=== PATIENT | male | born 1980 | race Caucasian/White ===

== ENCOUNTER 2016-02-29 16:21 | Emergency (ER) | payer OTHER ==
[~2016-02-29] VITALS: Ht 180.3 cm; Wt 111.6 kg
[~2016-02-29 16:21] MED LIST: ABILIFY15 MG PO; ANAPROX DS550 MG PO; ANUSOL-HC2.5% RC; ASPIR-LOW81 MG PO; ASPIRIN ENTERIC81 M1 PO; ASPIRIN81 M1 PO; ATARAX25 MG PO; ATIVAN0.5 MG PO; BLOOD PRESSURE MED; BLOOD PRESSURE PILL; BP MED; BP PO; CATAFLAM50 MG PO; CIPRO500 MG PO; CIPRODEX 0.3%-7.5 ML OT; CIPROFLOXACIN500 MG PO; CLARITIN-D 12 H1 TAB PO; CLARITIN10 MG PO; CLEOCIN HCL150 MG PO; DARVOCET N 1001 TAB PO; DAYPRO600 M1 PO; DEPAKOTE500 MG PO; DICLOFENAC POTA50 MG PO; DIVALPROEX SOD500 M1 PO; DOXYCYCLINE HY100 M3 PO; DOXYCYCLINE MO100 MG PO; DOXYCYCLINE100 M2 PO; FLEXERIL10 MG PO; FLEXERIL5 MG PO; FLOMAX0.4 MG PO; FLONASE 0.05% 121 EA NAS; FOLIC ACID1 MG PO; HYDROCODONE BIT1 T11 PO; HYDROXYZINE HCL50 MG PO; IBU-8800 MG PO; IBUPROFEN600 MG PO; KEFLEX500 MG PO; KEFTAB500 MG PO; LATU40TA PO; LATU40TA1 PO; LIPITOR40 MG PO; LISINOPRIL10 MG PO; LOMOTIL 0.025 M1 TAB PO; LOPRESSOR50 M1 PO; Lopressor25 MG PO; METOPROLOL25 MG PO; MIRALAX POWDER255 GM PO; MOTRIN600 MG PO; MOTRIN800 MG PO; MULTI VITAMINS1 TAB PO; MULTIPLE VITAMI1 CAP PO; MULTIVITAMIN1 CTB PO; NAPROSYN500 MG PO; NASONEX0.05 MG/AC NS; NATURE'S BLEND F1 MG PO; ONDANSETRON4 MG PO; PERCOCET 325 MG1 TA2 PO; PHENERGAN W/DM120 ML PO; PREDNICOT20 MG PO; PREDNISONE20 MG PO; PRILOSEC10 MG PO; PRILOSEC20 M2 PO; PRILOSEC20 MG PO; PROCTOCREAM-HC2.5% TP; Phenergan25 MG PO; REMERON15 MG PO; REMERON30 M1 PO; REMERON30 MG; REMERON30 MG PO; REMERON45 M1 PO; ROBITUSSIN DM 105 ML PO; TESSALON PERLE100 M1 PO; TORADOL10 MG PO; TRAMADOL HCL50 MG PO; TRAZADONE HYDR100 MG PO; TYLENOL W/CODEI1 TA2 PO; ULTRAM50 MG PO; VIBRAMYCIN100 MG PO; VITAMIN B-11 TAB PO; VOLTAREN50 M1 PO; WELLBUTRIN XL150 MG PO; ZANTAC 150150 MG PO; ZANTAC150 MG PO; ZITHROMAX Z PA250 MG PO; ZITHROMAX250 MG PO; ZOFRAN 4 MG ED2 TAB PO; ZOFRAN ODT4 MG PO; ZOFRAN ODT4 MG SL; ZOFRAN4 MG PO; ZYRTEC10 MG PO; Zofran4 MG PO; [UNRECOGNIZED DRUG - REMARK]
[2016-02-29 16:31] VITALS: BP 179/90
[2016-02-29] MEDS ORDERED: TRAZODONE150 MG PO (16:32)
[2016-02-29] MEDS ORDERED: Motrin,Rufen800 MG PO (18:07)
[2016-04-17] MEDS ORDERED: PANTOPRAZOLE SO40 MG PO (12:08)
[2016-05-06] MEDS ORDERED: NORCO 5-325 TA1 EACH PO (01:56)
== END 2016-02-29 18:09 | disposition home or self-care (01) ==
LOC: ED 16:21
DX: T14.8 Other injury of unspecified body region (principal); M54.2 Cervicalgia; M54.5 Low back pain; F17.200 Nicotine dependence, unspecified, uncomplicated; F31.9 Bipolar disorder, unspecified; K21.9 Gastro-esophageal reflux disease without esophagitis; F41.1 Generalized anxiety disorder; I10 Essential (primary) hypertension; Z87.442 Personal history of urinary calculi; Z90.89 Acquired absence of other organs; Z88.0 Allergy status to penicillin; Z88.8 Allergy status to other drugs, medicaments and biological substances; W18.49XA Other slipping, tripping and stumbling without falling, initial encounter; Y93.67 Activity, basketball; Y92.89 Other specified places as the place of occurrence of the external cause; Y99.9 Unspecified external cause status

== ENCOUNTER 2016-07-04 02:29 | Emergency (ER) | payer MEDICAID ==
[~2016-07-04] VITALS: Ht 180.3 cm; Wt 116.1 kg
[~2016-07-04 02:29] MED LIST changes: +Motrin,Rufen800 MG PO; +NORCO 5-325 TA1 EACH PO; +PANTOPRAZOLE SO40 MG PO; +TRAZODONE150 MG PO
[2016-07-04] MEDS ORDERED: VALIUM10 MG PO (02:34)
[2016-07-04 03:23] LABS: BASO % 0.4 % (0.0-1.0); EOS # 0.2 10*3/uL (0.0-0.4); EOS % 1.5 % (1.0-4.0); HEMATOCRIT 41.5 % (42.0-52.0); HEMOGLOBIN 14.9 g/dl (14.0-18.0); IG # 0.1 10*3/uL (0.0-0.1); LYMPH # 2.6 10*3/uL (1.3-4.4); LYMPH % 25.8 % (27.0-41.0); MEAN CELL VOLUME 82.7 fl (80.0-94.0); MEAN CORPUSCULAR HGB 29.7 pg (27.0-31.0); MEAN CORPUSCULAR HGB CONC 35.9 g/dl (33.0-37.0); MONO # 0.5 10*3/uL (0.1-1.0); MONO % 5.3 % (3.0-9.0); NEUT # 6.6 10*3/uL (2.3-7.9); NEUT % 66.5 % (47.0-73.0); PLATELET COUNT AUTOMATED 257 10*3/uL (130-400); RED BLOOD COUNT 5.02 10*6/uL (4.50-5.90); RED CELL DISTRI WIDTH 12.3 % (0-14.5); WHITE BLOOD COUNT 9.9 10*3/uL (4.8-10.8)
[2016-07-04 03:27] LABS: URINE AMPHETAMINES < 1000 (1000ng/ml); URINE BARBITURATES < 200 (200ng/ml); URINE COCAINE < 300 (300ng/ml)
[2016-07-04 03:46] LABS: ALBUMIN 4.3 gm/dl (3.1-4.5); ALKALINE PHOSPHATASE 97 U/L (45-117); BILIRUBIN, TOTAL 0.2 mg/dl (0.2-1.0); BUN 12 mg/dl (7-24); CARBON DIOXIDE 21 mmol/L (21-32); CHLORIDE 106 mmol/L (98-107); EST GLOM FILT AFRICAN AMERICAN > 60 ml/min; GLUCOSE 114 mg/dL (65-99); POTASSIUM 3.5 mmol/L (3.5-5.1); SGOT/AST 23 IU/L (3-35); SGPT/ALT 44 U/L (12-78); SODIUM 142 mmol/L (136-145); TOTAL PROTEIN 7.8 gm/dL (6.4-8.2)
[2016-07-04 06:20] VITALS: BP 125/55
== END 2016-07-04 07:42 | disposition home or self-care (01) ==
LOC: ED 02:29
PROVIDERS: Emergency Medicine
DX: F10.10 Alcohol abuse, uncomplicated (principal); K21.9 Gastro-esophageal reflux disease without esophagitis; I10 Essential (primary) hypertension; Z88.0 Allergy status to penicillin; Z88.8 Allergy status to other drugs, medicaments and biological substances

== ENCOUNTER 2016-07-11 21:54 | Emergency (ER) | payer MEDICAID ==
[~2016-07-11 21:54] MED LIST changes: +VALIUM10 MG PO
[2016-07-11 23:25] LABS: BASO # 0.1 10*3/uL (0.0-0.1); BASO % 0.5 % (0.0-1.0); EOS # 0.3 10*3/uL (0.0-0.4); EOS % 2.6 % (1.0-4.0); HEMATOCRIT 48.8 % (42.0-52.0); IG # 0.1 10*3/uL (0.0-0.1); LYMPH # 2.4 10*3/uL (1.3-4.4); LYMPH % 21.8 % (27.0-41.0); MEAN CELL VOLUME 83.7 fl (80.0-94.0); MEAN CORPUSCULAR HGB 29.2 pg (27.0-31.0); MEAN CORPUSCULAR HGB CONC 34.8 g/dl (33.0-37.0); MEAN PLATELET VOLUME 10.1 fl (9.6-12.3); MONO # 0.6 10*3/uL (0.1-1.0); NEUT # 7.7 10*3/uL (2.3-7.9); NEUT % 69.6 % (47.0-73.0); PLATELET COUNT AUTOMATED 281 10*3/uL (130-400); RED BLOOD COUNT 5.83 10*6/uL (4.50-5.90); RED CELL DISTRI WIDTH 12.3 % (0-14.5)
[2016-07-11 23:39] LABS: ALKALINE PHOSPHATASE 121 U/L (45-117); BILIRUBIN, TOTAL 0.6 mg/dl (0.2-1.0); BUN 8 mg/dl (7-24); CARBON DIOXIDE 27 mmol/L (21-32); CHLORIDE 104 mmol/L (98-107); EST GLOM FILT AFRICAN AMERICAN > 60 ml/min; GLUCOSE 90 mg/dL (65-99); POTASSIUM 4.2 mmol/L (3.5-5.1); SGOT/AST 26 IU/L (3-35); SGPT/ALT 48 U/L (12-78); SODIUM 141 mmol/L (136-145); TOTAL PROTEIN 8.7 gm/dL (6.4-8.2)
[2016-07-11] MEDS ORDERED: OMEPRAZOLE10 MG PO (23:42)
[2016-07-11] MEDS ORDERED: ZOFRAN4 MG PO (23:42)
[2016-07-11] MEDS ORDERED: CARAFATE1 G1 PO (23:42)
[2016-07-11 23:58] VITALS: BP 140/82
== END 2016-07-12 00:10 | disposition home or self-care (01) ==
LOC: ED 21:54
PROVIDERS: Nurse Practitioner Family
DX: K29.70 Gastritis, unspecified, without bleeding (principal); F17.200 Nicotine dependence, unspecified, uncomplicated; F31.9 Bipolar disorder, unspecified; K21.9 Gastro-esophageal reflux disease without esophagitis; I10 Essential (primary) hypertension; Z87.442 Personal history of urinary calculi; Z90.89 Acquired absence of other organs; Z79.899 Other long term (current) drug therapy; Z88.0 Allergy status to penicillin; Z88.8 Allergy status to other drugs, medicaments and biological substances

== ENCOUNTER 2016-07-24 03:32 | Emergency (ER) | payer MEDICAID ==
[~2016-07-24 03:32] MED LIST changes: +CARAFATE1 G1 PO; +OMEPRAZOLE10 MG PO
== END 2016-07-24 03:55 | disposition left against medical advice (07) ==
LOC: ED 03:32
DX: F10.10 Alcohol abuse, uncomplicated (principal); F17.200 Nicotine dependence, unspecified, uncomplicated; F31.9 Bipolar disorder, unspecified; K21.9 Gastro-esophageal reflux disease without esophagitis; I10 Essential (primary) hypertension; Z87.442 Personal history of urinary calculi; Z90.89 Acquired absence of other organs; Z98.890 Other specified postprocedural states; Z88.0 Allergy status to penicillin; Z88.6 Allergy status to analgesic agent; Z88.8 Allergy status to other drugs, medicaments and biological substances

== ENCOUNTER 2016-08-13 16:14 | Inpatient (IN) | payer MEDICAID ==
[~2016-08-13] VITALS: Ht 180.3 cm; Wt 112.1 kg
--- NOTE | ~2016-08-13 | CON ---
[place], [place] REPORT OF CONSULTATION NAME: JOYCE OLIVA JR UNIT #: [id number] ROOM: 515 DOCTOR: PHILOMENA MCKEONNAHUM BIRTHDATE: [birth year] DOS: 08/15/2016 HISTORY OF PRESENT ILLNESS: The patient came in with recurrent precordial chest discomfort. The patient had a workup done more than a year ago. No recent workup. The patient has a history of chewing tobacco, history of recurrent chest discomfort, history of hypertension, long time with a strong family history of heart disease. No significant dyspnea. No history of heart attack. No cardiac surgery. REVIEW OF SYSTEMS: HEENT: Unremarkable. CARDIOPULMONARY: As described. GASTROINTESTINAL: Unremarkable. NEUROLOGIC: The patient denies any syncope or presyncope. PHYSICAL EXAMINATION: VITAL SIGNS: Stable. GENERAL: Alert, not in any acute distress. NECK: No jugular venous distention noted. SKIN: Warm, not diaphoretic. NECK: Supple. LUNGS: No rales heard. HEART: S1, S2 regular. No gallops. ABDOMEN: Soft. Moderately obese. EXTREMITIES: No significant edema noted. IMPRESSION: Angina pectoris, evaluating for ischemic heart disease, strong family stressors. PLAN: Lexiscan with a Cardiolite could be done as an outpatient, Dr. Sorensen will perform and follow the patient. He has seen Dr. Sorensen before. Weekend I am covering Dr. Sorensen. Thank you very much for asking me to see the patient. I will follow the patient. NAHUM QUACH MD CM:CONSTR:REPORT OF CONSULTATION 1659 08/16/16 2252 interface IRAIS SORENSEN MD
--- NOTE | ~2016-08-13 | PR ---
[place], [place] PROGRESS NOTE NAME: JOYCE OLIVA JR UNIT #: [id number] ROOM: 515 DOCTOR: MELQUIADES LAM MD BIRTHDATE: [birth year] DOS: 08/17/2016 SUBJECTIVE: This man has been in this hospital many times with chest pain and has had stress test done in the past for the same and was unremarkable. He was admitted to the hospital because of left-sided chest pain and also numbness of the shoulder, arm, forearm and hand. All fingers are numb and he volunteered that his left leg became numb partly at the same time. When he walks around, this feeling does not get any worse and this has been present for the last 3 days and has not let up at all. There has not been any sweating, undue shortness of breath or any dizziness, no orthopnea. PHYSICAL EXAMINATION: GENERAL: This is a patient who is moderately obese, very pleasant, alert, fairly comfortable. His complexion is fine. VITAL SIGNS: Pulse is 64 and regular. Blood pressure 130/73. NECK: Normal JVP. CARDIOVASCULAR: Auscultation is unremarkable. LUNGS: Clear. EXTREMITIES: No edema of the lower extremities. IMPRESSION: This patient has left-sided chest pain, numbness and numbness of the whole left upper extremity and partial numbness of the left leg. The symptoms have not abated in the last 3 days. I think a common link for this needs to be sought and cervical spine may be the seat of his problem and perhaps a CT scan of the cervical spine would be of some help. He has already been scheduled for a stress Cardiolite for tomorrow morning, which Dr. Dueñas will do. I thank you on behalf of Dr. Dueñas for this consult. MELQUIADES LAM MD CM:PNTRANS [id number] MELQUIADES LAM MD 08/18/16 0124 interface
[2016-08-13 16:24] VITALS: BP 143/92
[2016-08-13 16:51] LABS: BASO % 0.4 % (0.0-1.0); EOS # 0.4 10*3/uL (0.0-0.4); EOS % 4.8 % (1.0-4.0); HEMATOCRIT 43.2 % (42.0-52.0); HEMOGLOBIN 15.2 g/dl (14.0-18.0); LYMPH # 2.4 10*3/uL (1.3-4.4); LYMPH % 28.2 % (27.0-41.0); MEAN CELL VOLUME 83.6 fl (80.0-94.0); MEAN CORPUSCULAR HGB 29.4 pg (27.0-31.0); MEAN CORPUSCULAR HGB CONC 35.2 g/dl (33.0-37.0); MEAN PLATELET VOLUME 9.8 fl (9.6-12.3); MONO # 0.6 10*3/uL (0.1-1.0); MONO % 6.8 % (3.0-9.0); NEUT # 5.1 10*3/uL (2.3-7.9); NEUT % 59.6 % (47.0-73.0); PLATELET COUNT AUTOMATED 249 10*3/uL (130-400); RED BLOOD COUNT 5.17 10*6/uL (4.50-5.90); RED CELL DISTRI WIDTH 12.1 % (0-14.5); WHITE BLOOD COUNT 8.5 10*3/uL (4.8-10.8)
[2016-08-13 16:59] LABS: PROTHROMBIN TIME 10.4 SECONDS (9.0-12.4)
[2016-08-13 17:10] LABS: ALBUMIN 4.1 gm/dl (3.1-4.5); ALKALINE PHOSPHATASE 85 U/L (45-117); BILIRUBIN, TOTAL 0.4 mg/dl (0.2-1.0); BUN 9 mg/dl (7-24); CARBON DIOXIDE 26 mmol/L (21-32); CHLORIDE 104 mmol/L (98-107); EST GLOM FILT AFRICAN AMERICAN > 60 ml/min; GLUCOSE 248 mg/dL (65-99); MAGNESIUM 1.9 mg/dL (1.5-2.1); POTASSIUM 3.8 mmol/L (3.5-5.1); SGOT/AST 22 IU/L (3-35); SGPT/ALT 53 U/L (12-78); SODIUM 141 mmol/L (136-145); TOTAL PROTEIN 7.2 gm/dL (6.4-8.2)
[2016-08-13 17:14] LABS: TROPONIN I < 0.015 ng/ml (<0.045)
[2016-08-13 18:01] VITALS: BP 142/80
[2016-08-13 18:35] VITALS: BP 122/76
[2016-08-13 19:39] VITALS: BP 126/76
[2016-08-13 20:57] VITALS: BP 132/70
[2016-08-14] VITALS: BP 116/59
[2016-08-14 06:37] LABS: BASO % 0.6 % (0.0-1.0); EOS # 0.4 10*3/uL (0.0-0.4); EOS % 6.3 % (1.0-4.0); HEMATOCRIT 40.4 % (42.0-52.0); HEMOGLOBIN 14.3 g/dl (14.0-18.0); LYMPH # 3.1 10*3/uL (1.3-4.4); LYMPH % 44.2 % (27.0-41.0); MEAN CELL VOLUME 84.5 fl (80.0-94.0); MEAN CORPUSCULAR HGB 29.9 pg (27.0-31.0); MEAN CORPUSCULAR HGB CONC 35.4 g/dl (33.0-37.0); MEAN PLATELET VOLUME 10.2 fl (9.6-12.3); MONO # 0.4 10*3/uL (0.1-1.0); MONO % 6.1 % (3.0-9.0); NEUT % 42.4 % (47.0-73.0); PLATELET COUNT AUTOMATED 242 10*3/uL (130-400); RED BLOOD COUNT 4.78 10*6/uL (4.50-5.90); RED CELL DISTRI WIDTH 12.1 % (0-14.5)
[2016-08-14 06:59] LABS: HEMOGLOBIN A1c 5.7 % (4.8-5.6)
[2016-08-14 07:04] LABS: BUN 11 mg/dl (7-24); CARBON DIOXIDE 26 mmol/L (21-32); CHLORIDE 106 mmol/L (98-107); CHOLESTEROL 149 mg/dL (<200); EST GLOM FILT AFRICAN AMERICAN > 60 ml/min; FREE T4 0.89 ng/dl (0.76-1.46); GLUCOSE 104 mg/dL (65-99); HDL CHOLESTEROL 24 mg/dl (40-60); LDL CHOLESTEROL 52 mg/dL (9-159); MAGNESIUM 1.9 mg/dL (1.5-2.1); PHOSPHOROUS 3.9 mg/dL (2.5-4.9); POTASSIUM 4.1 mmol/L (3.5-5.1); SODIUM 143 mmol/L (136-145); TRIGLYCERIDES 364 mg/dl (<150); VLDL CHOLESTEROL 73 mg/dL (6-40)
[2016-08-14 07:26] LABS: FOLIC ACID 6.81 ng/mL (>5.38); VITAMIN D, 25-HYDROXY 30.8 ng/mL (30-100)
[2016-08-14 08:00] VITALS: BP 115/59
[2016-08-14 12:00] VITALS: BP 113/62
[2016-08-14 16:00] VITALS: BP 110/64; BP 126/72
[2016-08-14 20:00] VITALS: BP 151/87
[2016-08-15] VITALS: BP 117/64
[2016-08-15 08:00] VITALS: BP 124/66
[2016-08-15 12:00] VITALS: BP 126/68
[2016-08-15 16:00] VITALS: BP 138/62
[2016-08-15 20:00] VITALS: BP 141/76
[2016-08-16] VITALS: BP 134/76; BP 134/78
[2016-08-16 08:00] VITALS: BP 120/66
[2016-08-16 12:00] VITALS: BP 143/68
[2016-08-16] MEDS ORDERED: OMEPRAZOLE10 MG PO (13:19)
[2016-08-16 16:00] VITALS: BP 125/64
[2016-08-16 20:00] VITALS: BP 151/77
[2016-08-17] VITALS: BP 113/59
[2016-08-17 07:01] LABS: BASO # 0.1 10*3/uL (0.0-0.1); BASO % 0.7 % (0.0-1.0); EOS # 0.5 10*3/uL (0.0-0.4); EOS % 5.3 % (1.0-4.0); HEMATOCRIT 40.9 % (42.0-52.0); HEMOGLOBIN 14.6 g/dl (14.0-18.0); LYMPH # 3.1 10*3/uL (1.3-4.4); LYMPH % 34.3 % (27.0-41.0); MEAN CELL VOLUME 83.3 fl (80.0-94.0); MEAN CORPUSCULAR HGB 29.7 pg (27.0-31.0); MEAN CORPUSCULAR HGB CONC 35.7 g/dl (33.0-37.0); MEAN PLATELET VOLUME 10.2 fl (9.6-12.3); MONO # 0.6 10*3/uL (0.1-1.0); MONO % 6.6 % (3.0-9.0); NEUT # 4.7 10*3/uL (2.3-7.9); NEUT % 52.8 % (47.0-73.0); PLATELET COUNT AUTOMATED 214 10*3/uL (130-400); RED BLOOD COUNT 4.91 10*6/uL (4.50-5.90)
[2016-08-17 07:29] LABS: EST GLOM FILT AFRICAN AMERICAN > 60 ml/min
[2016-08-17 08:00] VITALS: BP 118/66
[2016-08-17 12:00] VITALS: BP 126/61
[2016-08-17 16:30] VITALS: BP 130/73
[2016-08-17 20:00] VITALS: BP 150/76
[2016-08-18] VITALS: BP 124/67
[2016-08-18 12:00] VITALS: BP 144/96
== END 2016-08-18 16:02 | disposition home or self-care (01) | DRG 313 ==
LOC: ED 16:14 → 5E 18:10 → EDHOLD 18:10 → 5E 18:16
PROVIDERS: Emergency Medicine; Internal Medicine Hospice and Palliative Medicine
DX: R07.89 Other chest pain (principal); I20.9 Angina pectoris, unspecified; I11.0 Hypertensive heart disease with heart failure; I50.32 Chronic diastolic (congestive) heart failure; I45.81 Long QT syndrome; F31.9 Bipolar disorder, unspecified; F41.1 Generalized anxiety disorder; K21.9 Gastro-esophageal reflux disease without esophagitis; E78.5 Hyperlipidemia, unspecified; F17.200 Nicotine dependence, unspecified, uncomplicated; E66.09 Other obesity due to excess calories; R00.0 Tachycardia, unspecified; R73.9 Hyperglycemia, unspecified; Z88.0 Allergy status to penicillin; Z88.8 Allergy status to other drugs, medicaments and biological substances; Z87.442 Personal history of urinary calculi; Z83.3 Family history of diabetes mellitus; Z82.49 Family history of ischemic heart disease and other diseases of the circulatory system; Z82.3 Family history of stroke; Z79.899 Other long term (current) drug therapy; Z71.6 Tobacco abuse counseling; Z68.34 Body mass index [BMI] 34.0-34.9, adult

== ENCOUNTER 2016-09-10 21:38 | Emergency (ER) | payer MEDICAID ==
[~2016-09-10] VITALS: Ht 180.3 cm; Wt 111.6 kg
--- NOTE | ~2016-09-10 | EKG ---
[place], [place] ELECTROCARDIOGRAM REPORT NAME: JOYCE OLIVA JR UNIT #: [id number] ROOM: DOCTOR: IRAIS SORENSEN MD BIRTHDATE: [birth year] DOS: 09/10/2016 TIME: 22:03:28 Sinus rhythm, normal axis, normal intervals. Nonspecific ST-T changes. IRAIS SORENSEN MD CM:EKGRPT:ELECTROCARDIOGRAM REPORT 1124 1144 IRAIS SORENSEN MD
[2016-09-10 21:40] VITALS: BP 120/67
[2016-09-10 22:05] LABS: BASO # 0.1 10*3/uL (0.0-0.1); BASO % 0.4 % (0.0-1.0); EOS # 0.4 10*3/uL (0.0-0.4); EOS % 3.3 % (1.0-4.0); HEMATOCRIT 44.5 % (42.0-52.0); HEMOGLOBIN 16.1 g/dl (14.0-18.0); IG # 0.1 10*3/uL (0.0-0.1); LYMPH # 3.1 10*3/uL (1.3-4.4); LYMPH % 26.1 % (27.0-41.0); MEAN CELL VOLUME 82.3 fl (80.0-94.0); MEAN CORPUSCULAR HGB 29.8 pg (27.0-31.0); MEAN CORPUSCULAR HGB CONC 36.2 g/dl (33.0-37.0); MEAN PLATELET VOLUME 10.5 fl (9.6-12.3); MONO # 0.6 10*3/uL (0.1-1.0); NEUT # 7.6 10*3/uL (2.3-7.9); NEUT % 64.8 % (47.0-73.0); PLATELET COUNT AUTOMATED 286 10*3/uL (130-400); RED BLOOD COUNT 5.41 10*6/uL (4.50-5.90); RED CELL DISTRI WIDTH 12.5 % (0-14.5); WHITE BLOOD COUNT 11.7 10*3/uL (4.8-10.8)
[2016-09-10] MEDS ORDERED: DOXEPIN25 MG PO (22:14)
[2016-09-10 22:15] LABS: INTERNATIONAL NORM RATIO 0.9 (2.0-3.5)
[2016-09-10 22:20] LABS: ALBUMIN 4.1 gm/dl (3.1-4.5); ALKALINE PHOSPHATASE 88 U/L (45-117); BILIRUBIN, TOTAL 0.4 mg/dl (0.2-1.0); BUN 18 mg/dl (7-24); CARBON DIOXIDE 25 mmol/L (21-32); CHLORIDE 104 mmol/L (98-107); EST GLOM FILT AFRICAN AMERICAN > 60 ml/min; GLUCOSE 108 mg/dL (65-99); MAGNESIUM 1.9 mg/dL (1.5-2.1); SGOT/AST 35 IU/L (3-35); SGPT/ALT 50 U/L (12-78); SODIUM 138 mmol/L (136-145); TOTAL PROTEIN 7.8 gm/dL (6.4-8.2)
[2016-09-10 22:22] LABS: TROPONIN I < 0.015 ng/ml (<0.045)
== END 2016-09-11 00:56 | disposition home or self-care (01) ==
LOC: ED 21:38
PROVIDERS: Student in an Organized Health Care Education/Training Program
DX: R07.89 Other chest pain (principal); F17.200 Nicotine dependence, unspecified, uncomplicated; K21.9 Gastro-esophageal reflux disease without esophagitis; I11.0 Hypertensive heart disease with heart failure; I50.9 Heart failure, unspecified; E78.5 Hyperlipidemia, unspecified; Z88.0 Allergy status to penicillin; Z88.8 Allergy status to other drugs, medicaments and biological substances; Z79.899 Other long term (current) drug therapy

== ENCOUNTER → 2016-09-17 | Outpatient (CLI) | payer MEDICAID ==
[~2016-09-17] MED LIST changes: +DOXEPIN25 MG PO
== END | disposition home or self-care (01) ==
LOC: RAD 15:53
DX: M54.2 Cervicalgia (principal); M25.512 Pain in left shoulder

== ENCOUNTER 2016-09-29 14:54 | Emergency (ER) | payer MEDICAID ==
[~2016-09-29] VITALS: Ht 180.3 cm; Wt 111.6 kg
[2016-09-29 15:13] VITALS: BP 155/85
[2016-09-29 15:30] VITALS: BP 155/85
[2016-09-29 15:42] LABS: BASO % 0.3 % (0.0-1.0); EOS # 0.3 10*3/uL (0.0-0.4); EOS % 2.9 % (1.0-4.0); HEMATOCRIT 45.3 % (42.0-52.0); HEMOGLOBIN 15.8 g/dl (14.0-18.0); LYMPH # 2.1 10*3/uL (1.3-4.4); LYMPH % 24.1 % (27.0-41.0); MEAN CORPUSCULAR HGB 29.3 pg (27.0-31.0); MEAN CORPUSCULAR HGB CONC 34.9 g/dl (33.0-37.0); MEAN PLATELET VOLUME 10.1 fl (9.6-12.3); MONO # 0.4 10*3/uL (0.1-1.0); MONO % 4.1 % (3.0-9.0); NEUT # 5.9 10*3/uL (2.3-7.9); NEUT % 68.3 % (47.0-73.0); PLATELET COUNT AUTOMATED 245 10*3/uL (130-400); RED BLOOD COUNT 5.39 10*6/uL (4.50-5.90); RED CELL DISTRI WIDTH 12.2 % (0-14.5); WHITE BLOOD COUNT 8.6 10*3/uL (4.8-10.8)
[2016-09-29 15:47] LABS: URINE AMPHETAMINES < 1000 (1000ng/ml); URINE BARBITURATES < 200 (200ng/ml); URINE COCAINE < 300 (300ng/ml)
[2016-09-29 15:55] LABS: ALBUMIN 4.4 gm/dl (3.1-4.5); ALKALINE PHOSPHATASE 101 U/L (45-117); BILIRUBIN, TOTAL 0.4 mg/dl (0.2-1.0); BUN 11 mg/dl (7-24); CARBON DIOXIDE 27 mmol/L (21-32); CHLORIDE 102 mmol/L (98-107); EST GLOM FILT AFRICAN AMERICAN > 60 ml/min; GLUCOSE 109 mg/dL (65-99); SGOT/AST 35 IU/L (3-35); SGPT/ALT 64 U/L (12-78); SODIUM 138 mmol/L (136-145); TOTAL PROTEIN 7.5 gm/dL (6.4-8.2)
[2016-09-29 17:45] VITALS: BP 140/80
[2016-09-29 19:16] VITALS: BP 134/92
== END 2016-09-29 21:00 | disposition home or self-care (01) ==
LOC: ED 14:54 → EDHOLD 16:38 → ED 16:38
PROVIDERS: Nurse Practitioner Family
DX: F10.239 Alcohol dependence with withdrawal, unspecified (principal); K21.9 Gastro-esophageal reflux disease without esophagitis; I10 Essential (primary) hypertension; I50.32 Chronic diastolic (congestive) heart failure; F31.9 Bipolar disorder, unspecified; Z88.0 Allergy status to penicillin; Z88.8 Allergy status to other drugs, medicaments and biological substances; Z79.899 Other long term (current) drug therapy

== ENCOUNTER 2016-11-01 21:47 | Emergency (ER) | payer MEDICAID ==
[~2016-11-01] VITALS: Ht 177.8 cm; Wt 93.0 kg
[2016-11-01 21:52] VITALS: BP 157/86
[2016-11-01] MEDS ORDERED: CYCLOBENZAPRINE10 MG PO (23:20)
[2016-11-01] MEDS ORDERED: MEDROL DOSEPAK4 MG PO (23:20)
== END 2016-11-01 23:35 | disposition home or self-care (01) ==
LOC: ED 21:47
DX: S16.1XXA Strain of muscle, fascia and tendon at neck level, initial encounter (principal); Z90.89 Acquired absence of other organs; Z98.890 Other specified postprocedural states; Z79.899 Other long term (current) drug therapy; Z88.0 Allergy status to penicillin; Z88.8 Allergy status to other drugs, medicaments and biological substances; Z88.6 Allergy status to analgesic agent; W22.8XXA Striking against or struck by other objects, initial encounter; Y93.61 Activity, american tackle football; Y92.89 Other specified places as the place of occurrence of the external cause; Y99.9 Unspecified external cause status

== ENCOUNTER 2016-11-03 01:22 | Emergency (ER) | payer MEDICAID ==
[~2016-11-03] VITALS: Ht 180.3 cm; Wt 120.2 kg
[~2016-11-03 01:22] MED LIST changes: +CYCLOBENZAPRINE10 MG PO; +MEDROL DOSEPAK4 MG PO
[2016-11-03 01:43] LABS: BASO % 0.1 % (0.0-1.0); EOS % 0.2 % (1.0-4.0); HEMATOCRIT 43.8 % (42.0-52.0); HEMOGLOBIN 15.6 g/dl (14.0-18.0); LYMPH # 3.6 10*3/uL (1.3-4.4); LYMPH % 21.3 % (27.0-41.0); MEAN CELL VOLUME 82.5 fl (80.0-94.0); MEAN CORPUSCULAR HGB 29.4 pg (27.0-31.0); MEAN CORPUSCULAR HGB CONC 35.6 g/dl (33.0-37.0); MEAN PLATELET VOLUME 9.9 fl (9.6-12.3); MONO % 6.1 % (3.0-9.0); NEUT % 71.6 % (47.0-73.0); PLATELET COUNT AUTOMATED 289 10*3/uL (130-400); RED BLOOD COUNT 5.31 10*6/uL (4.50-5.90); RED CELL DISTRI WIDTH 12.6 % (0-14.5); WHITE BLOOD COUNT 16.8 10*3/uL (4.8-10.8)
[2016-11-03 02:01] LABS: ACETAMINOPHEN (TYLENOL) < 2.0 ug/ml (10-30); ALBUMIN 4.4 gm/dl (3.1-4.5); ALKALINE PHOSPHATASE 109 U/L (45-117); BUN 8 mg/dl (7-24); CHLORIDE 103 mmol/L (98-107); CREATININE 0.97 mg/dL (0.70-1.30); POTASSIUM 3.9 mmol/L (3.5-5.1); SGOT/AST 35 IU/L (3-35); SGPT/ALT 49 U/L (12-78); SODIUM 139 mmol/L (136-145); TOTAL PROTEIN 8.3 gm/dL (6.4-8.2)
[2016-11-03 02:41] LABS: BILIRUBIN NEGATIVE (NEGATIVE); BLOOD 2+ (NEGATIVE); CLARITY CLEAR (CLEAR); COLOR YELLOW (YELLOW); GLUCOSE NEGATIVE (NEGATIVE); KETONE NEGATIVE (NEGATIVE); LEUKO ESTERASE NEGATIVE (NEGATIVE); NITRITE NEGATIVE (NEGATIVE); SPECIFIC GRAVITY <= 1.005 (1.005-1.030); UROBILINOGEN 0.2 E.U./dl (0.2-1.0)
[2016-11-03 02:50] LABS: URINE AMPHETAMINES < 1000 (1000ng/ml); URINE BARBITURATES < 200 (200ng/ml); URINE BENZODIAZEPINES < 200 (200ng/ml); URINE CANNABINOIDS (THC) < 50 (50ng/ml); URINE COCAINE < 300 (300ng/ml); URINE METHADONE < 300 (300ng/ml); URINE OPIATES < 300 (300ng/ml); URINE PHENCYCLIDINE < 25 (25ng/ml)
[2016-11-03 06:22] VITALS: BP 115/46
== END 2016-11-03 09:50 | disposition home or self-care (01) ==
LOC: ED 01:22
PROVIDERS: Emergency Medicine Emergency Medical Services
DX: F10.129 Alcohol abuse with intoxication, unspecified (principal); F31.9 Bipolar disorder, unspecified; I11.0 Hypertensive heart disease with heart failure; I50.9 Heart failure, unspecified; E78.5 Hyperlipidemia, unspecified; K21.9 Gastro-esophageal reflux disease without esophagitis; E66.9 Obesity, unspecified; Z87.442 Personal history of urinary calculi; Z90.89 Acquired absence of other organs; Z98.890 Other specified postprocedural states; Z88.0 Allergy status to penicillin; Z88.6 Allergy status to analgesic agent; Z88.8 Allergy status to other drugs, medicaments and biological substances; Z79.899 Other long term (current) drug therapy

== ENCOUNTER 2016-11-21 23:23 | Emergency (ER) | payer MEDICAID ==
[~2016-11-21] VITALS: Ht 180.3 cm; Wt 109.8 kg
[2016-11-21 23:39] VITALS: BP 162/109
[2016-11-22] MEDS ORDERED: CLARITIN10 MG PO (01:05)
== END 2016-11-22 02:05 | disposition home or self-care (01) ==
LOC: ED 23:23
DX: L29.9 Pruritus, unspecified (principal); T48.3X5A Adverse effect of antitussives, initial encounter; F17.200 Nicotine dependence, unspecified, uncomplicated; Z90.89 Acquired absence of other organs; Z87.442 Personal history of urinary calculi; Z79.899 Other long term (current) drug therapy; Z88.0 Allergy status to penicillin; Z88.6 Allergy status to analgesic agent; Y92.9 Unspecified place or not applicable

== ENCOUNTER 2016-12-10 23:52 | Inpatient (IN) | payer OTHER ==
[~2016-12-10] VITALS: Ht 180.3 cm; Wt 107.6 kg
[2016-12-11] VITALS (8 sets, daily range): BP systolic 124–176; BP diastolic 74–109
--- NOTE | 2016-12-11 00:20 | NUR ---
EKG DONE ON 12-03-16 AT 0000 WAS DONE BY EDUCATIONAL INSTITUTION PRESIDENT.
[2016-12-11 00:27] LABS: BASO # 0.1 10*3/uL (0.0-0.1); BASO % 0.7 % (0.0-1.0); EOS # 0.3 10*3/uL (0.0-0.4); HEMATOCRIT 42.4 % (42.0-52.0); HEMOGLOBIN 14.8 g/dl (14.0-18.0); LYMPH # 2.6 10*3/uL (1.3-4.4); LYMPH % 30.4 % (27.0-41.0); MEAN CELL VOLUME 84.3 fl (80.0-94.0); MEAN CORPUSCULAR HGB 29.4 pg (27.0-31.0); MEAN CORPUSCULAR HGB CONC 34.9 g/dl (33.0-37.0); MEAN PLATELET VOLUME 9.7 fl (9.6-12.3); MONO # 0.4 10*3/uL (0.1-1.0); MONO % 4.6 % (3.0-9.0); NEUT # 5.2 10*3/uL (2.3-7.9); NEUT % 60.9 % (47.0-73.0); PLATELET COUNT AUTOMATED 249 10*3/uL (130-400); RED BLOOD COUNT 5.03 10*6/uL (4.50-5.90); RED CELL DISTRI WIDTH 12.6 % (0-14.5); WHITE BLOOD COUNT 8.5 10*3/uL (4.8-10.8)
[2016-12-11 00:37] LABS: ACT PARTIAL THROMBO TIME 24.7 SECONDS (20.8-31.5)
[2016-12-11 00:43] LABS: ALBUMIN 4.1 gm/dl (3.1-4.5); ALKALINE PHOSPHATASE 82 U/L (45-117); BUN 9 mg/dl (7-24); CHLORIDE 104 mmol/L (98-107); CREATININE 0.77 mg/dL (0.70-1.30); LIPASE 172 U/L (73-393); MAGNESIUM 2.6 mg/dL (1.5-2.1); POTASSIUM 3.6 mmol/L (3.5-5.1); SGOT/AST 23 IU/L (3-35); SGPT/ALT 50 U/L (12-78); SODIUM 141 mmol/L (136-145); TOTAL PROTEIN 7.4 gm/dL (6.4-8.2); TROPONIN I < 0.015 ng/ml (<0.045)
--- NOTE | 2016-12-11 01:09 | NUR ---
PATIENT STATES NO RELIEF AFTER THE FIRST AND SECOND NITRO. VS RECORDED
[2016-12-11 01:21] LABS: BILIRUBIN NEGATIVE (NEGATIVE); BLOOD NEGATIVE (NEGATIVE); CLARITY CLEAR (CLEAR); COLOR YELLOW (YELLOW); GLUCOSE NEGATIVE (NEGATIVE); KETONE NEGATIVE (NEGATIVE); LEUKO ESTERASE NEGATIVE (NEGATIVE); NITRITE NEGATIVE (NEGATIVE); SPECIFIC GRAVITY <= 1.005 (1.005-1.030); UROBILINOGEN 0.2 E.U./dl (0.2-1.0)
--- NOTE | 2016-12-11 01:30 | NUR ---
A 36, admitted to , under the services of ERIC Lawrence DO with a diagnosis of CHEST PAIN. Chief complaint is CHEST PAIN; SOB. Patient arrived via stretcher from ER. Monitor applied. Initial assessment completed. Vital signs taken and recorded. ERIC LAWRENCE DO notified of admission to the unit. Orders received. See assessment for past medical history, medications and allergies. Patient and/or family oriented to unit. [facility] visitation policy reviewed. Clothing/patient valuable form completed. SANDRA BUTLER
[2016-12-11 01:32] LABS: RBC 0-2 rbc/hpf (0-2)
[2016-12-11 01:35] LABS: URINE AMPHETAMINES < 1000 (1000ng/ml); URINE BARBITURATES < 200 (200ng/ml); URINE BENZODIAZEPINES < 200 (200ng/ml); URINE CANNABINOIDS (THC) < 50 (50ng/ml); URINE COCAINE < 300 (300ng/ml); URINE METHADONE < 300 (300ng/ml); URINE OPIATES < 300 (300ng/ml); URINE PHENCYCLIDINE < 25 (25ng/ml)
--- NOTE | 2016-12-11 02:10 | NUR ---
CALLED DR. LAM PERTAINING TO PT. CONSULT. DR. LAM STATED TO CALL DR. SORENSEN AT 6 AM.
--- NOTE | 2016-12-11 02:15 | NUR ---
UPON ENTERING ROOM PT. TALKING ON PHONE WITH OXYGEN OFF. PT. ENDED PHONE CALL; THIS RN ENCOURAGED PT. TO USE OXYGEN PT. WAS C/O BEING SOB. NO DISTRESS NOTED; NO SOB NOTED. WILL CONTINUE TO MONITOR. CALL LIGHT WITHIN REACH.
--- NOTE | 2016-12-11 06:00 | NUR ---
TOOK PO MEDICATION WITHOUT DIFFICULTY. VOICES NO C/O AT THIS TIME. CALL LIGHT WITHIN REACH.
--- NOTE | 2016-12-11 06:30 | NUR ---
CALLED DR. SORENSEN PERTAINING TO CONSULT. DR. SORENSEN STATED TO CALL MARIA ISABEL AT HIS OFFICE & SCHEDULE AN OUTPATIENT HEART CATHERIZATION. CALLED DR. STACY TO INFORM HIM OF THIS. ALSO INFORMED PATIENT.
--- NOTE | 2016-12-11 09:58 | NUR ---
SPODE WITH DR. VELASQUEZ HE INSTRUCTED ME TO CONTACT MARIA ISABEL AND SCHEDULE A CATH PRCEDURE IF PATIENT AGREES FOR Wednesday. CONFIRMED WITH PATIENT THAT HE IS IN AGREEMENT TO HAVE CATH ON WEDNESDAY. CALLED MARIA ISABEL TO SCHEDULE PROCEDURE AND SHE REQUESTED A DEMOGRAPHIC SHEET TO BE FAXED TO . INFORMATION WAS FAXED PER FORCER MAKER.
--- NOTE | 2016-12-11 10:17 | NUR ---
PRN NORCO GIVEN FOR PAIN IN HIS CHEST, ARM, AND JAW RATED 8/10. PATIENT SEEMS AGIATED. WILL MONITOR.
--- NOTE | 2016-12-11 11:10 | NUR ---
PATIENT SAID NORCO WAS NOT EFFECTIVE.
--- NOTE | 2016-12-11 12:53 | NUR ---
PER PATIENTS MOTHER, ADRIAN MIRANDA, THE PATIENT IS BIPOLAR, ADHAD, HE IS SUICIDAL, ABUSES HIS MEDICATION, AND AT TIMES HE DOES NOT TAKE MEDICATIONS PRESCRIBED. SHE ALSO STATES THAT "HE IS A COMPULSIVE LIAR." ALICJA RIBERA IS HIS PROJECTS MANAGER THROUGH [employer]. SHE STATES HE IS A BINGE DRINKER AND SHE HAS CUSTODY OF TWO OF HIS CHILDREN.
[2016-12-11] MEDS ORDERED: ATIVAN1 MG PO (13:05)
[2016-12-11] MEDS ORDERED: MULTIPLE VITAM1 EAC2 PO (13:08)
--- NOTE | 2016-12-11 14:34 | NUR ---
PRN ATIVAN GIVEN PER PATIENT REQUEST FOR ANXIETY. WILL MONITOR.
--- NOTE | 2016-12-11 14:46 | NUR ---
ADRIAN CALLED TO SEE PATIENT IS BEING DISCHARGED. RELAYED TO HER THAT DISCHARGE ORDER IS NOT IN OF YET.
[2016-12-11] MEDS ORDERED: LOPRESSOR25 MG PO (14:53)
--- NOTE | 2016-12-11 15:15 | NUR ---
ATIVAN EFFECTIVE, PATIENT SATISFIED.
--- NOTE | 2016-12-11 17:02 | NUR ---
Discharge instructions reviewed with patient/family. Patient receptive and verbalizes understanding. Follow-up care arranged. Written instructions given to patient/family. YOHANA CHAO
== END 2016-12-11 17:02 | disposition home or self-care (01) | DRG 392 ==
LOC: ED 23:52 → EDHOLD 12-11 00:43 → 4E 12-11 00:43
PROVIDERS: Emergency Medicine; ADMIT Internal Medicine
DX: K21.9 Gastro-esophageal reflux disease without esophagitis (principal); F10.231 Alcohol dependence with withdrawal delirium; I11.0 Hypertensive heart disease with heart failure; I50.32 Chronic diastolic (congestive) heart failure; E83.41 Hypermagnesemia; F31.30 Bipolar disorder, current episode depressed, mild or moderate severity, unspecified; F10.229 Alcohol dependence with intoxication, unspecified; R73.9 Hyperglycemia, unspecified; E78.5 Hyperlipidemia, unspecified; F41.1 Generalized anxiety disorder; E66.09 Other obesity due to excess calories; Y90.6 Blood alcohol level of 120-199 mg/100 ml; Z88.0 Allergy status to penicillin; Z88.8 Allergy status to other drugs, medicaments and biological substances; Z87.442 Personal history of urinary calculi; Z83.3 Family history of diabetes mellitus; Z82.49 Family history of ischemic heart disease and other diseases of the circulatory system; Z82.3 Family history of stroke; Z79.899 Other long term (current) drug therapy; Z71.6 Tobacco abuse counseling; Z72.0 Tobacco use; Z68.33 Body mass index [BMI] 33.0-33.9, adult

== ENCOUNTER 2017-01-19 05:54 | Inpatient (IN) | payer OTHER ==
[~2017-01-19] VITALS: Ht 180.3 cm; Wt 105.0 kg
[2017-01-19] VITALS (10 sets, daily range): BP systolic 110–144; BP diastolic 63–85
--- NOTE | ~2017-01-19 | CON ---
[place], [place] REPORT OF CONSULTATION NAME: JOYCE OLIVA JR UNIT #: [id number] ROOM: 518 DOCTOR: PATTI MARIN MD BIRTHDATE: [birth year] DOS: REQUESTING PHYSICIAN: Dr. Araujo. REASON FOR CONSULTATION: Chest pain. ASSESSMENT: 1. Current presentation with recurrent chest pain. 2. Similar complaint 2 months ago, status post cardiac catheterization with Dr. Dueñas was reported to be normal. 3. Tobacco abuse. 4. Alcohol abuse. 5. Marijuana abuse. 6. Significant early family history of heart disease. 7. Hypertension. 8. Hyperlipidemia. 9. Obesity with probable obstructive sleep apnea. 10. Symptomatic palpitation. PLAN: 1. Cycle cardiac enzymes. 2. Check sed rate. 3. CRP. 4. Echocardiogram in a.m. 5. Bilateral carotid duplex. 6. Stop aspirin. 7. Toradol/Indocin/colchicine. 8. Smoking cessation. 9. Alcoholic Anonymous. 10. Consider sleep study and can be done as an outpatient. 11. Exercise and weight loss. 12. IV fluid (watch for DTs, delirium tremens). HISTORY OF PRESENT ILLNESS: The patient is a pleasant 36-year-old gentleman unknown to our practice, but well known to Dr. Dueñas. He is requesting specifically to be transferred to our service that was discussed with him in detail. The patient presented to the hospital with complaint of chest pain that occurred last night while resting. Pain is left-sided. It is heavy, tight, did radiate to the left arm and the left jaw. The pain is worse with deep inspiration and improves with leaning forward. It has more to do with position more than activity. On presentation to the Emergency Room, the patient ____ nitroglycerin patch did not cause any significant relief of his pain. The patient apparently had similar presentation 2 months ago, underwent cardiac catheterization with Dr. Dueñas, which was reported to be normal. The patient started to have this pain yesterday, woke him up. The pain lasted about 4-5 hours. It did reach at some time 10/10 with no associated nausea, vomiting or diaphoresis. No fever. No chills. No night sweats. Maintains good appetite. No weight loss. The patient sleeps on one pillow with no reported PND, orthopnea or pedal edema. The patient is reporting symptomatic palpitation that has been going on for the past year, but there was increase in frequency and [place], [place] REPORT OF CONSULTATION NAME: JOYCE OLIVA JR UNIT #: [id number] ROOM: 518 DOCTOR: PATTI MARIN MD BIRTHDATE: [birth year] intensity recently. This can last about 30 minutes, but no associated cardiac complaint. The patient able to walk for a mile without any provoked cardiac complaints, but any more activity will cause him to be short of breath and tired. No fever. No chills. No night sweats. Maintains good appetite. No weight loss. PAST MEDICAL HISTORY: As detailed in my assessment. SOCIAL HISTORY: The patient has been chewing tobacco since he was 18 years old. He has also had history of heavy alcohol abuse, last was yesterday, 19 beers, also he smokes marijuana. FAMILY HISTORY: The patient's mother is still alive and healthy. His dad had myocardial infarction at age 40. He has 2 sisters with no heart problems. CURRENT MEDICATIONS: On presentation to the presentation to the hospital are multivitamin, Lovenox, Remeron, Lopressor, latitude, Lipitor, Ativan, Restoril, Zofran, Dulcolax, Shellman and Tylenol. ALLERGIES: The patient is allergic to PENICILLIN, PEPCID and BENADRYL. REVIEW OF SYSTEMS: Currently, the patient denies any headache, diplopia or blurry vision. No fever. No chills. No night sweats. No abdominal pain. No bright red blood per rectum or tarry stools. The patient admits to joint pain, but no muscular pain. No anxiety. No depression. No polyuria. No polydipsia. No skin rash. Review of the systems has been negative. PHYSICAL EXAMINATION: GENERAL: The patient is alert and oriented x 3, quite pleasant, completely flat in bed, does not appear in any distress. He claims he is still having pain about 4/10. VITAL SIGNS: Blood pressure 131/63, heart rate 96, respiration rate of 16, temperature 98.5, T max is 98.6. HEENT: Extraocular muscle intact. Pupils equal, round, reactive to light. Conjunctivae: No pallor. Throat: No petechiae. NECK: Good carotid upstroke. Significant bruit could be heard over carotids. HEART: S1, S2 with systolic ejection murmur at right upper sternal border, holosystolic murmur at left upper and towards the apex. No rub. No sternal. Loud P2. CHEST AND BACK: No deformities. LUNGS: Clear to auscultation. Good air movement. No wheezing or rales. ABDOMEN: Obese, soft, nontender, present bowel sounds. No masses. No bruits. LOWER EXTREMITIES: There is no significant edema, with faint distal pulses. NEUROLOGIC: Grossly nonfocal. SKIN: No significant rash. LABORATORY DATA: White count 8.3, hemoglobin 15.2. There is high lymphocyte count. C-reactive protein is 0.31. Potassium is 3.5, glucose 144, magnesium 2.3. Alcohol level 206. Troponin less than 0.01. [place], [place] REPORT OF CONSULTATION NAME: JOYCE OLIVA JR UNIT #: [id number] ROOM: 518 DOCTOR: PATTI MARIN MD BIRTHDATE: [birth year] PATTI MARIN MD CM:CONSTR:REPORT OF CONSULTATION 56 01/19/171915 interface
[~2017-01-19 05:54] MED LIST changes: +ATIVAN1 MG PO; +LOPRESSOR25 MG PO; +MULTIPLE VITAM1 EAC2 PO
--- NOTE | 2017-01-19 06:16 | NUR ---
PT STATES HE TOOK ONE NITRO AND "SOME" ASPIRIN WHEN HE BEGAN TO HAVE CHEST PAIN
[2017-01-19 06:27] LABS: BASO # 0.1 10*3/uL (0.0-0.1); BASO % 0.6 % (0.0-1.0); EOS # 0.4 10*3/uL (0.0-0.4); EOS % 4.5 % (1.0-4.0); HEMATOCRIT 43.1 % (42.0-52.0); HEMOGLOBIN 15.2 g/dl (14.0-18.0); LYMPH # 3.6 10*3/uL (1.3-4.4); LYMPH % 43.1 % (27.0-41.0); MEAN CELL VOLUME 83.4 fl (80.0-94.0); MEAN CORPUSCULAR HGB 29.4 pg (27.0-31.0); MEAN CORPUSCULAR HGB CONC 35.3 g/dl (33.0-37.0); MEAN PLATELET VOLUME 9.9 fl (9.6-12.3); MONO # 0.5 10*3/uL (0.1-1.0); MONO % 5.9 % (3.0-9.0); NEUT # 3.8 10*3/uL (2.3-7.9); NEUT % 45.7 % (47.0-73.0); PLATELET COUNT AUTOMATED 262 10*3/uL (130-400); RED BLOOD COUNT 5.17 10*6/uL (4.50-5.90); RED CELL DISTRI WIDTH 12.9 % (0-14.5); WHITE BLOOD COUNT 8.3 10*3/uL (4.8-10.8)
[2017-01-19 06:35] LABS: ACT PARTIAL THROMBO TIME 24.7 SECONDS (20.8-31.5); INTERNATIONAL NORM RATIO 0.9 (2.0-3.5)
--- NOTE | 2017-01-19 06:40 | NUR ---
PT STATES HE IS UNABLE TO PROVIDE URINE SAMPLE AT THIS TIME
[2017-01-19 06:46] LABS: ALBUMIN 4.4 gm/dl (3.1-4.5); ALKALINE PHOSPHATASE 107 U/L (45-117); BUN 9 mg/dl (7-24); CHLORIDE 110 mmol/L (98-107); CREATININE 0.89 mg/dL (0.70-1.30); POTASSIUM 3.5 mmol/L (3.5-5.1); SGOT/AST 17 IU/L (3-35); SGPT/ALT 37 U/L (12-78); SODIUM 145 mmol/L (136-145)
[2017-01-19 06:47] LABS: TROPONIN I < 0.015 ng/ml (<0.045)
--- NOTE | 2017-01-19 07:54 | NUR ---
PT RESTING QUIETLY,NO C/O.VITALS STABLE. MONITOR NSR 80---RAJENDRA RAM RN
--- NOTE | 2017-01-19 09:10 | NUR ---
PT AWAKE AT THIS TIME.APPEARS IN NO ACUTE DISTRESS,STATES "I'M STILL HAVING CHEST PAIN",DR BURNETT TO BE MADE AWARE.---RAJENDRA RAM RN
--- NOTE | 2017-01-19 10:37 | NUR ---
PT UNABLE TO VOID EVERY TIME HE WAS ASKED FOR A SAMPLE FOR LAB.HE HAS BEEN DRINKING FLUIDS. --RAJENDRA RAM RN
--- NOTE | 2017-01-19 10:46 | NUR ---
A 36, admitted to , under the services of SUMMER Nunez DO with a diagnosis of ANGINA. Chief complaint is CHEST PAIN. Patient arrived via stretcher from ER. Monitor applied. Initial assessment completed. Vital signs taken and recorded. SUMMER NUNEZ DO notified of admission to the unit. Orders received. See assessment for past medical history, medications and allergies. Patient and/or family oriented to unit. [address] visitation policy reviewed. Clothing/patient valuable form completed. REY STEVENS
--- NOTE | 2017-01-19 10:52 | NUR ---
PT VOIDED PRIOR TO GOING UPSTAIRS.U/A BEING SENT---RAJENDRA RAM RN
[2017-01-19 11:00] LABS: BILIRUBIN NEGATIVE (NEGATIVE); BLOOD 1+ (NEGATIVE); CLARITY CLEAR (CLEAR); COLOR YELLOW (YELLOW); GLUCOSE NEGATIVE (NEGATIVE); KETONE NEGATIVE (NEGATIVE); LEUKO ESTERASE NEGATIVE (NEGATIVE); NITRITE NEGATIVE (NEGATIVE); SPECIFIC GRAVITY 1.015 (1.005-1.030); UROBILINOGEN 0.2 E.U./dl (0.2-1.0)
[2017-01-19 11:08] LABS: EPITHELIAL CELLS 0-2; URINE AMPHETAMINES < 1000 (1000ng/ml); URINE BARBITURATES < 200 (200ng/ml); URINE BENZODIAZEPINES < 200 (200ng/ml); URINE CANNABINOIDS (THC) < 50 (50ng/ml); URINE COCAINE < 300 (300ng/ml); URINE METHADONE < 300 (300ng/ml); URINE OPIATES < 300 (300ng/ml); WBC 0-2 wbc/hpf (0-5)
[2017-01-19 11:09] LABS: URINE PHENCYCLIDINE < 25 (25ng/ml)
[2017-01-19] MEDS ORDERED: LIPITOR20 MG PO (12:00)
--- NOTE | 2017-01-19 12:02 | NUR ---
PHYSICIAN NOTIFIED MED REC IS COMPLETED
--- NOTE | 2017-01-19 12:53 | NUR ---
MEDICATED WITH PRN NORCO FOR "10/10" HEADACHE.
--- NOTE | 2017-01-19 15:40 | NUR ---
DR. CASTELLANOS WAS NOTIFIED OF THE CONSULT.
--- NOTE | 2017-01-19 17:29 | NUR ---
MEDICATIED FOR 9/10 HEAD ACHE VSS PT LAYING IN BED DOES NOT APPEAR IN DISTRESS.
[2017-01-19 17:46] LABS: THYROID STIM HORMONE (HS) 1.09 uIU/ml (0.358-4.75)
--- NOTE | 2017-01-19 20:11 | NUR ---
1950 RESTING IN BED TALKING WITH VISITOR. IV WITH MVI INFUSED. SITE HEP LOCKED. NO DISTRESS NOTED. C/O CHEST PAIN. SKIN W/D. RESPIRATIONS EASY. IN NO VISIBLE DISTRESS. RATES PAIN A "5". HAD TOPREDOL AND NORCO ON THE PRIOR SHIFT. GAVE FIRST TIME DOSE OF INDOCIN PER ORDER. WILL CONT TO MONITOR. MONITOR, NSR.
--- NOTE | 2017-01-19 21:12 | NUR ---
ROUTINE REMERON GIVEN ORDERED. ATIVAN 2MG IV GIVEN PER REQUEST FOR ANXIETY/ AGITATION. WILL MONITOR.
--- NOTE | 2017-01-19 21:57 | NUR ---
EARLIER MITACO EFFECTIVE. RESTING IN BED TALKING ON THE PHONE.
--- NOTE | 2017-01-19 21:58 | NUR ---
EARLIER ATIVAN WAS EFFECTIVE.
--- NOTE | 2017-01-19 22:04 | NUR ---
RESTING IN BED TALKING ON THE PHONE. NO DISTRESS NOTED. NO EVIDENCE OF DT'S. CONDITION GUARDED.
[2017-01-20] VITALS: BP 124/75
--- NOTE | 2017-01-20 07:04 | NUR ---
REFUSED AM LABS
--- NOTE | 2017-01-20 07:30 | NUR ---
VITAL SIGNS STABLE. PATIENT SLEEPING, AWOKE TO VERBAL STIMULI. DENIES ANY PAIN OR DISCOMFORT AT THIS TIME. EQUAL BILATERAL HAND CONTRACT PROCESSOR. SKIN TURGOR IS GOOD. CAPILLARY REFILL LESS THAN 3. HEART SOUNDS NORMAL. LUNG SOUNDS CLEAR. ABDOMEN SOFT, NON TENDER, NON DISTENDED. BOWEL SOUNDS X4. IV SITE TO LEFT ANTECUBITAL ARM CLEAN DRY AND INTACT. WILL CONTINUE TO ASSESS. [facility]
[2017-01-20 07:54] VITALS: BP 110/60
--- NOTE | 2017-01-20 08:30 | NUR ---
ORDNANCE ENGINEERING TECHNICIAN VS. PT OFF FLOOR FOR TESTING.
--- NOTE | 2017-01-20 09:15 | NUR ---
PATIENT TO CAROTID DOPPLER VIA WHEELCHAIR, VITAL SIGNS STABLE. [facility]
--- NOTE | 2017-01-20 09:44 | NUR ---
PATIENT BACK FROM CAROTID DOPPLER VIA WHEELCHAIR, VITALS STABLE. [facility]
[2017-01-20 12:00] VITALS: BP 120/70
--- NOTE | 2017-01-20 12:18 | NUR ---
PATIENT COMPLAINING OF MIDSTERNAL CHEST PAIN, RATING 7 OUT OF 1-10. PATIENT STATES "I HAVE CRUSHING CHEST PAIN, IT HURTS TO TOUCH". SKIN PINK WARM AND DRY. RESPIRATIONS EASY AND REGULAR, 18. BLOOD PRESSURE 120/70, HEART RATE 58 PER MONITOR. PATIENT REQUESTS SOMETHING FOR PAIN AND ANXIETY, STATES "I FEEL NERVOUS". SOON PATIENT STOPS SPEAKING HE FALLS ASLEEP, HE IS EASILY AWAKE. NORCO 1 PO GIVEN FOR PAIN. ATIVAN 2MG IVP GIVEN BY MEJIA HERNANDEZ RN. WILL CONTINUE TO ASSESS. [facility]
--- NOTE | 2017-01-20 13:15 | NUR ---
PATIENTS PAIN RATING 4 OUT OF 1-10 PAIN SCALE. HE STATES "I FEEL A LITTLE BIT BETTER, MY CHEST IS NOT HEAVY". PATIENT SLEEPING WHEN NOT TALKING, AWAKES EASILY. MEDICATION EFFECTIVE. [facility]
[2017-01-20] MEDS ORDERED: COLCHICINE0.6 M1 PO ×2 (13:53→14:07)
[2017-01-20] MEDS ORDERED: INDOMETHACIN25 M1 PO (14:10)
--- NOTE | 2017-01-20 15:58 | NUR ---
Discharge instructions reviewed with patient/family. Patient receptive and verbalizes understanding. Follow-up care arranged. Written instructions given to patient/family. DICK MIMS
== END 2017-01-20 15:58 | disposition home or self-care (01) | DRG 315 ==
LOC: ED 05:54 → EDHOLD 10:02 → 5E 10:02
PROVIDERS: Emergency Medicine Emergency Medical Services; Family Medicine; ADMIT Emergency Medicine
DX: I31.9 Disease of pericardium, unspecified (principal); I50.32 Chronic diastolic (congestive) heart failure; E87.8 Other disorders of electrolyte and fluid balance, not elsewhere classified; E83.41 Hypermagnesemia; I11.0 Hypertensive heart disease with heart failure; Z68.41 Body mass index [BMI] 40.0-44.9, adult; R00.0 Tachycardia, unspecified; R73.9 Hyperglycemia, unspecified; E78.5 Hyperlipidemia, unspecified; F41.1 Generalized anxiety disorder; K21.9 Gastro-esophageal reflux disease without esophagitis; F10.229 Alcohol dependence with intoxication, unspecified; F17.220 Nicotine dependence, chewing tobacco, uncomplicated; E66.9 Obesity, unspecified; F31.9 Bipolar disorder, unspecified; Z88.0 Allergy status to penicillin; Z88.8 Allergy status to other drugs, medicaments and biological substances; Z71.6 Tobacco abuse counseling; Z79.899 Other long term (current) drug therapy; Z82.49 Family history of ischemic heart disease and other diseases of the circulatory system; Z83.3 Family history of diabetes mellitus; Z82.3 Family history of stroke

== ENCOUNTER 2017-01-29 11:21 | Emergency (ER) | payer OTHER ==
[~2017-01-29] VITALS: Ht 180.3 cm; Wt 112.0 kg
[~2017-01-29 11:21] MED LIST changes: +COLCHICINE0.6 M1 PO; +INDOMETHACIN25 M1 PO; +LIPITOR20 MG PO
[2017-01-29 11:29] VITALS: BP 140/88
[2017-01-29 11:53] LABS: BASO % 0.3 % (0.0-1.0); EOS # 0.3 10*3/uL (0.0-0.4); EOS % 3.3 % (1.0-4.0); HEMATOCRIT 43.2 % (42.0-52.0); HEMOGLOBIN 15.7 g/dl (14.0-18.0); LYMPH # 2.9 10*3/uL (1.3-4.4); LYMPH % 29.8 % (27.0-41.0); MEAN CELL VOLUME 82.9 fl (80.0-94.0); MEAN CORPUSCULAR HGB 30.1 pg (27.0-31.0); MEAN CORPUSCULAR HGB CONC 36.3 g/dl (33.0-37.0); MEAN PLATELET VOLUME 9.6 fl (9.6-12.3); MONO # 0.6 10*3/uL (0.1-1.0); MONO % 5.7 % (3.0-9.0); NEUT # 5.8 10*3/uL (2.3-7.9); NEUT % 60.6 % (47.0-73.0); PLATELET COUNT AUTOMATED 223 10*3/uL (130-400); RED BLOOD COUNT 5.21 10*6/uL (4.50-5.90); RED CELL DISTRI WIDTH 12.6 % (0-14.5); WHITE BLOOD COUNT 9.7 10*3/uL (4.8-10.8)
[2017-01-29 12:01] LABS: ACT PARTIAL THROMBO TIME 23.4 SECONDS (20.8-31.5)
[2017-01-29 12:08] LABS: ALBUMIN 4.5 gm/dl (3.1-4.5); ALKALINE PHOSPHATASE 99 U/L (45-117); BUN 16 mg/dl (7-24); CHLORIDE 103 mmol/L (98-107); CREATININE 0.98 mg/dL (0.70-1.30); POTASSIUM 3.5 mmol/L (3.5-5.1); SGOT/AST 22 IU/L (3-35); SGPT/ALT 55 U/L (12-78); SODIUM 137 mmol/L (136-145)
[2017-01-29 12:24] LABS: ETHYL ALCOHOL < 3.0 mg/dl (<3)
== END 2017-01-29 12:48 | disposition home or self-care (01) ==
LOC: ED 11:21
PROVIDERS: Emergency Medicine
DX: F10.20 Alcohol dependence, uncomplicated (principal); F32.9 Major depressive disorder, single episode, unspecified; I50.9 Heart failure, unspecified; I10 Essential (primary) hypertension; E78.00 Pure hypercholesterolemia, unspecified; E83.42 Hypomagnesemia; K21.9 Gastro-esophageal reflux disease without esophagitis; Z88.0 Allergy status to penicillin; Z88.8 Allergy status to other drugs, medicaments and biological substances; Z79.899 Other long term (current) drug therapy; Z90.89 Acquired absence of other organs

== ENCOUNTER 2017-02-13 02:37 | Emergency (ER) | payer OTHER | END 2017-02-13 02:53 | disposition left against medical advice (07) | LOC: ED 02:37 | DX: R07.89 Other chest pain (principal); K21.9 Gastro-esophageal reflux disease without esophagitis; I10 Essential (primary) hypertension; R73.9 Hyperglycemia, unspecified; E83.41 Hypermagnesemia; E78.00 Pure hypercholesterolemia, unspecified; I50.9 Heart failure, unspecified; F32.9 Major depressive disorder, single episode, unspecified; F10.10 Alcohol abuse, uncomplicated; Z88.0 Allergy status to penicillin; Z88.8 Allergy status to other drugs, medicaments and biological substances; Z79.899 Other long term (current) drug therapy ==

== ENCOUNTER → 2017-03-08 | Outpatient (CLI) | payer OTHER ==
[~2017-03-08] MED LIST changes: +ASPIRIN CHEWABL81 MG PO
== END | disposition home or self-care (01) ==
LOC: LAB 14:24
DX: R19.7 Diarrhea, unspecified (principal)

== ENCOUNTER 2017-03-09 19:18 | Emergency (ER) | payer OTHER ==
[~2017-03-09] VITALS: Ht 180.3 cm; Wt 111.6 kg
--- NOTE | ~2017-03-09 | EKG ---
[place], [place] ELECTROCARDIOGRAM REPORT NAME: JOYCE OLIVA JR UNIT #: [id number] ROOM: DOCTOR: MELQUIADES LAM MD BIRTHDATE: [birth year] DOS: 03/09/2017 TIME: 1923 hours IMPRESSION: 1. Normal sinus rhythm at 100 beats per minute. 2. The tracing is normal. 3. No previous tracing is available for comparison. MELQUIADES ALM MD CM:EKGRPT:ELECTROCARDIOGRAM REPORT 1133 1157 MELQUIADES LAM MD
[~2017-03-09 19:18] MED LIST changes: -ASPIRIN CHEWABL81 MG PO
[2017-03-09] MEDS ORDERED: ASPIRIN CHEWABL81 MG PO (19:32)
[2017-03-09 19:36] LABS: BASO % 0.3 % (0.0-1.0); EOS # 0.5 10*3/uL (0.0-0.4); EOS % 5.7 % (1.0-4.0); HEMOGLOBIN 16.6 g/dl (14.0-18.0); LYMPH # 3.1 10*3/uL (1.3-4.4); LYMPH % 32.4 % (27.0-41.0); MEAN CELL VOLUME 82.7 fl (80.0-94.0); MEAN CORPUSCULAR HGB 29.9 pg (27.0-31.0); MEAN CORPUSCULAR HGB CONC 36.1 g/dl (33.0-37.0); MEAN PLATELET VOLUME 10.1 fl (9.6-12.3); MONO # 0.7 10*3/uL (0.1-1.0); MONO % 7.4 % (3.0-9.0); NEUT # 5.1 10*3/uL (2.3-7.9); PLATELET COUNT AUTOMATED 247 10*3/uL (130-400); RED BLOOD COUNT 5.56 10*6/uL (4.50-5.90); RED CELL DISTRI WIDTH 12.1 % (0-14.5); WHITE BLOOD COUNT 9.4 10*3/uL (4.8-10.8)
[2017-03-09 19:44] LABS: ACT PARTIAL THROMBO TIME 22.9 SECONDS (20.8-31.5)
[2017-03-09 19:53] LABS: ALBUMIN 4.8 gm/dl (3.1-4.5); ALKALINE PHOSPHATASE 111 U/L (45-117); BUN 18 mg/dl (7-24); CHLORIDE 102 mmol/L (98-107); CREATININE 1.09 mg/dL (0.70-1.30); POTASSIUM 3.4 mmol/L (3.5-5.1); SGOT/AST 37 IU/L (3-35); SGPT/ALT 73 U/L (12-78); SODIUM 139 mmol/L (136-145); TOTAL PROTEIN 8.2 gm/dL (6.4-8.2)
[2017-03-09 19:58] LABS: TROPONIN I < 0.015 ng/ml (<0.045)
[2017-03-09 21:00] VITALS: BP 132/70
== END 2017-03-09 21:49 | disposition home or self-care (01) ==
LOC: ED 19:18
PROVIDERS: Student in an Organized Health Care Education/Training Program
DX: R07.89 Other chest pain (principal); F32.9 Major depressive disorder, single episode, unspecified; K21.9 Gastro-esophageal reflux disease without esophagitis; I11.0 Hypertensive heart disease with heart failure; I50.9 Heart failure, unspecified; E78.00 Pure hypercholesterolemia, unspecified; R73.9 Hyperglycemia, unspecified; E83.41 Hypermagnesemia; F10.10 Alcohol abuse, uncomplicated; Z90.89 Acquired absence of other organs; Z88.0 Allergy status to penicillin; Z88.8 Allergy status to other drugs, medicaments and biological substances; Z79.899 Other long term (current) drug therapy; Z79.82 Long term (current) use of aspirin

== ENCOUNTER 2017-04-17 03:03 | Inpatient (IN) | payer OTHER ==
[~2017-04-17] VITALS: Ht 180.3 cm; Wt 113.9 kg
[2017-04-17] VITALS (14 sets, daily range): BP systolic 116–153; BP diastolic 62–86
--- NOTE | ~2017-04-17 | CON ---
[place], [place] REPORT OF CONSULTATION NAME: JOYCE OLIVA JR UNIT #: [id number] ROOM: [place] [address] DOCTOR: ILDA CHOWDARY MD BIRTHDATE: [birth year] DOS: 04/18/2017 REASON FOR CONSULTATION: Suicide attempt by overdose and attempted to cut his wrist. HISTORY OF PRESENT ILLNESS: The patient was seen, chart reviewed and spoke with the nursing staff. The patient is a 37-year-old white male with long history of mental health illness, multiple prior psychiatric hospitalizations and multiple suicide attempts, who was brought into the ER by EMS after the patient overdosed on an unknown amount of Remeron and Ativan as well as he attempted to cut his left hand also with a razor blade. The patient was not able to succeed, but he has a superficial laceration noted on the left hand. The patient was pleasant and cooperative during the interview. He reports being depressed, down, sad and helpless since the of one of his "very close shiva" on April 09. The patient mentioned that he his shiva was sick and he has been feeling depressed since then. He reports being compliant with his medication, but he says that the medication was not doing anything. He mentioned that particular day the patient started drinking alcohol and became increasingly depressed and thinking about taking his life, which he tried to do by overdosing on pills. He said that he also tried to cut his wrist, but not able to succede. The patient mentioned that he is not suicidal now, but still feels depressed and hopeless. He denied any symptoms of psychosis, jasmeet or hypomania. PAST MEDICAL HISTORY: Significant for hypertension. PAST PSYCHIATRIC HISTORY: Multiple prior psychiatric hospitalizations, multiple prior suicide attempts, cousin committed suicide. The patient denied having any gun at home. He mentioned that he was taking Remeron and Latuda at home. SUBSTANCE ABUSE HISTORY: The patient mentioned that he drinks alcohol everyday, "too much" since the age of 21. SOCIAL HISTORY: He was born and raised in [place], high school graduate, once since 2005, currently , has four kids, on SSI, lives by himself. MENTAL STATUS EXAMINATION: The patient was pleasant and cooperative, described his mood as "depressed." Affect was constricted. Thought process goal directed. No flight of ideas, loosening of association. He denied auditory or visual hallucination. No delusion or paranoia noted. He denied suicidal ideation, intent or plan. He also denied homicidal ideation, intent or plan, but he feels depressed. Insight and judgment poor to fair. ASSESSMENT: Bipolar disorder, currently very depressed, status post suicide attempt. [place], [place] REPORT OF CONSULTATION NAME: JOYCE OLIVA JR UNIT #: [id number] ROOM: [place] [address] DOCTOR: ILDA CHOWDARY MD BIRTHDATE: [birth year] PLAN: 1. Continue current care on the medical floor. 2. The patient needs to be hospitalized in a psychiatric unit for further care and stabilization. If he refuses, he needs to be pink slipped based on the fact that the patient had multiple prior psychiatric hospitalizations, multiple prior suicide attempts and also had a high risk as his cousin committed suicide in the family. We will sign off in this case. The plan was discussed with the nursing staff. If there is any question or concern, please give us a call. ILDA CHOWDARY MD CM:CONSTR:REPORT OF CONSULTATION 1014 04/18/17 1119 interface
[~2017-04-17 03:03] MED LIST changes: +ASPIRIN CHEWABL81 MG PO; -ATIVAN1 MG PO; -LATU40TA1 PO; +LATU80TA PO; -LIPITOR20 MG PO; +LIPITOR80 MG PO
[2017-04-17 03:37] LABS: BILIRUBIN NEGATIVE (NEGATIVE); BLOOD TRACE-LYSED (NEGATIVE); CLARITY CLEAR (CLEAR); COLOR YELLOW (YELLOW); GLUCOSE NEGATIVE (NEGATIVE); KETONE NEGATIVE (NEGATIVE); LEUKO ESTERASE NEGATIVE (NEGATIVE); NITRITE NEGATIVE (NEGATIVE); PH 5.5 (5.0-9.0); SPECIFIC GRAVITY <= 1.005 (1.005-1.030); UROBILINOGEN 0.2 E.U./dl (0.2-1.0)
[2017-04-17 03:48] LABS: RBC 0-2 rbc/hpf (0-2); WBC 0-2 wbc/hpf (0-5)
[2017-04-17 03:49] LABS: URINE AMPHETAMINES < 1000 (1000ng/ml); URINE BARBITURATES < 200 (200ng/ml); URINE BENZODIAZEPINES < 200 (200ng/ml); URINE CANNABINOIDS (THC) < 50 (50ng/ml); URINE COCAINE < 300 (300ng/ml); URINE METHADONE < 300 (300ng/ml); URINE OPIATES < 300 (300ng/ml); URINE PHENCYCLIDINE < 25 (25ng/ml)
[2017-04-17 07:03] LABS: BASO % 0.2 % (0.0-1.0); EOS # 0.2 10*3/uL (0.0-0.4); EOS % 1.9 % (1.0-4.0); HEMATOCRIT 38.5 % (42.0-52.0); HEMOGLOBIN 13.6 g/dl (14.0-18.0); LYMPH # 2.6 10*3/uL (1.3-4.4); LYMPH % 30.3 % (27.0-41.0); MEAN CELL VOLUME 84.1 fl (80.0-94.0); MEAN CORPUSCULAR HGB 29.7 pg (27.0-31.0); MEAN CORPUSCULAR HGB CONC 35.3 g/dl (33.0-37.0); MEAN PLATELET VOLUME 10.1 fl (9.6-12.3); MONO # 0.4 10*3/uL (0.1-1.0); MONO % 4.5 % (3.0-9.0); NEUT # 5.4 10*3/uL (2.3-7.9); NEUT % 62.9 % (47.0-73.0); PLATELET COUNT AUTOMATED 250 10*3/uL (130-400); RED BLOOD COUNT 4.58 10*6/uL (4.50-5.90); RED CELL DISTRI WIDTH 12.2 % (0-14.5); WHITE BLOOD COUNT 8.6 10*3/uL (4.8-10.8)
[2017-04-17 07:20] LABS: ALKALINE PHOSPHATASE 113 U/L (45-117); BUN 8 mg/dl (7-24); CHLORIDE 108 mmol/L (98-107); CREATININE 0.89 mg/dL (0.70-1.30); POTASSIUM 4.2 mmol/L (3.5-5.1); SGOT/AST 28 IU/L (3-35); SGPT/ALT 42 U/L (12-78); SODIUM 141 mmol/L (136-145); TOTAL PROTEIN 7.2 gm/dL (6.4-8.2)
[2017-04-17 07:30] LABS: ACETAMINOPHEN (TYLENOL) < 2.0 ug/ml (10-30)
[2017-04-18] VITALS: BP 147/83
[2017-04-18 04:00] VITALS: BP 116/55
[2017-04-18 06:14] LABS: ALBUMIN 3.7 gm/dl (3.1-4.5); ALKALINE PHOSPHATASE 109 U/L (45-117); BASO # 0.1 10*3/uL (0.0-0.1); BASO % 0.7 % (0.0-1.0); BUN 11 mg/dl (7-24); CHLORIDE 106 mmol/L (98-107); CHOLESTEROL 109 mg/dL (<200); CREATININE 0.96 mg/dL (0.70-1.30); EOS # 0.4 10*3/uL (0.0-0.4); EOS % 5.2 % (1.0-4.0); FREE T4 0.84 ng/dl (0.76-1.46); HDL CHOLESTEROL 33 mg/dl (40-60); HEMATOCRIT 39.2 % (42.0-52.0); HEMOGLOBIN 13.8 g/dl (14.0-18.0); LDL CHOLESTEROL 28 mg/dL (9-159); LYMPH # 3.5 10*3/uL (1.3-4.4); LYMPH % 41.7 % (27.0-41.0); MEAN CELL VOLUME 85.8 fl (80.0-94.0); MEAN CORPUSCULAR HGB 30.2 pg (27.0-31.0); MEAN CORPUSCULAR HGB CONC 35.2 g/dl (33.0-37.0); MEAN PLATELET VOLUME 10.4 fl (9.6-12.3); MONO # 0.6 10*3/uL (0.1-1.0); MONO % 7.4 % (3.0-9.0); NEUT # 3.8 10*3/uL (2.3-7.9); NEUT % 44.6 % (47.0-73.0); PLATELET COUNT AUTOMATED 253 10*3/uL (130-400); POTASSIUM 4.1 mmol/L (3.5-5.1); RED BLOOD COUNT 4.57 10*6/uL (4.50-5.90); RED CELL DISTRI WIDTH 12.3 % (0-14.5); SGOT/AST 22 IU/L (3-35); SGPT/ALT 43 U/L (12-78); SODIUM 139 mmol/L (136-145); TOTAL PROTEIN 6.9 gm/dL (6.4-8.2); TRIGLYCERIDES 239 mg/dl (<150); VLDL CHOLESTEROL 48 mg/dL (6-40); WHITE BLOOD COUNT 8.4 10*3/uL (4.8-10.8)
[2017-04-18 06:56] LABS: ACT PARTIAL THROMBO TIME 22.6 SECONDS (20.8-31.5); INTERNATIONAL NORM RATIO 0.9 (2.0-3.5)
[2017-04-18 07:30] LABS: VITAMIN D, 25-HYDROXY 27.9 ng/mL (30-100)
[2017-04-18 08:00] VITALS: BP 127/82
[2017-04-18 12:00] VITALS: BP 133/79
[2017-04-18 16:00] VITALS: BP 129/81
[2017-04-18 20:00] VITALS: BP 124/76
[2017-04-19] VITALS: BP 144/87
[2017-04-19 04:00] VITALS: BP 126/80
[2017-04-19 05:10] LABS: BASO % 0.4 % (0.0-1.0); EOS # 0.6 10*3/uL (0.0-0.4); EOS % 6.4 % (1.0-4.0); HEMATOCRIT 41.3 % (42.0-52.0); HEMOGLOBIN 14.6 g/dl (14.0-18.0); LYMPH # 3.4 10*3/uL (1.3-4.4); MEAN CELL VOLUME 84.3 fl (80.0-94.0); MEAN CORPUSCULAR HGB 29.8 pg (27.0-31.0); MEAN CORPUSCULAR HGB CONC 35.4 g/dl (33.0-37.0); MEAN PLATELET VOLUME 9.9 fl (9.6-12.3); MONO # 0.7 10*3/uL (0.1-1.0); NEUT # 4.7 10*3/uL (2.3-7.9); NEUT % 49.8 % (47.0-73.0); PLATELET COUNT AUTOMATED 261 10*3/uL (130-400); RED CELL DISTRI WIDTH 11.9 % (0-14.5); WHITE BLOOD COUNT 9.4 10*3/uL (4.8-10.8)
[2017-04-19 05:22] LABS: BUN 13 mg/dl (7-24); CHLORIDE 103 mmol/L (98-107); CREATININE 0.89 mg/dL (0.70-1.30); POTASSIUM 4.1 mmol/L (3.5-5.1); SODIUM 139 mmol/L (136-145)
[2017-04-19 08:00] VITALS: BP 127/84
[2017-04-19 12:00] VITALS: BP 122/73
[2017-04-19 16:00] VITALS: BP 135/74
== END 2017-04-19 19:24 | disposition home health service (06) | DRG 918 ==
LOC: ED 03:03 → ICCU 08:00 → EDHOLD 08:00 → ICCU 08:21
PROVIDERS: Emergency Medicine Emergency Medical Services; Internal Medicine
DX: T43.022A Poisoning by tetracyclic antidepressants, intentional self-harm, initial encounter (principal); E83.51 Hypocalcemia; I50.32 Chronic diastolic (congestive) heart failure; E87.8 Other disorders of electrolyte and fluid balance, not elsewhere classified; I11.0 Hypertensive heart disease with heart failure; F31.30 Bipolar disorder, current episode depressed, mild or moderate severity, unspecified; R73.9 Hyperglycemia, unspecified; F41.1 Generalized anxiety disorder; K21.9 Gastro-esophageal reflux disease without esophagitis; E78.5 Hyperlipidemia, unspecified; R25.1 Tremor, unspecified; F17.210 Nicotine dependence, cigarettes, uncomplicated; F10.229 Alcohol dependence with intoxication, unspecified; Z71.6 Tobacco abuse counseling; Z88.0 Allergy status to penicillin; Z88.8 Allergy status to other drugs, medicaments and biological substances; Z82.3 Family history of stroke; Z82.49 Family history of ischemic heart disease and other diseases of the circulatory system; Z79.82 Long term (current) use of aspirin; Z79.899 Other long term (current) drug therapy; Y92.89 Other specified places as the place of occurrence of the external cause

== ENCOUNTER 2017-08-17 22:44 | Inpatient (IN) | payer OTHER ==
[~2017-08-17] VITALS: Ht 180.3 cm; Wt 112.0 kg
[2017-08-17 22:47] VITALS: BP 157/88
[2017-08-17 23:13] LABS: BASO # 0.1 10*3/uL (0.0-0.1); BASO % 0.7 % (0.0-1.0); EOS # 0.5 10*3/uL (0.0-0.4); EOS % 5.7 % (1.0-4.0); HEMOGLOBIN 14.1 g/dl (14.0-18.0); LYMPH % 33.6 % (27.0-41.0); MEAN CELL VOLUME 83.9 fl (80.0-94.0); MEAN CORPUSCULAR HGB 29.6 pg (27.0-31.0); MEAN CORPUSCULAR HGB CONC 35.3 g/dl (33.0-37.0); MEAN PLATELET VOLUME 10.3 fl (9.6-12.3); MONO # 0.6 10*3/uL (0.1-1.0); MONO % 6.9 % (3.0-9.0); NEUT # 4.6 10*3/uL (2.3-7.9); NEUT % 52.1 % (47.0-73.0); PLATELET COUNT AUTOMATED 236 10*3/uL (130-400); RED BLOOD COUNT 4.77 10*6/uL (4.50-5.90); RED CELL DISTRI WIDTH 12.5 % (0-14.5); WHITE BLOOD COUNT 8.9 10*3/uL (4.8-10.8)
[2017-08-17 23:28] LABS: ALBUMIN 4.1 gm/dl (3.1-4.5); ALKALINE PHOSPHATASE 92 U/L (45-117); BUN 13 mg/dl (7-24); CHLORIDE 109 mmol/L (98-107); CREATININE 0.96 mg/dL (0.70-1.30); POTASSIUM 3.6 mmol/L (3.5-5.1); SGOT/AST 28 IU/L (3-35); SGPT/ALT 59 U/L (12-78); SODIUM 141 mmol/L (136-145); TOTAL PROTEIN 7.2 gm/dL (6.4-8.2)
[2017-08-17 23:31] LABS: ACETAMINOPHEN (TYLENOL) < 2.0 ug/ml (10-30); ETHYL ALCOHOL < 3.0 mg/dl (<3)
[2017-08-18] VITALS (7 sets, daily range): BP systolic 122–174; BP diastolic 63–88
[2017-08-18] MEDS ORDERED: DOXEPIN25 MG PO (00:13)
[2017-08-18 00:16] LABS: BILIRUBIN NEGATIVE (NEGATIVE); BLOOD TRACE-INTACT (NEGATIVE); CLARITY CLEAR (CLEAR); COLOR YELLOW (YELLOW); GLUCOSE NEGATIVE (NEGATIVE); KETONE NEGATIVE (NEGATIVE); LEUKO ESTERASE NEGATIVE (NEGATIVE); NITRITE NEGATIVE (NEGATIVE); UROBILINOGEN 0.2 E.U./dl (0.2-1.0)
[2017-08-18 00:28] LABS: URINE AMPHETAMINES < 1000 (1000ng/ml); URINE BARBITURATES < 200 (200ng/ml); URINE BENZODIAZEPINES < 200 (200ng/ml); URINE CANNABINOIDS (THC) < 50 (50ng/ml); URINE COCAINE < 300 (300ng/ml); URINE METHADONE < 300 (300ng/ml); URINE OPIATES < 300 (300ng/ml)
[2017-08-18 00:29] LABS: RBC 0-2 rbc/hpf (0-2); WBC 0-2 wbc/hpf (0-5)
[2017-08-18 00:30] LABS: URINE PHENCYCLIDINE < 25 (25ng/ml)
[2017-08-19 00:04] VITALS: BP 96/54
[2017-08-19 08:00] VITALS: BP 114/61
[2017-08-19 12:00] VITALS: BP 110/52; BP 122/90
[2017-08-19 16:00] VITALS: BP 123/59
[2017-08-19 20:00] VITALS: BP 137/63
[2017-08-20] VITALS: BP 113/59; BP 118/70
[2017-08-20 07:06] LABS: BASO % 0.5 % (0.0-1.0); EOS # 0.5 10*3/uL (0.0-0.4); EOS % 6.3 % (1.0-4.0); HEMATOCRIT 41.7 % (42.0-52.0); HEMOGLOBIN 14.3 g/dl (14.0-18.0); LYMPH # 2.4 10*3/uL (1.3-4.4); LYMPH % 31.1 % (27.0-41.0); MEAN CELL VOLUME 83.9 fl (80.0-94.0); MEAN CORPUSCULAR HGB 28.8 pg (27.0-31.0); MEAN CORPUSCULAR HGB CONC 34.3 g/dl (33.0-37.0); MONO # 0.5 10*3/uL (0.1-1.0); MONO % 6.3 % (3.0-9.0); NEUT # 4.2 10*3/uL (2.3-7.9); NEUT % 55.5 % (47.0-73.0); PLATELET COUNT AUTOMATED 208 10*3/uL (130-400); RED BLOOD COUNT 4.97 10*6/uL (4.50-5.90); RED CELL DISTRI WIDTH 12.2 % (0-14.5); WHITE BLOOD COUNT 7.6 10*3/uL (4.8-10.8)
[2017-08-20 07:41] LABS: CREATININE 0.93 mg/dL (0.70-1.30)
[2017-08-20 08:00] VITALS: BP 98/50
[2017-08-20 08:12] VITALS: BP 92/54
[2017-09-23] MEDS ORDERED: ZOFRAN 4 MG ED2 TAB PO (09:18)
== END 2017-08-20 10:46 | disposition home or self-care (01) | DRG 897 ==
LOC: ED 22:44 → 4E 23:30 → EDHOLD 23:30 → 4E 23:52
PROVIDERS: Internal Medicine; Student in an Organized Health Care Education/Training Program
DX: F11.23 Opioid dependence with withdrawal (principal); F10.231 Alcohol dependence with withdrawal delirium; E87.8 Other disorders of electrolyte and fluid balance, not elsewhere classified; E66.01 Morbid (severe) obesity due to excess calories; E87.5 Hyperkalemia; I50.32 Chronic diastolic (congestive) heart failure; F31.30 Bipolar disorder, current episode depressed, mild or moderate severity, unspecified; I11.0 Hypertensive heart disease with heart failure; R73.9 Hyperglycemia, unspecified; F41.1 Generalized anxiety disorder; K21.9 Gastro-esophageal reflux disease without esophagitis; E78.5 Hyperlipidemia, unspecified; Z72.0 Tobacco use; Z71.6 Tobacco abuse counseling; Z88.0 Allergy status to penicillin; Z88.8 Allergy status to other drugs, medicaments and biological substances; Z79.899 Other long term (current) drug therapy; Z79.82 Long term (current) use of aspirin; Z90.89 Acquired absence of other organs; Z83.3 Family history of diabetes mellitus; Z82.3 Family history of stroke; Z82.49 Family history of ischemic heart disease and other diseases of the circulatory system; Z83.6 Family history of other diseases of the respiratory system; Z68.34 Body mass index [BMI] 34.0-34.9, adult

== ENCOUNTER 2017-11-19 20:59 | Emergency (ER) | payer OTHER ==
[~2017-11-19] VITALS: Ht 180.3 cm; Wt 111.1 kg
[2017-11-19 21:02] VITALS: BP 135/84
[2017-11-19] MEDS ORDERED: Motrin,Rufen800 MG PO (21:55)
[2017-11-19] MEDS ORDERED: CYCLOBENZAPRINE5 M3 PO (21:55)
== END 2017-11-19 22:09 | disposition home or self-care (01) ==
LOC: ED 20:59
DX: S46.911A Strain of unspecified muscle, fascia and tendon at shoulder and upper arm level, right arm, initial encounter (principal); F17.200 Nicotine dependence, unspecified, uncomplicated; K21.9 Gastro-esophageal reflux disease without esophagitis; I11.0 Hypertensive heart disease with heart failure; I50.9 Heart failure, unspecified; E78.00 Pure hypercholesterolemia, unspecified; Z87.442 Personal history of urinary calculi; Z98.890 Other specified postprocedural states; Z90.49 Acquired absence of other specified parts of digestive tract; Z88.6 Allergy status to analgesic agent; Z88.0 Allergy status to penicillin; Z88.8 Allergy status to other drugs, medicaments and biological substances; Z79.899 Other long term (current) drug therapy; W50.0XXA Accidental hit or strike by another person, initial encounter; Y93.61 Activity, american tackle football; Y92.89 Other specified places as the place of occurrence of the external cause; Y99.9 Unspecified external cause status

== ENCOUNTER 2017-12-17 22:34 | Emergency (ER) | payer OTHER ==
[~2017-12-17] VITALS: Ht 180.3 cm; Wt 106.6 kg
--- NOTE | ~2017-12-17 | EKG ---
[place], [place] ELECTROCARDIOGRAM REPORT NAME: JOYCE OLIVA JR UNIT #: [id number] ROOM: DOCTOR: EPIPHANY DRAFT REPORT BIRTHDATE: [birth year] [facility] Test Date: 2017-12-17 Test Time: 23:22:36 Pat Name: JOYCE OLIVA Department: Room: Gender: M Needle Control Cheniller: : 1980 Requested By: NGHIA RON Order Number: [id number] Reading MD: Ryan Santos MD Measurements Intervals [place] Rate: 84 P: 40 [place]: 164 QRS: 57 QRSD: 92 T: 37 QT: 375 QTc: 444 Interpretive Statements Sinus rhythm Electronically Signed On 12-18-2017 13:42:00 PDT by Ryan Santos MD CM:EKGRPT:ELECTROCARDIOGRAM REPORT [id number] 1342 NGHIA RON MD EPIPHANY DRAFT REPORT NGHIA RON MD
[~2017-12-17 22:34] MED LIST changes: +CYCLOBENZAPRINE5 M3 PO
[2017-12-17 22:35] VITALS: BP 164/100
[2017-12-17 23:35] LABS: ALBUMIN 4.3 gm/dl (3.1-4.5); ALKALINE PHOSPHATASE 88 U/L (45-117); BUN 16 mg/dl (7-24); CHLORIDE 106 mmol/L (98-107); CREATININE 0.93 mg/dL (0.70-1.30); LIPASE 175 U/L (73-393); POTASSIUM 3.3 mmol/L (3.5-5.1); SGOT/AST 22 IU/L (3-35); SGPT/ALT 35 U/L (12-78); SODIUM 140 mmol/L (136-145); TOTAL PROTEIN 7.6 gm/dL (6.4-8.2)
[2017-12-17 23:36] LABS: ETHYL ALCOHOL < 3.0 mg/dl (<3); TROPONIN I < 0.015 ng/ml (<0.045)
[2017-12-17 23:44] LABS: BASO # 0.1 10*3/uL (0.0-0.1); BASO % 0.5 % (0.0-1.0); EOS # 0.4 10*3/uL (0.0-0.4); EOS % 3.4 % (1.0-4.0); HEMATOCRIT 38.9 % (42.0-52.0); HEMOGLOBIN 13.9 g/dl (14.0-18.0); LYMPH # 2.7 10*3/uL (1.3-4.4); MEAN CELL VOLUME 82.9 fl (80.0-94.0); MEAN CORPUSCULAR HGB 29.6 pg (27.0-31.0); MEAN CORPUSCULAR HGB CONC 35.7 g/dl (33.0-37.0); MEAN PLATELET VOLUME 10.3 fl (9.6-12.3); MONO # 0.7 10*3/uL (0.1-1.0); MONO % 6.1 % (3.0-9.0); NEUT # 7.1 10*3/uL (2.3-7.9); NEUT % 64.3 % (47.0-73.0); PLATELET COUNT AUTOMATED 249 10*3/uL (130-400); RED BLOOD COUNT 4.69 10*6/uL (4.50-5.90); RED CELL DISTRI WIDTH 12.1 % (0-14.5)
[2017-12-18] MEDS ORDERED: ROBITUSSIN DM 105 ML PO (00:16)
== END 2017-12-18 00:25 | disposition home or self-care (01) ==
LOC: ED 22:34
PROVIDERS: Emergency Medicine Emergency Medical Services
DX: B34.9 Viral infection, unspecified (principal); E78.5 Hyperlipidemia, unspecified; K21.9 Gastro-esophageal reflux disease without esophagitis; E66.01 Morbid (severe) obesity due to excess calories; I11.0 Hypertensive heart disease with heart failure; I50.32 Chronic diastolic (congestive) heart failure; F17.200 Nicotine dependence, unspecified, uncomplicated; Z88.0 Allergy status to penicillin; Z88.8 Allergy status to other drugs, medicaments and biological substances; Z79.1 Long term (current) use of non-steroidal anti-inflammatories (NSAID); Z79.899 Other long term (current) drug therapy

== ENCOUNTER 2017-12-23 13:42 | Emergency (ER) | payer OTHER ==
[~2017-12-23] VITALS: Ht 180.3 cm; Wt 110.2 kg
--- NOTE | ~2017-12-23 | EKG ---
[place], [place] ELECTROCARDIOGRAM REPORT NAME: JOYCE OLIVA JR UNIT #: [id number] ROOM: DOCTOR: EPIPHANY DRAFT REPORT BIRTHDATE: [birth year] [facility] Test Date: 2017-12-23 Test Time: 16:23:33 Pat Name: JOYCE OLIVA Department: Room: Gender: Missing Persons Investigator: : 1980 Requested By: MIC BURNETT Order Number: [id number] Reading MD: Ryan Santos MD Measurements Intervals [place] Rate: 69 P: 37 SD: 183 QRS: 44 QRSD: 82 T: 45 QT: 386 QTc: 414 Interpretive Statements Sinus rhythm Probable left atrial enlargement ST elev, probable normal early repol pattern Compared to ECG 12/17/2017 23:22:36 No significant change Electronically Signed On 12-23-2017 13:35:08 PDT by Ryan Santos MD CM:EKGRPT:ELECTROCARDIOGRAM REPORT 1623 1335 MIC LENZ DRAFT REPORT MIC BURNETT M.D.
--- NOTE | ~2017-12-23 | EKG ---
[place], [place] ELECTROCARDIOGRAM REPORT NAME: JOYCE OLIVA JR UNIT #: [id number] ROOM: DOCTOR: EPIPHANY DRAFT REPORT BIRTHDATE: [birth year] [facility] Test Date: 2017-12-23 Test Time: 13:50:10 Pat Name: JOYCE OLIVA Department: Room: Gender: Upholstery Instructor: : 1980 Requested By: MIC BURNETT Order Number: [id number] Reading MD: Ryan Santos MD Measurements Intervals [place] Rate: 94 P: 44 [place]: 158 QRS: 47 QRSD: 107 T: 45 QT: 389 QTc: 487 Interpretive Statements Sinus rhythm Abnormal R-wave progression, early transition Possible early repolarization changes Compared to ECG 12/17/2017 23:22:36 No significant changes Electronically Signed On 12-23-2017 13:34:28 PDT by Ryan Santos MD CM:EKGRPT:ELECTROCARDIOGRAM REPORT 1350 1334 MIC LENZ DRAFT REPORT MIC BURNETT M.D.
[2017-12-23] MEDS ORDERED: DOXEPIN HCL50 MG PO (13:54)
[2017-12-23] MEDS ORDERED: HYDROXYZINE PAM25 M1 PO (13:54)
[2017-12-23] MEDS ORDERED: Lopressor25 MG PO (13:55)
[2017-12-23] MEDS ORDERED: LATUDA80 M1 PO (13:55)
[2017-12-23] MEDS ORDERED: OMEPRAZOLE40 MG PO (13:56)
[2017-12-23 14:25] LABS: BASO % 0.5 % (0.0-1.0); EOS # 0.4 10*3/uL (0.0-0.4); EOS % 4.9 % (1.0-4.0); HEMOGLOBIN 13.4 g/dl (14.0-18.0); LYMPH # 2.1 10*3/uL (1.3-4.4); LYMPH % 26.3 % (27.0-41.0); MEAN CELL VOLUME 83.2 fl (80.0-94.0); MEAN CORPUSCULAR HGB 29.3 pg (27.0-31.0); MEAN CORPUSCULAR HGB CONC 35.3 g/dl (33.0-37.0); MEAN PLATELET VOLUME 9.9 fl (9.6-12.3); MONO # 0.4 10*3/uL (0.1-1.0); MONO % 4.6 % (3.0-9.0); NEUT # 5.2 10*3/uL (2.3-7.9); NEUT % 63.3 % (47.0-73.0); PLATELET COUNT AUTOMATED 240 10*3/uL (130-400); RED BLOOD COUNT 4.57 10*6/uL (4.50-5.90); RED CELL DISTRI WIDTH 12.2 % (0-14.5); WHITE BLOOD COUNT 8.1 10*3/uL (4.8-10.8)
[2017-12-23 14:33] LABS: ACT PARTIAL THROMBO TIME 23.6 SECONDS (20.8-31.5)
[2017-12-23 14:43] LABS: ALKALINE PHOSPHATASE 93 U/L (45-117); BUN 10 mg/dl (7-24); CHLORIDE 107 mmol/L (98-107); CREATININE 0.92 mg/dL (0.70-1.30); POTASSIUM 3.5 mmol/L (3.5-5.1); SGOT/AST 25 IU/L (3-35); SGPT/ALT 37 U/L (12-78); SODIUM 142 mmol/L (136-145); TOTAL PROTEIN 7.4 gm/dL (6.4-8.2)
[2017-12-23 14:49] LABS: TROPONIN I < 0.015 ng/ml (<0.045)
[2017-12-23 19:02] VITALS: BP 128/72
== END 2017-12-23 19:04 ==
LOC: ED 13:42
PROVIDERS: Emergency Medicine
DX: R07.9 Chest pain, unspecified (principal); R61 Generalized hyperhidrosis; R06.02 Shortness of breath; R11.0 Nausea; K21.9 Gastro-esophageal reflux disease without esophagitis; E66.01 Morbid (severe) obesity due to excess calories; I11.0 Hypertensive heart disease with heart failure; I50.9 Heart failure, unspecified; Z88.0 Allergy status to penicillin; Z88.8 Allergy status to other drugs, medicaments and biological substances; Z79.899 Other long term (current) drug therapy

== ENCOUNTER 2018-02-04 10:58 | Inpatient (IN) | payer OTHER ==
[~2018-02-04] VITALS: Ht 154.9 cm; Wt 107.6 kg
[~2018-02-04 10:58] MED LIST changes: +DOXEPIN HCL50 MG PO; +HYDROXYZINE PAM25 M1 PO; +LATUDA80 M1 PO; +OMEPRAZOLE40 MG PO
[2018-02-04 11:02] VITALS: BP 173/80
[2018-02-04 11:19] LABS: BASO % 0.5 % (0.0-1.0); EOS # 0.5 10*3/uL (0.0-0.4); EOS % 5.7 % (1.0-4.0); HEMATOCRIT 40.3 % (42.0-52.0); HEMOGLOBIN 14.2 g/dl (14.0-18.0); LYMPH # 2.5 10*3/uL (1.3-4.4); LYMPH % 30.3 % (27.0-41.0); MEAN CELL VOLUME 82.9 fl (80.0-94.0); MEAN CORPUSCULAR HGB 29.2 pg (27.0-31.0); MEAN CORPUSCULAR HGB CONC 35.2 g/dl (33.0-37.0); MEAN PLATELET VOLUME 9.5 fl (9.6-12.3); MONO # 0.5 10*3/uL (0.1-1.0); MONO % 5.9 % (3.0-9.0); NEUT # 4.8 10*3/uL (2.3-7.9); NEUT % 57.1 % (47.0-73.0); PLATELET COUNT AUTOMATED 227 10*3/uL (130-400); RED BLOOD COUNT 4.86 10*6/uL (4.50-5.90); RED CELL DISTRI WIDTH 12.6 % (0-14.5); WHITE BLOOD COUNT 8.4 10*3/uL (4.8-10.8)
[2018-02-04 11:26] LABS: ACT PARTIAL THROMBO TIME 23.4 SECONDS (20.8-31.5); INTERNATIONAL NORM RATIO 0.9 (2.0-3.5)
[2018-02-04] MEDS ORDERED: NAPROXEN500 MG PO (11:27)
[2018-02-04 11:33] LABS: ALBUMIN 4.3 gm/dl (3.1-4.5); ALKALINE PHOSPHATASE 95 U/L (45-117); BUN 15 mg/dl (7-24); CHLORIDE 103 mmol/L (98-107); CREATININE 0.85 mg/dL (0.70-1.30); POTASSIUM 3.5 mmol/L (3.5-5.1); SGOT/AST 18 IU/L (3-35); SGPT/ALT 38 U/L (12-78); SODIUM 136 mmol/L (136-145); TOTAL PROTEIN 7.4 gm/dL (6.4-8.2)
[2018-02-04 11:35] LABS: ETHYL ALCOHOL < 3.0 mg/dl (<3)
[2018-02-04 11:37] LABS: BILIRUBIN NEGATIVE (NEGATIVE); BLOOD 1+ (NEGATIVE); CLARITY SL CLOUDY (CLEAR); COLOR YELLOW (YELLOW); GLUCOSE NEGATIVE (NEGATIVE); KETONE NEGATIVE (NEGATIVE); LEUKO ESTERASE NEGATIVE (NEGATIVE); NITRITE NEGATIVE (NEGATIVE); PH 5.5 (5.0-9.0); UROBILINOGEN 0.2 E.U./dl (0.2-1.0)
[2018-02-04 11:52] LABS: BACTERIA TRACE; MUCOUS 1+
[2018-02-04 11:53] LABS: URINE AMPHETAMINES < 1000 (1000ng/ml); URINE BARBITURATES < 200 (200ng/ml); URINE BENZODIAZEPINES < 200 (200ng/ml); URINE CANNABINOIDS (THC) < 50 (50ng/ml); URINE COCAINE < 300 (300ng/ml); URINE METHADONE < 300 (300ng/ml); URINE OPIATES < 300 (300ng/ml)
[2018-02-04 12:03] LABS: URINE PHENCYCLIDINE < 25 (25ng/ml)
[2018-02-04 13:21] VITALS: BP 150/83
[2018-02-04 13:59] VITALS: BP 147/71
[2018-02-04 16:00] VITALS: BP 148/89
[2018-02-04 20:00] VITALS: BP 136/67
[2018-02-05] VITALS: BP 133/76
[2018-02-05 08:00] VITALS: BP 122/64
[2018-02-05 12:00] VITALS: BP 124/73
[2018-02-05 16:00] VITALS: BP 118/68
[2018-02-05 20:00] VITALS: BP 126/64
[2018-02-06] VITALS: BP 147/64
[2018-02-06 09:02] VITALS: BP 126/72
[2018-02-06 12:00] VITALS: BP 109/56
[2018-02-06 16:00] VITALS: BP 131/73
[2018-02-06 20:00] VITALS: BP 121/70
[2018-02-07] VITALS: BP 137/75
[2018-02-07 08:00] VITALS: BP 102/63
[2018-02-07 12:00] VITALS: BP 116/66
[2018-02-07] MEDS ORDERED: NATURE'S BLEND F1 MG PO (12:19)
[2018-02-07] MEDS ORDERED: NATURE'S BLEND100 M2 PO (12:19)
== END 2018-02-07 13:08 | disposition home or self-care (01) | DRG 897 ==
LOC: ED 10:58 → 5E 12:58 → EDHOLD 12:58 → 5E 13:26
PROVIDERS: Emergency Medicine
DX: F10.20 Alcohol dependence, uncomplicated (principal); F31.30 Bipolar disorder, current episode depressed, mild or moderate severity, unspecified; I50.32 Chronic diastolic (congestive) heart failure; Z68.42 Body mass index [BMI] 45.0-49.9, adult; F41.1 Generalized anxiety disorder; K21.9 Gastro-esophageal reflux disease without esophagitis; E78.5 Hyperlipidemia, unspecified; E66.01 Morbid (severe) obesity due to excess calories; E87.8 Other disorders of electrolyte and fluid balance, not elsewhere classified; R73.9 Hyperglycemia, unspecified; I11.0 Hypertensive heart disease with heart failure; Z88.0 Allergy status to penicillin; Z83.3 Family history of diabetes mellitus; Z71.6 Tobacco abuse counseling; Z82.49 Family history of ischemic heart disease and other diseases of the circulatory system; Z82.3 Family history of stroke; Z82.5 Family history of asthma and other chronic lower respiratory diseases; Z88.8 Allergy status to other drugs, medicaments and biological substances; Z79.899 Other long term (current) drug therapy

== ENCOUNTER 2018-04-26 17:14 | Emergency (ER) | payer OTHER ==
[~2018-04-26] VITALS: Ht 180.3 cm; Wt 111.6 kg
--- NOTE | ~2018-04-26 | EKG ---
[place], [place] ELECTROCARDIOGRAM REPORT NAME: JOYCE OLIVA JR UNIT #: [id number] ROOM: DOCTOR: EPIPHANY DRAFT REPORT BIRTHDATE: [birth year] [facility] Test Date: 2018-04-26 Test Time: 17:36:25 Pat Name: JOYCE OLIVA Department: Room: Gender: M Deep Tissue Massage Therapist: Yuko Nino : 1980 Requested By: KATH BOLDEN Order Number: [id number] Reading MD: Brandon Oro MD Measurements Intervals [place] Rate: 109 P: 37 [place]: 150 QRS: 52 QRSD: 93 T: 38 QT: 340 QTc: 458 Interpretive Statements Sinus tachycardia Baseline wander in lead(s) V2 Compared to ECG 12/23/2017 16:23:33 Sinus rhythm no longer present ST (T wave) deviation no longer present Electronically Signed On 04-27-2018 13:53:06 PST by Brandon Oro MD CM:EKGRPT:ELECTROCARDIOGRAM REPORT 1736 1353 KATH LENZ DRAFT REPORT KATH BOLDEN MD
[~2018-04-26 17:14] MED LIST changes: +NAPROXEN500 MG PO; +NATURE'S BLEND100 M2 PO
[2018-04-26 17:16] VITALS: BP 172/99
[2018-04-26 17:41] LABS: BILIRUBIN NEGATIVE (NEGATIVE); BLOOD TRACE-INTACT (NEGATIVE); CLARITY CLEAR (CLEAR); COLOR YELLOW (YELLOW); GLUCOSE NEGATIVE (NEGATIVE); KETONE NEGATIVE (NEGATIVE); LEUKO ESTERASE NEGATIVE (NEGATIVE); NITRITE NEGATIVE (NEGATIVE); PH 7.5 (5.0-9.0); UROBILINOGEN 0.2 E.U./dl (0.2-1.0)
[2018-04-26 17:48] LABS: BACTERIA 1+; MUCOUS 1+
[2018-04-26 17:49] LABS: URINE AMPHETAMINES < 1000 (1000ng/ml); URINE BARBITURATES < 200 (200ng/ml); URINE BENZODIAZEPINES < 200 (200ng/ml); URINE CANNABINOIDS (THC) < 50 (50ng/ml); URINE COCAINE < 300 (300ng/ml); URINE METHADONE < 300 (300ng/ml); URINE OPIATES < 300 (300ng/ml)
[2018-04-26 17:53] LABS: URINE PHENCYCLIDINE < 25 (25ng/ml)
[2018-04-26 18:06] LABS: BASO % 0.5 % (0.0-1.0); EOS # 0.5 10*3/uL (0.0-0.4); EOS % 6.8 % (1.0-4.0); HEMATOCRIT 44.4 % (42.0-52.0); HEMOGLOBIN 15.7 g/dl (14.0-18.0); LYMPH # 2.7 10*3/uL (1.3-4.4); LYMPH % 35.3 % (27.0-41.0); MEAN CELL VOLUME 83.3 fl (80.0-94.0); MEAN CORPUSCULAR HGB 29.5 pg (27.0-31.0); MEAN CORPUSCULAR HGB CONC 35.4 g/dl (33.0-37.0); MEAN PLATELET VOLUME 10.6 fl (9.6-12.3); MONO # 0.5 10*3/uL (0.1-1.0); MONO % 6.2 % (3.0-9.0); NEUT % 50.9 % (47.0-73.0); PLATELET COUNT AUTOMATED 267 10*3/uL (130-400); RED BLOOD COUNT 5.33 10*6/uL (4.50-5.90); RED CELL DISTRI WIDTH 12.2 % (0-14.5); WHITE BLOOD COUNT 7.8 10*3/uL (4.8-10.8)
[2018-04-26 18:16] LABS: ACT PARTIAL THROMBO TIME 23.1 SECONDS (20.8-31.5); INTERNATIONAL NORM RATIO 0.9 (2.0-3.5)
[2018-04-26 18:28] LABS: ALBUMIN 4.2 gm/dl (3.1-4.5); ALKALINE PHOSPHATASE 92 U/L (45-117); BUN 16 mg/dl (7-24); CHLORIDE 103 mmol/L (98-107); CREATININE 1.32 mg/dL (0.70-1.30); POTASSIUM 3.9 mmol/L (3.5-5.1); SGOT/AST 14 IU/L (3-35); SGPT/ALT 37 U/L (12-78); SODIUM 138 mmol/L (136-145); TOTAL PROTEIN 7.3 gm/dL (6.4-8.2)
[2018-04-26 18:36] LABS: TROPONIN I < 0.015 ng/ml (<0.045)
[2018-06-07] MEDS ORDERED: WELLBUTRIN SR150 MG PO (13:26)
== END 2018-04-26 19:40 | disposition home or self-care (01) ==
LOC: ED 17:14
PROVIDERS: Emergency Medicine
DX: R31.9 Hematuria, unspecified (principal); R10.2 Pelvic and perineal pain; R74.0 Nonspecific elevation of levels of transaminase and lactic acid dehydrogenase [LDH]; R00.0 Tachycardia, unspecified; I11.0 Hypertensive heart disease with heart failure; I50.32 Chronic diastolic (congestive) heart failure; E78.5 Hyperlipidemia, unspecified; K21.9 Gastro-esophageal reflux disease without esophagitis; E66.01 Morbid (severe) obesity due to excess calories; F17.200 Nicotine dependence, unspecified, uncomplicated; Z88.8 Allergy status to other drugs, medicaments and biological substances; Z88.0 Allergy status to penicillin; Z88.5 Allergy status to narcotic agent; Z79.899 Other long term (current) drug therapy; Z87.442 Personal history of urinary calculi; Z68.42 Body mass index [BMI] 45.0-49.9, adult

== ENCOUNTER 2018-05-30 22:30 | Emergency (ER) | payer OTHER ==
[~2018-05-30] VITALS: Ht 180.3 cm; Wt 111.1 kg
[2018-05-30 22:32] VITALS: BP 153/94
[2018-06-07] MEDS ORDERED: WELLBUTRIN SR150 MG PO (13:26)
== END 2018-05-30 23:11 | disposition home or self-care (01) ==
LOC: ED 22:30
DX: K59.00 Constipation, unspecified (principal); K21.9 Gastro-esophageal reflux disease without esophagitis; I11.0 Hypertensive heart disease with heart failure; I50.32 Chronic diastolic (congestive) heart failure; E66.01 Morbid (severe) obesity due to excess calories; F17.220 Nicotine dependence, chewing tobacco, uncomplicated; Z88.8 Allergy status to other drugs, medicaments and biological substances; Z88.0 Allergy status to penicillin; Z88.6 Allergy status to analgesic agent; Z79.899 Other long term (current) drug therapy

== ENCOUNTER 2019-10-06 13:52 | Inpatient (IN) | payer OTHER ==
[~2019-10-06] VITALS: Ht 180.3 cm; Wt 114.5 kg
[~2019-10-06 13:52] MED LIST changes: +WELLBUTRIN SR150 MG PO
[2019-10-06 14:00] VITALS: BP 152/111
[2019-10-06 14:45] LABS: URINE AMPHETAMINES < 1000 (1000ng/ml); URINE BARBITURATES < 200 (200ng/ml); URINE BENZODIAZEPINES < 200 (200ng/ml); URINE CANNABINOIDS (THC) < 50 (50ng/ml); URINE COCAINE < 300 (300ng/ml); URINE METHADONE < 300 (300ng/ml); URINE OPIATES < 300 (300ng/ml)
[2019-10-06 14:49] LABS: URINE PHENCYCLIDINE < 25 (25ng/ml)
--- NOTE | 2019-10-06 15:20 | NUR ---
A 39, admitted to 5E, under the services of SUMMER Mcmahan DO with a diagnosis of ALCOHOL WITHDRAWAL. Chief complaint is SAME . Patient arrived via stretcher from ER. Monitor applied. Initial assessment completed. Vital signs taken and recorded. See assessment for past medical history, medications and allergies. Patient and/or family oriented to unit. ENDER CARRIZALES
[2019-10-06 15:21] LABS: BASO # 0.1 10*3/uL (0.0-0.1); BASO % 0.6 % (0.0-1.0); EOS # 0.5 10*3/uL (0.0-0.4); EOS % 4.8 % (1.0-4.0); HEMATOCRIT 39.8 % (42.0-52.0); LYMPH # 2.6 10*3/uL (1.3-4.4); LYMPH % 24.5 % (27.0-41.0); MEAN CELL VOLUME 80.9 fl (80.0-94.0); MEAN CORPUSCULAR HGB 28.5 pg (27.0-31.0); MEAN CORPUSCULAR HGB CONC 35.2 g/dl (33.0-37.0); MEAN PLATELET VOLUME 9.7 fl (9.6-12.3); MONO # 0.7 10*3/uL (0.1-1.0); MONO % 6.1 % (3.0-9.0); NEUT # 6.8 10*3/uL (2.3-7.9); NEUT % 63.3 % (47.0-73.0); PLATELET COUNT AUTOMATED 277 10*3/uL (130-400); RED BLOOD COUNT 4.92 10*6/uL (4.50-5.90); RED CELL DISTRI WIDTH 11.9 % (0-14.5); WHITE BLOOD COUNT 10.7 10*3/uL (4.8-10.8)
[2019-10-06 15:31] LABS: INTERNATIONAL NORM RATIO 0.9 (2.0-3.5)
[2019-10-06 15:37] LABS: ALBUMIN 3.9 gm/dl (3.1-4.5); ALKALINE PHOSPHATASE 109 U/L (45-117); BUN 12 mg/dl (7-24); CHLORIDE 104 mmol/L (98-107); CREATININE 0.87 mg/dL (0.70-1.30); POTASSIUM 3.9 mmol/L (3.5-5.1); SGOT/AST 26 IU/L (3-35); SGPT/ALT 69 U/L (12-78); SODIUM 137 mmol/L (136-145); TOTAL PROTEIN 7.6 gm/dL (6.4-8.2)
[2019-10-06 15:41] LABS: ETHYL ALCOHOL < 3.0 mg/dl (<3)
[2019-10-06 16:00] VITALS: BP 141/83
--- NOTE | 2019-10-06 17:05 | NUR ---
[place] staff to see patient. Patient meets [facility] Criteria. Patient wants follow up with [facility] for his aftercare pllan. Manjeet Yost M.A.[place].
--- NOTE | 2019-10-06 19:28 | NUR ---
24 HR chart check completed.
[2019-10-06 20:00] VITALS: BP 128/83
--- NOTE | 2019-10-06 20:00 | NUR ---
ALERT AND ORIENTED X3. C/O DIARRHEA. NO C/O N/V/PAIN/TREMORS.NO NEED FOR PRN MEDICATIONS AT THIS TIME.
[2019-10-06] MEDS ORDERED: MIRTAZAPINE45 MG PO (20:46)
[2019-10-06] MEDS ORDERED: ASPIRIN ADULT L81 M1 PO (20:47)
[2019-10-06] MEDS ORDERED: ATORVASTATIN CA80 M1 PO (20:48)
[2019-10-06] MEDS ORDERED: METOPROLOL25 MG PO (20:48)
[2019-10-07] VITALS: BP 133/73
--- NOTE | 2019-10-07 04:54 | NUR ---
AWAKEND FOR MEDICATION AND VS CHECK. NO ACUTE DISTRESS NOTED. NO TREMORS NO C/O.
[2019-10-07 04:56] VITALS: BP 135/82
[2019-10-07 08:00] VITALS: BP 118/70
[2019-10-07 12:00] VITALS: BP 133/73
[2019-10-07 16:00] VITALS: BP 118/70
[2019-10-07 20:00] VITALS: BP 110/62
--- NOTE | 2019-10-07 20:41 | NUR ---
REMERON GIVEN PER PT REQUEST TO HELP HIM SLEEP. WILL MONITOR. CALL LIGHT IN REACH. NO FURTHER COMPLAINTS VOICED AT THIS TIME.
--- NOTE | 2019-10-07 22:26 | NUR ---
REMERAON EFFECTIVE, PT SLEEPING/SNORING. NO SXS OF DISTRESS NOTED. RESPERATIONS EASY AND REGULAR ON ROOM AIR. CALL LIGHT IN REACH.
[2019-10-08] VITALS: BP 126/79
--- NOTE | 2019-10-08 02:53 | NUR ---
24HR CHART CHECK COMPLETED.
[2019-10-08 09:30] VITALS: BP 112/64
--- NOTE | 2019-10-08 09:49 | NUR ---
PT COMPLAIN OF WITHDRAWL SYMPTOMS, PRN GIVEN. WILL MONITOR FOR EFFECTIVENESS
--- NOTE | 2019-10-08 10:45 | NUR ---
PRN MEDICATIONS EFFECTIVE
[2019-10-08 12:00] VITALS: BP 123/65
--- NOTE | 2019-10-08 12:00 | NUR ---
PT RESTING, NO REQUESTS AT THIS TIME
--- NOTE | 2019-10-08 14:40 | NUR ---
PT SLEEPING, NO DISTRESS NOTED
[2019-10-08 16:00] VITALS: BP 121/69
--- NOTE | 2019-10-08 16:08 | NUR ---
PT COMPLAIN OF MUSCLE ACHES, ROBAXIN AND TYLENOL GIVEN. WILL MONITOR FOR EFFECTIVENESS
--- NOTE | 2019-10-08 17:00 | NUR ---
PRN MEDICATIONS EFFECTIVE
[2019-10-08 20:00] VITALS: BP 123/56
[2019-10-09] VITALS: BP 131/76
--- NOTE | 2019-10-09 02:00 | NUR ---
PATIENT GIVEN LIBRIUM WITH A SIP OF WATER. PT REMAINS NPO FOR ABDOMINAL US
[2019-10-09 06:21] LABS: BASO # 0.1 10*3/uL (0.0-0.1); BASO % 0.6 % (0.0-1.0); EOS # 0.5 10*3/uL (0.0-0.4); EOS % 6.6 % (1.0-4.0); HEMATOCRIT 39.6 % (42.0-52.0); LYMPH # 2.4 10*3/uL (1.3-4.4); LYMPH % 30.4 % (27.0-41.0); MEAN CELL VOLUME 81.3 fl (80.0-94.0); MEAN CORPUSCULAR HGB 28.7 pg (27.0-31.0); MEAN CORPUSCULAR HGB CONC 35.4 g/dl (33.0-37.0); MEAN PLATELET VOLUME 10.4 fl (9.6-12.3); MONO # 0.4 10*3/uL (0.1-1.0); MONO % 5.4 % (3.0-9.0); NEUT # 4.5 10*3/uL (2.3-7.9); NEUT % 55.9 % (47.0-73.0); PLATELET COUNT AUTOMATED 292 10*3/uL (130-400); RED BLOOD COUNT 4.87 10*6/uL (4.50-5.90); RED CELL DISTRI WIDTH 11.9 % (0-14.5)
[2019-10-09 06:33] LABS: CREATININE 0.77 mg/dL (0.70-1.30)
[2019-10-09 08:00] VITALS: BP 140/56
--- NOTE | 2019-10-09 08:35 | NUR ---
OFF FLOOR FOR ULTRASOUND
--- NOTE | 2019-10-09 09:09 | NUR ---
BACK TO ROOM FROM ULTRASOUND/
[2019-10-09] MEDS ORDERED: VITAMIN B-1100 M1 PO (11:12)
[2019-10-09] MEDS ORDERED: ATARAX,VISTARIL50 MG PO (11:12)
[2019-10-09] MEDS ORDERED: NICOTINE PATCH1 EAC2 TD (11:12)
[2019-10-09] MEDS ORDERED: NATURE'S BLEND F1 MG PO (11:12)
--- NOTE | 2019-10-09 12:28 | NUR ---
Discharge instructions reviewed with patient/family. Patient receptive and verbalizes understanding. Follow-up care arranged. Written instructions given to patient/family. RODOLFO RAM
== END 2019-10-09 12:28 | disposition home or self-care (01) | DRG 775 ==
LOC: ED 13:52 → EDHOLD 14:13 → 5E 14:13
PROVIDERS: Emergency Medicine; Internal Medicine; ADMIT Emergency Medicine
DX: F10.239 Alcohol dependence with withdrawal, unspecified (principal); G25.81 Restless legs syndrome; R00.0 Tachycardia, unspecified; F17.210 Nicotine dependence, cigarettes, uncomplicated; I50.32 Chronic diastolic (congestive) heart failure; F41.1 Generalized anxiety disorder; F31.30 Bipolar disorder, current episode depressed, mild or moderate severity, unspecified; E78.5 Hyperlipidemia, unspecified; R73.9 Hyperglycemia, unspecified; I11.0 Hypertensive heart disease with heart failure; Z71.6 Tobacco abuse counseling; Z88.6 Allergy status to analgesic agent; Z88.0 Allergy status to penicillin; Z88.8 Allergy status to other drugs, medicaments and biological substances; Z83.3 Family history of diabetes mellitus; Z82.3 Family history of stroke; Z83.6 Family history of other diseases of the respiratory system; Z79.899 Other long term (current) drug therapy

== ENCOUNTER 2020-01-08 19:25 | Emergency (ER) | payer OTHER ==
[~2020-01-08] VITALS: Ht 180.3 cm; Wt 136.1 kg
[~2020-01-08 19:25] MED LIST changes: +ASPIRIN ADULT L81 M1 PO; +ATARAX,VISTARIL50 MG PO; +ATORVASTATIN CA80 M1 PO; +MIRTAZAPINE45 MG PO; +NICOTINE PATCH1 EAC2 TD; +VITAMIN B-1100 M1 PO
[2020-01-08 19:29] VITALS: BP 159/95
== END 2020-01-08 21:22 | disposition left against medical advice (07) ==
LOC: ED 19:25
DX: R11.2 Nausea with vomiting, unspecified (principal); R19.7 Diarrhea, unspecified; Z53.21 Procedure and treatment not carried out due to patient leaving prior to being seen by health care provider

== ENCOUNTER 2020-03-01 11:05 | Emergency (ER) | payer OTHER ==
[~2020-03-01] VITALS: Ht 180.3 cm; Wt 152.0 kg
[2020-03-01 11:18] VITALS: BP 142/95
[2020-03-01 11:57] LABS: BASO # 0.1 10*3/uL (0.0-0.1); BASO % 0.7 % (0.0-1.0); EOS # 0.2 10*3/uL (0.0-0.4); EOS % 3.3 % (1.0-4.0); HEMATOCRIT 45.4 % (42.0-52.0); LYMPH # 2.2 10*3/uL (1.3-4.4); LYMPH % 32.6 % (27.0-41.0); MEAN CELL VOLUME 80.9 fl (80.0-94.0); MEAN CORPUSCULAR HGB CONC 34.6 g/dl (33.0-37.0); MEAN PLATELET VOLUME 10.2 fl (9.6-12.3); MONO # 0.5 10*3/uL (0.1-1.0); NEUT # 3.7 10*3/uL (2.3-7.9); NEUT % 55.8 % (47.0-73.0); PLATELET COUNT AUTOMATED 276 10*3/uL (130-400); RED BLOOD COUNT 5.61 10*6/uL (4.50-5.90); RED CELL DISTRI WIDTH 12.9 % (0-14.5); WHITE BLOOD COUNT 6.7 10*3/uL (4.8-10.8)
[2020-03-01 11:58] LABS: BILIRUBIN Negative (Negative); BLOOD 1+ (Negative); CLARITY Clear (Clear); COLOR Yellow (Yellow); GLUCOSE Negative (Negative); KETONE Negative (Negative); LEUKO ESTERASE Negative (Negative); NITRITE Negative (Negative); UROBILINOGEN 0.2 E.U./dl (0.0-1.0)
[2020-03-01 12:08] LABS: MUCOUS TRACE
[2020-03-01 12:18] LABS: ALBUMIN 4.3 gm/dl (3.1-4.5); ALKALINE PHOSPHATASE 132 U/L (45-117); BUN 8 mg/dl (7-24); CHLORIDE 105 mmol/L (98-107); CREATININE 0.97 mg/dL (0.70-1.30); POTASSIUM 3.8 mmol/L (3.5-5.1); SGOT/AST 35 IU/L (3-35); SGPT/ALT 71 U/L (12-78); SODIUM 141 mmol/L (136-145); TOTAL PROTEIN 7.8 gm/dL (6.4-8.2)
== END 2020-03-01 13:56 | disposition home or self-care (01) ==
LOC: ED 11:05
PROVIDERS: Nurse Practitioner Family
DX: R51.9 Headache, unspecified (principal); R20.8 Other disturbances of skin sensation; E11.9 Type 2 diabetes mellitus without complications; Z88.8 Allergy status to other drugs, medicaments and biological substances; Z88.0 Allergy status to penicillin; Z88.6 Allergy status to analgesic agent; Z79.899 Other long term (current) drug therapy; Z79.82 Long term (current) use of aspirin; Z72.0 Tobacco use

== ENCOUNTER 2020-03-09 21:55 | Emergency (ER) | payer OTHER ==
[~2020-03-09] VITALS: Ht 180.3 cm; Wt 102.1 kg
[2020-03-09 22:17] VITALS: BP 143/91
== END 2020-03-09 23:05 | disposition left against medical advice (07) ==
LOC: ED 21:55
DX: F10.10 Alcohol abuse, uncomplicated (principal); Z88.0 Allergy status to penicillin; Z88.6 Allergy status to analgesic agent; Z88.8 Allergy status to other drugs, medicaments and biological substances; Z79.899 Other long term (current) drug therapy; Z79.82 Long term (current) use of aspirin; Z72.0 Tobacco use; Y90.9 Presence of alcohol in blood, level not specified

== ENCOUNTER 2020-03-11 11:53 | Inpatient (IN) | payer OTHER ==
[~2020-03-11] VITALS: Ht 180.3 cm; Wt 147.4 kg
[2020-03-11 12:01] VITALS: BP 155/97
[2020-03-11 12:54] LABS: BASO % 0.4 % (0.0-1.0); EOS # 0.1 10*3/uL (0.0-0.4); EOS % 1.5 % (1.0-4.0); HEMATOCRIT 40.8 % (42.0-52.0); LYMPH # 1.6 10*3/uL (1.3-4.4); LYMPH % 21.9 % (27.0-41.0); MEAN CELL VOLUME 81.3 fl (80.0-94.0); MEAN CORPUSCULAR HGB 27.9 pg (27.0-31.0); MEAN CORPUSCULAR HGB CONC 34.3 g/dl (33.0-37.0); MEAN PLATELET VOLUME 10.2 fl (9.6-12.3); MONO # 0.4 10*3/uL (0.1-1.0); MONO % 5.1 % (3.0-9.0); NEUT # 5.2 10*3/uL (2.3-7.9); NEUT % 70.8 % (47.0-73.0); PLATELET COUNT AUTOMATED 245 10*3/uL (130-400); RED BLOOD COUNT 5.02 10*6/uL (4.50-5.90); RED CELL DISTRI WIDTH 12.8 % (0-14.5); WHITE BLOOD COUNT 7.3 10*3/uL (4.8-10.8)
[2020-03-11 13:00] LABS: BILIRUBIN Negative (Negative); BLOOD Trace-Lysed (Negative); CLARITY Clear (Clear); COLOR Yellow (Yellow); GLUCOSE Negative (Negative); KETONE Negative (Negative); LEUKO ESTERASE Negative (Negative); NITRITE Negative (Negative); PH 5.5 (4.5-8.0); SPECIFIC GRAVITY <= 1.005 (1.001-1.030); UROBILINOGEN 0.2 E.U./dl (0.0-1.0)
[2020-03-11 13:01] LABS: URINE AMPHETAMINES < 1000 (1000ng/ml); URINE BARBITURATES < 200 (200ng/ml); URINE BENZODIAZEPINES < 200 (200ng/ml); URINE CANNABINOIDS (THC) < 50 (50ng/ml); URINE COCAINE < 300 (300ng/ml); URINE METHADONE < 300 (300ng/ml); URINE OPIATES < 300 (300ng/ml)
[2020-03-11 13:10] LABS: URINE PHENCYCLIDINE < 25 (25ng/ml)
[2020-03-11 13:11] LABS: ALBUMIN 4.2 gm/dl (3.1-4.5); ALKALINE PHOSPHATASE 106 U/L (45-117); BUN 13 mg/dl (7-24); CHLORIDE 106 mmol/L (98-107); CREATININE 0.82 mg/dL (0.70-1.30); LIPASE 94 U/L (73-393); POTASSIUM 3.3 mmol/L (3.5-5.1); SGOT/AST 35 IU/L (3-35); SGPT/ALT 56 U/L (12-78); SODIUM 137 mmol/L (136-145); TOTAL PROTEIN 7.7 gm/dL (6.4-8.2)
[2020-03-11 13:14] LABS: ACETAMINOPHEN (TYLENOL) < 5.0 ug/ml (10-30); ETHYL ALCOHOL < 3.0 mg/dl (<3)
[2020-03-11 15:29] VITALS: BP 148/91
[2020-03-11 17:57] VITALS: BP 132/97
== END 2020-03-11 21:09 | disposition left against medical advice (07) | DRG 770 ==
LOC: ED 11:53 → EDHOLD 13:27
PROVIDERS: Physician Assistant; ADMIT Internal Medicine; ATTEND Internal Medicine
DX: F10.239 Alcohol dependence with withdrawal, unspecified (principal); K21.9 Gastro-esophageal reflux disease without esophagitis; I50.32 Chronic diastolic (congestive) heart failure; F31.30 Bipolar disorder, current episode depressed, mild or moderate severity, unspecified; E11.65 Type 2 diabetes mellitus with hyperglycemia; F17.210 Nicotine dependence, cigarettes, uncomplicated; Z53.29 Procedure and treatment not carried out because of patient's decision for other reasons; E78.5 Hyperlipidemia, unspecified; I11.0 Hypertensive heart disease with heart failure; G25.81 Restless legs syndrome; Z88.5 Allergy status to narcotic agent; Z88.0 Allergy status to penicillin; Z88.8 Allergy status to other drugs, medicaments and biological substances; Z79.899 Other long term (current) drug therapy; Z82.49 Family history of ischemic heart disease and other diseases of the circulatory system; Z82.3 Family history of stroke; Z83.3 Family history of diabetes mellitus; Z82.5 Family history of asthma and other chronic lower respiratory diseases; Z79.82 Long term (current) use of aspirin

== ENCOUNTER 2020-05-06 05:29 | Emergency (ER) | payer OTHER ==
[~2020-05-06] VITALS: Ht 180.3 cm; Wt 109.8 kg
[2020-05-06] MEDS ORDERED: GLIPIZIDE5 M1 PO (05:47)
[2020-05-06] MEDS ORDERED: GOOD NEIGHBOR PH2 M1 PO (05:49)
[2020-05-06] MEDS ORDERED: NALTREXONE HCL50 MG PO (05:49)
[2020-05-06] MEDS ORDERED: NICODERM CQ1 EAC2 T (05:49)
[2020-05-06] MEDS ORDERED: DOXEPIN HCL50 MG PO (05:50)
[2020-05-06] MEDS ORDERED: OMEPRAZOLE40 MG PO (05:50)
[2020-05-06 07:18] LABS: BASO % 0.4 % (0.0-1.0); EOS # 0.3 10*3/uL (0.0-0.4); EOS % 2.8 % (1.0-4.0); HEMATOCRIT 41.1 % (42.0-52.0); LYMPH # 2.3 10*3/uL (1.3-4.4); MEAN CELL VOLUME 81.1 fl (80.0-94.0); MEAN CORPUSCULAR HGB 28.8 pg (27.0-31.0); MEAN CORPUSCULAR HGB CONC 35.5 g/dl (33.0-37.0); MEAN PLATELET VOLUME 9.7 fl (9.6-12.3); MONO # 0.6 10*3/uL (0.1-1.0); MONO % 5.7 % (3.0-9.0); NEUT # 6.5 10*3/uL (2.3-7.9); NEUT % 66.7 % (47.0-73.0); PLATELET COUNT AUTOMATED 290 10*3/uL (130-400); RED BLOOD COUNT 5.07 10*6/uL (4.50-5.90); RED CELL DISTRI WIDTH 12.6 % (0-14.5); WHITE BLOOD COUNT 9.7 10*3/uL (4.8-10.8)
[2020-05-06 07:33] LABS: ALBUMIN 3.9 gm/dl (3.1-4.5); ALKALINE PHOSPHATASE 108 U/L (45-117); BUN 8 mg/dl (7-24); CHLORIDE 105 mmol/L (98-107); CREATININE 0.88 mg/dL (0.70-1.30); POTASSIUM 3.6 mmol/L (3.5-5.1); SGOT/AST 21 IU/L (3-35); SGPT/ALT 52 U/L (12-78); SODIUM 137 mmol/L (136-145); TOTAL PROTEIN 7.2 gm/dL (6.4-8.2)
[2020-05-06 07:39] VITALS: BP 125/82
[2020-05-06 07:46] LABS: TROPONIN I < 0.015 ng/ml (<0.045)
[2020-05-06 08:07] LABS: BILIRUBIN Negative (Negative); BLOOD Negative (Negative); CLARITY Clear (Clear); COLOR Yellow (Yellow); GLUCOSE Trace (Negative); KETONE Negative (Negative); LEUKO ESTERASE Negative (Negative); NITRITE Negative (Negative); PH 6.5 (4.5-8.0); SPECIFIC GRAVITY <= 1.005 (1.001-1.030); UROBILINOGEN 0.2 E.U./dl (0.0-1.0)
[2020-05-06 08:24] LABS: RBC 0-2 rbc/hpf (0-2)
[2020-05-06] MEDS ORDERED: NEURONTIN300 MG PO (10:00)
== END 2020-05-06 12:10 | disposition home or self-care (01) ==
LOC: ED 05:29
PROVIDERS: Emergency Medicine
DX: R73.9 Hyperglycemia, unspecified (principal); G62.9 Polyneuropathy, unspecified; R42 Dizziness and giddiness; F31.9 Bipolar disorder, unspecified; K21.9 Gastro-esophageal reflux disease without esophagitis; F41.9 Anxiety disorder, unspecified; I11.0 Hypertensive heart disease with heart failure; I50.9 Heart failure, unspecified; F90.9 Attention-deficit hyperactivity disorder, unspecified type; E78.00 Pure hypercholesterolemia, unspecified; Z88.8 Allergy status to other drugs, medicaments and biological substances; Z88.0 Allergy status to penicillin; Z88.5 Allergy status to narcotic agent; Z79.899 Other long term (current) drug therapy; Z79.82 Long term (current) use of aspirin; Z87.442 Personal history of urinary calculi; Z98.61 Coronary angioplasty status; Z90.89 Acquired absence of other organs; Z98.890 Other specified postprocedural states; Z87.891 Personal history of nicotine dependence

== ENCOUNTER 2020-06-02 19:09 | Emergency (ER) | payer OTHER ==
[~2020-06-02] VITALS: Ht 180.3 cm; Wt 106.6 kg
[~2020-06-02 19:09] MED LIST changes: +GLIPIZIDE5 M1 PO; +GOOD NEIGHBOR PH2 M1 PO; +NALTREXONE HCL50 MG PO; +NEURONTIN300 MG PO; +NICODERM CQ1 EAC2 T
[2020-06-02 19:50] LABS: BASO # 0.1 10*3/uL (0.0-0.1); BASO % 0.6 % (0.0-1.0); EOS # 0.5 10*3/uL (0.0-0.4); EOS % 5.7 % (1.0-4.0); HEMATOCRIT 43.1 % (42.0-52.0); LYMPH # 2.2 10*3/uL (1.3-4.4); LYMPH % 25.7 % (27.0-41.0); MEAN CELL VOLUME 84.5 fl (80.0-94.0); MEAN CORPUSCULAR HGB 28.8 pg (27.0-31.0); MEAN CORPUSCULAR HGB CONC 34.1 g/dl (33.0-37.0); MEAN PLATELET VOLUME 9.5 fl (9.6-12.3); MONO # 0.5 10*3/uL (0.1-1.0); MONO % 5.2 % (3.0-9.0); NEUT # 5.4 10*3/uL (2.3-7.9); NEUT % 62.5 % (47.0-73.0); PLATELET COUNT AUTOMATED 268 10*3/uL (130-400); RED CELL DISTRI WIDTH 12.3 % (0-14.5); WHITE BLOOD COUNT 8.6 10*3/uL (4.8-10.8)
[2020-06-02 20:04] VITALS: BP 120/74
[2020-06-02 20:05] LABS: ALBUMIN 4.1 gm/dl (3.1-4.5); ALKALINE PHOSPHATASE 95 U/L (45-117); BUN 13 mg/dl (7-24); CHLORIDE 107 mmol/L (98-107); CREATININE 1.16 mg/dL (0.70-1.30); SGOT/AST 22 IU/L (3-35); SGPT/ALT 58 U/L (12-78); SODIUM 139 mmol/L (136-145); TOTAL PROTEIN 7.4 gm/dL (6.4-8.2)
[2020-06-02 20:13] LABS: BILIRUBIN Negative (Negative); BLOOD 2+ (Negative); CLARITY Clear (Clear); COLOR Yellow (Yellow); GLUCOSE Negative (Negative); KETONE Negative (Negative); LEUKO ESTERASE Negative (Negative); NITRITE Negative (Negative); PH 5.5 (4.5-8.0); SPECIFIC GRAVITY 1.015 (1.001-1.030); UROBILINOGEN 0.2 E.U./dl (0.0-1.0)
[2020-06-02 20:21] LABS: BACTERIA TRACE; EPITHELIAL CELLS 0-2; RBC 21-30 rbc/hpf (0-2); WBC 0-2 wbc/hpf (0-5)
== END 2020-06-03 01:16 | disposition home or self-care (01) ==
LOC: ED 19:09
PROVIDERS: Emergency Medicine
DX: E11.65 Type 2 diabetes mellitus with hyperglycemia (principal); E11.40 Type 2 diabetes mellitus with diabetic neuropathy, unspecified; F31.9 Bipolar disorder, unspecified; E78.5 Hyperlipidemia, unspecified; K21.9 Gastro-esophageal reflux disease without esophagitis; I11.0 Hypertensive heart disease with heart failure; I50.32 Chronic diastolic (congestive) heart failure; F17.210 Nicotine dependence, cigarettes, uncomplicated; Z88.8 Allergy status to other drugs, medicaments and biological substances; Z88.0 Allergy status to penicillin; Z88.5 Allergy status to narcotic agent; Z79.899 Other long term (current) drug therapy; Z79.82 Long term (current) use of aspirin; Z87.442 Personal history of urinary calculi; Z98.61 Coronary angioplasty status; Z90.89 Acquired absence of other organs; Z98.890 Other specified postprocedural states

== ENCOUNTER 2020-06-23 18:17 | Emergency (ER) | payer OTHER ==
[2020-06-23 18:29] VITALS: BP 137/82
== END 2020-06-23 23:40 | disposition left against medical advice (07) ==
LOC: ED 18:17
DX: R07.89 Other chest pain (principal); Z53.21 Procedure and treatment not carried out due to patient leaving prior to being seen by health care provider

== ENCOUNTER 2020-07-09 05:09 | Emergency (ER) | payer OTHER ==
[2020-07-09 05:33] VITALS: BP 125/83
[2020-07-09] MEDS ORDERED: NAPROSYN500 MG PO (06:26)
[2020-07-09] MEDS ORDERED: METHOCARBAMOL750 M1 PO (06:26)
== END 2020-07-09 06:38 | disposition home or self-care (01) ==
LOC: ED 05:09
DX: S20.229A Contusion of unspecified back wall of thorax, initial encounter (principal); Z88.8 Allergy status to other drugs, medicaments and biological substances; Z88.0 Allergy status to penicillin; Z88.5 Allergy status to narcotic agent; Z79.899 Other long term (current) drug therapy; Z79.82 Long term (current) use of aspirin; Z95.818 Presence of other cardiac implants and grafts; Z98.890 Other specified postprocedural states; X58.XXXA Exposure to other specified factors, initial encounter; Y93.89 Activity, other specified; Y92.89 Other specified places as the place of occurrence of the external cause; Y99.8 Other external cause status

== ENCOUNTER 2020-08-27 21:43 | Emergency (ER) | payer OTHER ==
[~2020-08-27] VITALS: Ht 180.3 cm; Wt 106.6 kg
[~2020-08-27 21:43] MED LIST changes: +METHOCARBAMOL750 M1 PO
[2020-08-27 23:02] LABS: BASO # 0.1 10*3/uL (0.0-0.1); BASO % 0.5 % (0.0-1.0); EOS # 0.5 10*3/uL (0.0-0.4); EOS % 4.9 % (1.0-4.0); HEMATOCRIT 44.9 % (42.0-52.0); LYMPH % 28.6 % (27.0-41.0); MEAN CELL VOLUME 82.8 fl (80.0-94.0); MEAN CORPUSCULAR HGB 28.8 pg (27.0-31.0); MEAN CORPUSCULAR HGB CONC 34.7 g/dl (33.0-37.0); MEAN PLATELET VOLUME 9.9 fl (9.6-12.3); MONO # 0.6 10*3/uL (0.1-1.0); MONO % 5.7 % (3.0-9.0); NEUT # 6.2 10*3/uL (2.3-7.9); NEUT % 59.9 % (47.0-73.0); PLATELET COUNT AUTOMATED 290 10*3/uL (130-400); RED BLOOD COUNT 5.42 10*6/uL (4.50-5.90); RED CELL DISTRI WIDTH 12.5 % (0-14.5); WHITE BLOOD COUNT 10.4 10*3/uL (4.8-10.8)
[2020-08-27 23:16] LABS: ALKALINE PHOSPHATASE 96 U/L (45-117); BUN 10 mg/dl (7-24); CHLORIDE 103 mmol/L (98-107); CREATININE 0.94 mg/dL (0.70-1.30); POTASSIUM 4.3 mmol/L (3.5-5.1); SGOT/AST 31 IU/L (3-35); SGPT/ALT 45 U/L (12-78); SODIUM 138 mmol/L (136-145); TOTAL PROTEIN 7.6 gm/dL (6.4-8.2)
[2020-08-28 00:44] LABS: BILIRUBIN Negative (Negative); BLOOD Negative (Negative); CLARITY Clear (Clear); COLOR Yellow (Yellow); GLUCOSE Negative (Negative); KETONE Trace (Negative); LEUKO ESTERASE Negative (Negative); NITRITE Negative (Negative)
[2020-08-28 00:55] VITALS: BP 133/78
== END 2020-08-28 01:04 | disposition home or self-care (01) ==
LOC: ED 21:43
PROVIDERS: Emergency Medicine
DX: R11.10 Vomiting, unspecified (principal); R19.7 Diarrhea, unspecified; K21.9 Gastro-esophageal reflux disease without esophagitis; E78.5 Hyperlipidemia, unspecified; E11.9 Type 2 diabetes mellitus without complications; Z88.8 Allergy status to other drugs, medicaments and biological substances; Z88.0 Allergy status to penicillin; Z98.890 Other specified postprocedural states; Z79.899 Other long term (current) drug therapy

== ENCOUNTER 2020-09-01 21:09 | Emergency (ER) | payer OTHER ==
[~2020-09-01] VITALS: Wt 106.6 kg
[2020-09-01 21:16] VITALS: BP 152/95
[2020-09-01 21:46] LABS: BASO % 0.4 % (0.0-1.0); EOS # 0.4 10*3/uL (0.0-0.4); EOS % 3.7 % (1.0-4.0); HEMATOCRIT 44.7 % (42.0-52.0); LYMPH # 2.3 10*3/uL (1.3-4.4); LYMPH % 22.3 % (27.0-41.0); MEAN CELL VOLUME 82.9 fl (80.0-94.0); MEAN CORPUSCULAR HGB 28.6 pg (27.0-31.0); MEAN CORPUSCULAR HGB CONC 34.5 g/dl (33.0-37.0); MEAN PLATELET VOLUME 9.7 fl (9.6-12.3); MONO # 0.7 10*3/uL (0.1-1.0); MONO % 6.4 % (3.0-9.0); NEUT % 66.9 % (47.0-73.0); PLATELET COUNT AUTOMATED 250 10*3/uL (130-400); RED BLOOD COUNT 5.39 10*6/uL (4.50-5.90); RED CELL DISTRI WIDTH 12.4 % (0-14.5); WHITE BLOOD COUNT 10.4 10*3/uL (4.8-10.8)
[2020-09-01 22:08] LABS: ALBUMIN 4.2 gm/dl (3.1-4.5); ALKALINE PHOSPHATASE 93 U/L (45-117); BUN 11 mg/dl (7-24); CHLORIDE 103 mmol/L (98-107); CREATININE 0.85 mg/dL (0.70-1.30); POTASSIUM 3.6 mmol/L (3.5-5.1); SGOT/AST 19 IU/L (3-35); SGPT/ALT 38 U/L (12-78); SODIUM 135 mmol/L (136-145); TOTAL PROTEIN 7.3 gm/dL (6.4-8.2)
[2020-09-01] MEDS ORDERED: ZOFRAN4 MG PO (22:27)
== END 2020-09-01 22:32 | disposition home or self-care (01) ==
LOC: ED 21:09
PROVIDERS: Internal Medicine
DX: B34.9 Viral infection, unspecified (principal); Z20.822 Contact with and (suspected) exposure to COVID-19; R11.2 Nausea with vomiting, unspecified; H92.09 Otalgia, unspecified ear; F32.9 Major depressive disorder, single episode, unspecified; F17.200 Nicotine dependence, unspecified, uncomplicated; Z88.8 Allergy status to other drugs, medicaments and biological substances; Z88.0 Allergy status to penicillin; Z88.5 Allergy status to narcotic agent; Z79.899 Other long term (current) drug therapy; Z79.82 Long term (current) use of aspirin

== ENCOUNTER 2020-09-18 23:19 | Emergency (ER) | payer OTHER ==
[~2020-09-18] VITALS: Ht 180.3 cm; Wt 106.6 kg
[2020-09-18 23:40] LABS: BASO # 0.1 10*3/uL (0.0-0.1); BASO % 0.5 % (0.0-1.0); EOS # 0.4 10*3/uL (0.0-0.4); EOS % 3.4 % (1.0-4.0); HEMATOCRIT 42.6 % (42.0-52.0); LYMPH # 3.2 10*3/uL (1.3-4.4); LYMPH % 27.1 % (27.0-41.0); MEAN CELL VOLUME 82.2 fl (80.0-94.0); MEAN CORPUSCULAR HGB 28.6 pg (27.0-31.0); MEAN CORPUSCULAR HGB CONC 34.7 g/dl (33.0-37.0); MEAN PLATELET VOLUME 10.2 fl (9.6-12.3); MONO # 0.6 10*3/uL (0.1-1.0); MONO % 5.1 % (3.0-9.0); NEUT # 7.4 10*3/uL (2.3-7.9); NEUT % 63.7 % (47.0-73.0); PLATELET COUNT AUTOMATED 276 10*3/uL (130-400); RED BLOOD COUNT 5.18 10*6/uL (4.50-5.90); RED CELL DISTRI WIDTH 12.1 % (0-14.5); WHITE BLOOD COUNT 11.7 10*3/uL (4.8-10.8)
[2020-09-18 23:58] LABS: ALBUMIN 3.9 gm/dl (3.1-4.5); ALKALINE PHOSPHATASE 88 U/L (45-117); BUN 11 mg/dl (7-24); CHLORIDE 105 mmol/L (98-107); CREATININE 0.83 mg/dL (0.70-1.30); POTASSIUM 3.3 mmol/L (3.5-5.1); SGOT/AST 15 IU/L (3-35); SGPT/ALT 37 U/L (12-78); SODIUM 139 mmol/L (136-145); TOTAL PROTEIN 7.2 gm/dL (6.4-8.2); TROPONIN I < 0.015 ng/ml (<0.045)
== END 2020-09-19 00:35 | disposition home or self-care (01) ==
LOC: ED 23:19
PROVIDERS: Internal Medicine
DX: R07.89 Other chest pain (principal); E87.6 Hypokalemia; F17.200 Nicotine dependence, unspecified, uncomplicated; Z90.89 Acquired absence of other organs; Z98.890 Other specified postprocedural states; Z79.82 Long term (current) use of aspirin; Z79.899 Other long term (current) drug therapy; Z88.6 Allergy status to analgesic agent; Z88.0 Allergy status to penicillin; Z88.5 Allergy status to narcotic agent

== ENCOUNTER 2021-06-01 13:42 | Emergency (ER) | payer OTHER ==
[~2021-06-01] VITALS: Wt 99.8 kg
[2021-06-01 13:48] VITALS: BP 141/100
[2021-06-01 14:13] LABS: BASO % 0.3 % (0.0-1.0); EOS # 0.5 10*3/uL (0.0-0.4); EOS % 4.7 % (1.0-4.0); HEMATOCRIT 47.4 % (42.0-52.0); LYMPH # 2.8 10*3/uL (1.3-4.4); MEAN CELL VOLUME 82.1 fl (80.0-94.0); MEAN CORPUSCULAR HGB 29.3 pg (27.0-31.0); MEAN CORPUSCULAR HGB CONC 35.7 g/dl (33.0-37.0); MEAN PLATELET VOLUME 9.7 fl (9.6-12.3); MONO # 0.5 10*3/uL (0.1-1.0); MONO % 4.9 % (3.0-9.0); NEUT # 7.1 10*3/uL (2.3-7.9); NEUT % 64.5 % (47.0-73.0); PLATELET COUNT AUTOMATED 288 10*3/uL (130-400); RED BLOOD COUNT 5.77 10*6/uL (4.50-5.90); RED CELL DISTRI WIDTH 12.3 % (0-14.5); WHITE BLOOD COUNT 11.1 10*3/uL (4.8-10.8)
[2021-06-01 14:41] LABS: ALKALINE PHOSPHATASE 103 U/L (45-117); BUN 10 mg/dl (7-24); CHLORIDE 104 mmol/L (98-107); CREATININE 0.87 mg/dL (0.70-1.30); LIPASE 76 U/L (73-393); POTASSIUM 3.6 mmol/L (3.5-5.1); SGOT/AST 20 IU/L (3-35); SGPT/ALT 56 U/L (12-78); SODIUM 136 mmol/L (136-145); TOTAL PROTEIN 7.3 gm/dL (6.4-8.2)
[2021-06-01 15:01] LABS: BILIRUBIN Negative (Negative); BLOOD Negative (Negative); CLARITY Clear (Clear); COLOR Yellow (Yellow); GLUCOSE Negative (Negative); KETONE Negative (Negative); LEUKO ESTERASE Trace (Negative); NITRITE Negative (Negative); SPECIFIC GRAVITY <= 1.005 (1.001-1.030); UROBILINOGEN 0.2 E.U./dl (0.0-1.0)
[2021-06-01 15:13] LABS: BACTERIA TRACE; EPITHELIAL CELLS 0-2; RBC 0-2 rbc/hpf (0-2)
== END 2021-06-01 15:33 | disposition home or self-care (01) ==
LOC: ED 13:42
PROVIDERS: Emergency Medicine
DX: K52.9 Noninfective gastroenteritis and colitis, unspecified (principal); K21.9 Gastro-esophageal reflux disease without esophagitis; I50.9 Heart failure, unspecified; I11.0 Hypertensive heart disease with heart failure; F17.210 Nicotine dependence, cigarettes, uncomplicated; Z88.0 Allergy status to penicillin; Z88.8 Allergy status to other drugs, medicaments and biological substances; Z79.899 Other long term (current) drug therapy; Z79.82 Long term (current) use of aspirin; Z90.89 Acquired absence of other organs; Z98.890 Other specified postprocedural states

== ENCOUNTER 2021-07-08 18:12 | Emergency (ER) | payer OTHER ==
[2021-07-08 18:16] VITALS: BP 135/87
== END 2021-07-08 21:29 | disposition home or self-care (01) ==
LOC: ED 18:12
DX: S20.229A Contusion of unspecified back wall of thorax, initial encounter (principal); Z88.0 Allergy status to penicillin; Z88.8 Allergy status to other drugs, medicaments and biological substances; Z79.899 Other long term (current) drug therapy; Z79.82 Long term (current) use of aspirin; Z98.890 Other specified postprocedural states; Z90.89 Acquired absence of other organs; W18.39XA Other fall on same level, initial encounter; Y93.89 Activity, other specified; Y92.89 Other specified places as the place of occurrence of the external cause; Y99.8 Other external cause status

== ENCOUNTER 2021-08-11 11:59 | Emergency (ER) | payer MEDICAID | END 2021-08-11 13:25 | disposition left against medical advice (07) | LOC: ED 11:59 | DX: Z53.21 Procedure and treatment not carried out due to patient leaving prior to being seen by health care provider (principal) ==

== ENCOUNTER 2021-08-31 21:54 | Emergency (ER) | payer OTHER ==
[~2021-08-31] VITALS: Ht 180.3 cm; Wt 111.1 kg
[2021-08-31 22:06] VITALS: BP 185/100
== END 2021-08-31 23:45 | disposition home or self-care (01) ==
LOC: ED 21:54
DX: F32.9 Major depressive disorder, single episode, unspecified (principal); F41.9 Anxiety disorder, unspecified; Z88.0 Allergy status to penicillin; Z88.8 Allergy status to other drugs, medicaments and biological substances; Z79.899 Other long term (current) drug therapy; Z79.82 Long term (current) use of aspirin; Z90.89 Acquired absence of other organs; Z98.890 Other specified postprocedural states

== ENCOUNTER 2021-09-01 16:24 | Emergency (ER) | payer OTHER ==
[2021-09-01 16:59] LABS: BASO % 0.5 % (0.0-1.0); EOS # 0.2 10*3/uL (0.0-0.4); EOS % 2.9 % (1.0-4.0); HEMATOCRIT 41.1 % (42.0-52.0); LYMPH % 26.8 % (27.0-41.0); MEAN CELL VOLUME 80.6 fl (80.0-94.0); MEAN CORPUSCULAR HGB 29.2 pg (27.0-31.0); MEAN CORPUSCULAR HGB CONC 36.3 g/dl (33.0-37.0); MEAN PLATELET VOLUME 9.5 fl (9.6-12.3); MONO # 0.5 10*3/uL (0.1-1.0); MONO % 6.2 % (3.0-9.0); NEUT # 4.6 10*3/uL (2.3-7.9); NEUT % 63.1 % (47.0-73.0); PLATELET COUNT AUTOMATED 261 10*3/uL (130-400); RED CELL DISTRI WIDTH 11.8 % (0-14.5); WHITE BLOOD COUNT 7.3 10*3/uL (4.8-10.8)
[2021-09-01 17:09] LABS: ACT PARTIAL THROMBO TIME 25.6 SECONDS (20.0-32.1)
[2021-09-01 17:18] LABS: ALKALINE PHOSPHATASE 86 U/L (45-117); BUN 14 mg/dl (7-24); CHLORIDE 108 mmol/L (98-107); POTASSIUM 3.7 mmol/L (3.5-5.1); SGOT/AST 26 IU/L (3-35); SGPT/ALT 54 U/L (12-78); SODIUM 137 mmol/L (136-145); TOTAL PROTEIN 7.1 gm/dL (6.4-8.2)
[2021-09-01 17:26] LABS: ETHYL ALCOHOL < 3.0 mg/dl (<3)
[2021-09-01 17:44] LABS: BILIRUBIN Negative (Negative); BLOOD Negative (Negative); CLARITY Clear (Clear); COLOR Yellow (Yellow); GLUCOSE Negative (Negative); KETONE Negative (Negative); LEUKO ESTERASE Negative (Negative); NITRITE Negative (Negative); PH 5.5 (4.5-8.0); SPECIFIC GRAVITY 1.025 (1.001-1.030); UROBILINOGEN 0.2 E.U./dl (0.0-1.0)
[2021-09-01 17:55] LABS: URINE AMPHETAMINES < 1000 (1000ng/ml); URINE BARBITURATES < 200 (200ng/ml); URINE BENZODIAZEPINES < 200 (200ng/ml); URINE CANNABINOIDS (THC) < 50 (50ng/ml); URINE COCAINE < 300 (300ng/ml); URINE METHADONE < 300 (300ng/ml); URINE OPIATES < 300 (300ng/ml)
[2021-09-01 18:00] LABS: URINE PHENCYCLIDINE < 25 (25ng/ml)
[2021-09-01 18:14] LABS: BACTERIA 1+
[2021-09-01 19:00] VITALS: BP 143/84
== END 2021-09-01 22:44 | disposition home or self-care (01) ==
LOC: ED 16:24
PROVIDERS: Emergency Medicine
DX: F31.9 Bipolar disorder, unspecified (principal); K21.9 Gastro-esophageal reflux disease without esophagitis; E11.9 Type 2 diabetes mellitus without complications; F17.210 Nicotine dependence, cigarettes, uncomplicated; I50.9 Heart failure, unspecified; I11.0 Hypertensive heart disease with heart failure; Z88.0 Allergy status to penicillin; Z88.8 Allergy status to other drugs, medicaments and biological substances; Z79.899 Other long term (current) drug therapy; Z90.89 Acquired absence of other organs

== ENCOUNTER 2021-10-29 13:11 | Emergency (ER) | payer OTHER ==
[~2021-10-29] VITALS: Wt 111.6 kg
[2021-10-29 13:15] VITALS: BP 135/85
== END 2021-10-29 14:33 | disposition left against medical advice (07) ==
LOC: ED 13:11
DX: Z00.8 Encounter for other general examination (principal); Z53.21 Procedure and treatment not carried out due to patient leaving prior to being seen by health care provider

== ENCOUNTER 2021-10-30 13:44 | Inpatient (IN) | payer OTHER ==
[~2021-10-30] VITALS: Ht 180.3 cm; Wt 106.7 kg
[2021-10-30 13:49] VITALS: BP 135/81
[2021-10-30 14:25] LABS: BASO # 0.1 10*3/uL (0.0-0.1); BASO % 0.6 % (0.0-1.0); EOS # 0.3 10*3/uL (0.0-0.4); EOS % 3.8 % (1.0-4.0); HEMATOCRIT 41.6 % (42.0-52.0); LYMPH # 2.2 10*3/uL (1.3-4.4); LYMPH % 26.1 % (27.0-41.0); MEAN CELL VOLUME 84.6 fl (80.0-94.0); MEAN CORPUSCULAR HGB 29.5 pg (27.0-31.0); MEAN CORPUSCULAR HGB CONC 34.9 g/dl (33.0-37.0); MEAN PLATELET VOLUME 9.9 fl (9.6-12.3); MONO # 0.4 10*3/uL (0.1-1.0); MONO % 5.3 % (3.0-9.0); NEUT # 5.3 10*3/uL (2.3-7.9); NEUT % 63.8 % (47.0-73.0); PLATELET COUNT AUTOMATED 245 10*3/uL (130-400); RED BLOOD COUNT 4.92 10*6/uL (4.50-5.90); RED CELL DISTRI WIDTH 12.5 % (0-14.5); WHITE BLOOD COUNT 8.2 10*3/uL (4.8-10.8)
[2021-10-30 14:44] LABS: ACETAMINOPHEN (TYLENOL) < 5.0 ug/ml (10-30); ALKALINE PHOSPHATASE 90 U/L (45-117); BUN 10 mg/dl (7-24); CHLORIDE 112 mmol/L (98-107); CREATININE 0.75 mg/dL (0.70-1.30); ETHYL ALCOHOL < 3.0 mg/dl (<3); SGOT/AST 26 IU/L (3-35); SGPT/ALT 54 U/L (12-78); SODIUM 142 mmol/L (136-145); TOTAL PROTEIN 6.9 gm/dL (6.4-8.2)
[2021-10-30 16:09] VITALS: BP 130/80
[2021-10-30 16:50] VITALS: BP 131/83
[2021-10-30 20:00] VITALS: BP 104/60
[2021-10-31] VITALS: BP 110/80
[2021-10-31 08:00] VITALS: BP 120/78
[2021-10-31 12:00] VITALS: BP 119/69
[2021-10-31 16:00] VITALS: BP 120/67
[2021-10-31 20:00] VITALS: BP 137/71
[2021-11-01] VITALS: BP 111/76
[2021-11-01 08:00] VITALS: BP 137/90
[2021-11-01] MEDS ORDERED: VRAYLAR4.5 MG PO (09:12)
[2021-11-01 12:00] VITALS: BP 126/70
[2021-11-01 16:00] VITALS: BP 125/71
[2021-11-01 20:00] VITALS: BP 140/85
[2021-11-02] VITALS: BP 138/86
[2021-11-02 08:00] VITALS: BP 120/59
[2021-11-02] MEDS ORDERED: NICODERM CQ1 EAC2 T ×2 (10:51)
[2021-11-02] MEDS ORDERED: GOOD NEIGHBOR PH2 M1 PO ×3 (10:51→10:54)
[2021-11-02] MEDS ORDERED: NICODERM CQ1 EAC2 TD (10:54)
[2021-11-02 12:00] VITALS: BP 118/69
== END 2021-11-02 11:47 | disposition home or self-care (01) | DRG 775 ==
LOC: ED 13:44 → 5E 15:23 → EDHOLD 15:23 → 5E 16:26
PROVIDERS: Physician Assistant; ADMIT Internal Medicine; ATTEND Internal Medicine
DX: F10.930 Alcohol use, unspecified with withdrawal, uncomplicated (principal); H60.503 Unspecified acute noninfective otitis externa, bilateral; H92.03 Otalgia, bilateral; K21.9 Gastro-esophageal reflux disease without esophagitis; F31.9 Bipolar disorder, unspecified; I25.10 Atherosclerotic heart disease of native coronary artery without angina pectoris; I50.32 Chronic diastolic (congestive) heart failure; E78.5 Hyperlipidemia, unspecified; F41.1 Generalized anxiety disorder; I11.0 Hypertensive heart disease with heart failure; E11.40 Type 2 diabetes mellitus with diabetic neuropathy, unspecified; G25.81 Restless legs syndrome; E11.65 Type 2 diabetes mellitus with hyperglycemia; F17.210 Nicotine dependence, cigarettes, uncomplicated; E87.8 Other disorders of electrolyte and fluid balance, not elsewhere classified; Z88.0 Allergy status to penicillin; Z88.8 Allergy status to other drugs, medicaments and biological substances; Z82.3 Family history of stroke; Z83.3 Family history of diabetes mellitus; Z82.49 Family history of ischemic heart disease and other diseases of the circulatory system; Z83.6 Family history of other diseases of the respiratory system; Z81.1 Family history of alcohol abuse and dependence; Z88.6 Allergy status to analgesic agent

== ENCOUNTER 2021-11-15 19:14 | Emergency (ER) | payer OTHER ==
[~2021-11-15 19:14] MED LIST changes: +NICODERM CQ1 EAC2 TD; +VRAYLAR4.5 MG PO
[2021-11-15 19:21] VITALS: BP 132/75
[2021-11-15 19:59] LABS: BASO % 0.5 % (0.0-1.0); EOS # 0.4 10*3/uL (0.0-0.4); EOS % 4.4 % (1.0-4.0); HEMATOCRIT 40.2 % (42.0-52.0); LYMPH # 2.8 10*3/uL (1.3-4.4); LYMPH % 33.4 % (27.0-41.0); MEAN CELL VOLUME 86.1 fl (80.0-94.0); MEAN CORPUSCULAR HGB 29.8 pg (27.0-31.0); MEAN CORPUSCULAR HGB CONC 34.6 g/dl (33.0-37.0); MEAN PLATELET VOLUME 10.3 fl (9.6-12.3); MONO # 0.5 10*3/uL (0.1-1.0); MONO % 5.4 % (3.0-9.0); NEUT # 4.7 10*3/uL (2.3-7.9); NEUT % 56.1 % (47.0-73.0); PLATELET COUNT AUTOMATED 266 10*3/uL (130-400); RED BLOOD COUNT 4.67 10*6/uL (4.50-5.90); RED CELL DISTRI WIDTH 12.6 % (0-14.5); WHITE BLOOD COUNT 8.3 10*3/uL (4.8-10.8)
[2021-11-15 20:18] LABS: ALKALINE PHOSPHATASE 87 U/L (45-117); BUN 7 mg/dl (7-24); CHLORIDE 107 mmol/L (98-107); POTASSIUM 3.8 mmol/L (3.5-5.1); SGOT/AST 22 IU/L (3-35); SGPT/ALT 53 U/L (12-78); SODIUM 141 mmol/L (136-145); TOTAL PROTEIN 6.5 gm/dL (6.4-8.2)
[2021-11-15 20:22] LABS: ACT PARTIAL THROMBO TIME 25.4 SECONDS (20.0-32.1)
== END 2021-11-15 23:03 | disposition home or self-care (01) ==
LOC: ED 19:14
PROVIDERS: Family Medicine
DX: R07.89 Other chest pain (principal); E78.5 Hyperlipidemia, unspecified; I50.9 Heart failure, unspecified; I11.0 Hypertensive heart disease with heart failure; Z88.0 Allergy status to penicillin; Z88.8 Allergy status to other drugs, medicaments and biological substances; Z79.899 Other long term (current) drug therapy; Z79.82 Long term (current) use of aspirin; Z90.89 Acquired absence of other organs; Z98.890 Other specified postprocedural states; Z87.891 Personal history of nicotine dependence

== ENCOUNTER → 2021-11-26 | Outpatient (CLI) | payer OTHER ==
[~2021-11-26] MED LIST changes: +ONDANSETRON4 MG SL
[2021-11-26 18:04] LABS: BASO % 0.4 % (0.0-1.0); EOS # 0.4 10*3/uL (0.0-0.4); EOS % 3.8 % (1.0-4.0); HEMATOCRIT 44.2 % (42.0-52.0); LYMPH # 2.5 10*3/uL (1.3-4.4); LYMPH % 22.8 % (27.0-41.0); MEAN CELL VOLUME 83.7 fl (80.0-94.0); MEAN CORPUSCULAR HGB 29.7 pg (27.0-31.0); MEAN CORPUSCULAR HGB CONC 35.5 g/dl (33.0-37.0); MEAN PLATELET VOLUME 10.2 fl (9.6-12.3); MONO # 0.6 10*3/uL (0.1-1.0); MONO % 5.6 % (3.0-9.0); NEUT # 7.3 10*3/uL (2.3-7.9); PLATELET COUNT AUTOMATED 280 10*3/uL (130-400); RED BLOOD COUNT 5.28 10*6/uL (4.50-5.90); RED CELL DISTRI WIDTH 12.5 % (0-14.5); WHITE BLOOD COUNT 10.9 10*3/uL (4.8-10.8)
[2021-11-26 18:25] LABS: ALKALINE PHOSPHATASE 100 U/L (45-117); BUN 10 mg/dl (7-24); CHLORIDE 103 mmol/L (98-107); CHOLESTEROL 158 mg/dL (<200); CREATININE 0.97 mg/dL (0.70-1.30); POTASSIUM 4.1 mmol/L (3.5-5.1); SGOT/AST 20 IU/L (3-35); SGPT/ALT 62 U/L (12-78); SODIUM 138 mmol/L (136-145); TOTAL PROTEIN 7.6 gm/dL (6.4-8.2); TRIGLYCERIDES 535 mg/dl (<150)
== END ==
LOC: LAB 17:47
PROVIDERS: ATTEND Nurse Practitioner Family
DX: E11.65 Type 2 diabetes mellitus with hyperglycemia (principal); I10 Essential (primary) hypertension

== ENCOUNTER 2021-11-27 03:51 | Emergency (ER) | payer OTHER ==
[~2021-11-27] VITALS: Wt 111.1 kg
[~2021-11-27 03:51] MED LIST changes: -ONDANSETRON4 MG SL
[2021-11-27 03:57] VITALS: BP 133/70
[2021-11-27 04:25] LABS: BASO # 0.1 10*3/uL (0.0-0.1); BASO % 0.4 % (0.0-1.0); EOS # 0.4 10*3/uL (0.0-0.4); EOS % 3.7 % (1.0-4.0); HEMATOCRIT 42.9 % (42.0-52.0); LYMPH # 3.5 10*3/uL (1.3-4.4); LYMPH % 30.5 % (27.0-41.0); MEAN CELL VOLUME 84.8 fl (80.0-94.0); MEAN CORPUSCULAR HGB 30.4 pg (27.0-31.0); MEAN CORPUSCULAR HGB CONC 35.9 g/dl (33.0-37.0); MEAN PLATELET VOLUME 10.3 fl (9.6-12.3); MONO # 0.7 10*3/uL (0.1-1.0); MONO % 6.1 % (3.0-9.0); NEUT # 6.7 10*3/uL (2.3-7.9); NEUT % 58.9 % (47.0-73.0); PLATELET COUNT AUTOMATED 270 10*3/uL (130-400); RED BLOOD COUNT 5.06 10*6/uL (4.50-5.90); RED CELL DISTRI WIDTH 12.5 % (0-14.5); WHITE BLOOD COUNT 11.3 10*3/uL (4.8-10.8)
[2021-11-27 04:45] LABS: ALKALINE PHOSPHATASE 106 U/L (45-117); BUN 10 mg/dl (7-24); CHLORIDE 101 mmol/L (98-107); CREATININE 0.93 mg/dL (0.70-1.30); LIPASE 169 U/L (73-393); POTASSIUM 4.1 mmol/L (3.5-5.1); SGOT/AST 29 IU/L (3-35); SODIUM 138 mmol/L (136-145)
[2021-11-27 04:51] LABS: SGPT/ALT 70 U/L (12-78)
[2021-11-27] MEDS ORDERED: ONDANSETRON4 MG SL (05:31)
== END 2021-11-27 05:55 | disposition home or self-care (01) ==
LOC: ED 03:51
PROVIDERS: Internal Medicine
DX: K52.9 Noninfective gastroenteritis and colitis, unspecified (principal); R73.9 Hyperglycemia, unspecified; K21.9 Gastro-esophageal reflux disease without esophagitis; I50.9 Heart failure, unspecified; I11.0 Hypertensive heart disease with heart failure; E78.00 Pure hypercholesterolemia, unspecified; Z88.0 Allergy status to penicillin; Z88.8 Allergy status to other drugs, medicaments and biological substances; Z79.899 Other long term (current) drug therapy; Z79.82 Long term (current) use of aspirin; Z90.89 Acquired absence of other organs; Z98.890 Other specified postprocedural states; Z87.891 Personal history of nicotine dependence; Z87.442 Personal history of urinary calculi

== ENCOUNTER 2021-12-07 18:15 | Emergency (ER) | payer OTHER ==
[~2021-12-07 18:15] MED LIST changes: +ONDANSETRON4 MG SL
[2021-12-11] MEDS ORDERED: TRULICITY0.75 MG/0. SC (21:26)
[2021-12-11] MEDS ORDERED: METOPROLOL TART50 M1 PO (21:26)
[2021-12-11] MEDS ORDERED: TRAZODONE50 MG PO (21:27)
== END 2021-12-07 21:47 | disposition left against medical advice (07) ==
LOC: ED 18:15
DX: R51.9 Headache, unspecified (principal); Z53.21 Procedure and treatment not carried out due to patient leaving prior to being seen by health care provider

== ENCOUNTER 2022-03-30 19:16 | Emergency (ER) | payer OTHER ==
[~2022-03-30 19:16] MED LIST changes: +METOPROLOL TART50 M1 PO; +TRAZODONE50 MG PO; +TRULICITY0.75 MG/0. SC
== END 2022-03-30 19:50 | disposition left against medical advice (07) ==
LOC: ED 19:16
DX: R11.10 Vomiting, unspecified (principal); Z53.21 Procedure and treatment not carried out due to patient leaving prior to being seen by health care provider

== ENCOUNTER 2022-04-20 15:11 | Inpatient (IN) | payer OTHER ==
[~2022-04-20] VITALS: Ht 180.3 cm; Wt 104.1 kg
[2022-04-20 15:27] VITALS: BP 144/89
[2022-04-20 16:38] LABS: BASO % 0.3 % (0.0-1.0); EOS # 0.2 10*3/uL (0.0-0.4); EOS % 1.4 % (1.0-4.0); MEAN CELL VOLUME 81.5 fl (80.0-94.0); MEAN CORPUSCULAR HGB 29.3 pg (27.0-31.0); MEAN CORPUSCULAR HGB CONC 35.9 g/dl (33.0-37.0); MEAN PLATELET VOLUME 9.9 fl (9.6-12.3); MONO # 0.6 10*3/uL (0.1-1.0); MONO % 5.2 % (3.0-9.0); NEUT # 7.9 10*3/uL (2.3-7.9); NEUT % 73.5 % (47.0-73.0); PLATELET COUNT AUTOMATED 244 10*3/uL (130-400); RED CELL DISTRI WIDTH 12.2 % (0-14.5); WHITE BLOOD COUNT 10.8 10*3/uL (4.8-10.8)
[2022-04-20 16:54] LABS: ALKALINE PHOSPHATASE 82 U/L (46-116); BUN 11 mg/dl (9-23); CHLORIDE 100 mmol/L (98-107); POTASSIUM 3.8 mmol/L (3.4-5.1); SGPT/ALT 59 U/L (10-49); TOTAL PROTEIN 7.3 gm/dL (6.0-8.0)
[2022-04-20 16:55] LABS: ETHYL ALCOHOL < 3.0 mg/dl (<3)
[2022-04-20] MEDS ORDERED: NALTREXONE HCL50 MG PO (17:07)
[2022-04-20] MEDS ORDERED: VRAYLAR6 MG PO (17:08)
[2022-04-20] MEDS ORDERED: CETIRIZINE HYDR10 MG PO (17:11)
[2022-04-20] MEDS ORDERED: GLIPIZIDE XL5 M1 PO (17:14)
[2022-04-20 17:42] LABS: BILIRUBIN Negative (Negative); BLOOD Negative (Negative); CLARITY Clear (Clear); COLOR Yellow (Yellow); GLUCOSE Negative (Negative); KETONE Negative (Negative); NITRITE Negative (Negative); PH 5.5 (4.5-8.0); UROBILINOGEN 0.2 E.U./dl (0.0-1.0)
[2022-04-20 17:50] LABS: URINE AMPHETAMINES Negative (1000ng/ml); URINE BARBITURATES Negative (200ng/ml); URINE BENZODIAZEPINES Negative (200ng/ml); URINE CANNABINOIDS (THC) Negative (50ng/ml); URINE COCAINE Negative (300ng/ml); URINE METHADONE Negative (300ng/ml); URINE OPIATES Negative (300ng/ml); URINE PHENCYCLIDINE Negative (25ng/ml)
[2022-04-20 17:52] LABS: BACTERIA 1+; LEUKO ESTERASE Trace (Negative); MUCOUS 1+
[2022-04-20 21:30] VITALS: BP 121/79
[2022-04-20 21:34] VITALS: BP 142/81
[2022-04-21] VITALS: BP 138/86
[2022-04-21 08:00] VITALS: BP 116/65
== END 2022-04-21 11:01 | disposition left against medical advice (07) | DRG 770 ==
LOC: ED 15:11 → EDHOLD 17:31 → 5E 17:31 → EDHOLD 18:04 → 5E 21:00
PROVIDERS: Emergency Medicine; ADMIT Emergency Medicine; ATTEND Emergency Medicine
DX: F10.130 Alcohol abuse with withdrawal, uncomplicated (principal); E78.5 Hyperlipidemia, unspecified; K21.9 Gastro-esophageal reflux disease without esophagitis; I11.0 Hypertensive heart disease with heart failure; F90.9 Attention-deficit hyperactivity disorder, unspecified type; I25.10 Atherosclerotic heart disease of native coronary artery without angina pectoris; E11.65 Type 2 diabetes mellitus with hyperglycemia; I50.32 Chronic diastolic (congestive) heart failure; F17.220 Nicotine dependence, chewing tobacco, uncomplicated; F41.1 Generalized anxiety disorder; F31.30 Bipolar disorder, current episode depressed, mild or moderate severity, unspecified; R82.71 Bacteriuria; R74.01 Elevation of levels of liver transaminase levels; Z71.6 Tobacco abuse counseling; Z83.3 Family history of diabetes mellitus; Z82.49 Family history of ischemic heart disease and other diseases of the circulatory system; Z82.3 Family history of stroke; Z88.8 Allergy status to other drugs, medicaments and biological substances; Z79.82 Long term (current) use of aspirin; Z79.899 Other long term (current) drug therapy; Z88.0 Allergy status to penicillin; Z88.5 Allergy status to narcotic agent; Z53.29 Procedure and treatment not carried out because of patient's decision for other reasons

== ENCOUNTER 2022-06-22 22:53 | Emergency (ER) | payer OTHER ==
[~2022-06-22] VITALS: Ht 177.8 cm; Wt 111.1 kg
[~2022-06-22 22:53] MED LIST changes: +CETIRIZINE HYDR10 MG PO; +GLIPIZIDE XL5 M1 PO; +VRAYLAR6 MG PO
[2022-06-22 23:01] VITALS: BP 146/97
== END 2022-06-22 23:05 | disposition left against medical advice (07) ==
LOC: ED 22:53
DX: F10.129 Alcohol abuse with intoxication, unspecified (principal); K21.9 Gastro-esophageal reflux disease without esophagitis; I11.0 Hypertensive heart disease with heart failure; I50.9 Heart failure, unspecified; E11.9 Type 2 diabetes mellitus without complications; F32.A Depression, unspecified; Z87.442 Personal history of urinary calculi; E78.00 Pure hypercholesterolemia, unspecified; Z88.8 Allergy status to other drugs, medicaments and biological substances; Z88.0 Allergy status to penicillin; Z88.5 Allergy status to narcotic agent; Z90.89 Acquired absence of other organs; Z98.890 Other specified postprocedural states; Z95.5 Presence of coronary angioplasty implant and graft; Z72.0 Tobacco use; Y90.0 Blood alcohol level of less than 20 mg/100 ml

== ENCOUNTER 2022-06-25 23:59 | Emergency (ER) | payer OTHER ==
[2022-06-26 00:09] VITALS: BP 140/94
[2022-06-26 00:41] LABS: BASO # 0.1 10*3/uL (0.0-0.1); BASO % 0.5 % (0.0-1.0); EOS # 0.5 10*3/uL (0.0-0.4); HEMATOCRIT 46.2 % (42.0-52.0); LYMPH # 3.6 10*3/uL (1.3-4.4); MEAN CELL VOLUME 82.5 fl (80.0-94.0); MEAN CORPUSCULAR HGB CONC 36.4 g/dl (33.0-37.0); MEAN PLATELET VOLUME 10.1 fl (9.6-12.3); MONO # 0.8 10*3/uL (0.1-1.0); MONO % 6.6 % (3.0-9.0); NEUT % 58.6 % (47.0-73.0); PLATELET COUNT AUTOMATED 306 10*3/uL (130-400); RED CELL DISTRI WIDTH 11.9 % (0-14.5); WHITE BLOOD COUNT 11.9 10*3/uL (4.8-10.8)
[2022-06-26 00:58] LABS: ALKALINE PHOSPHATASE 87 U/L (46-116); BUN 12 mg/dl (9-23); CHLORIDE 102 mmol/L (98-107); ETHYL ALCOHOL < 3.0 mg/dl (<3); POTASSIUM 3.7 mmol/L (3.4-5.1); SGPT/ALT 41 U/L (10-49); TOTAL PROTEIN 7.8 gm/dL (6.0-8.0)
== END 2022-06-26 01:19 | disposition home or self-care (01) ==
LOC: ED 23:59
PROVIDERS: Internal Medicine
DX: E11.65 Type 2 diabetes mellitus with hyperglycemia (principal); L29.9 Pruritus, unspecified; K21.9 Gastro-esophageal reflux disease without esophagitis; I11.0 Hypertensive heart disease with heart failure; I50.9 Heart failure, unspecified; E11.9 Type 2 diabetes mellitus without complications; E78.00 Pure hypercholesterolemia, unspecified; Z88.0 Allergy status to penicillin; Z88.8 Allergy status to other drugs, medicaments and biological substances; Z90.89 Acquired absence of other organs; Z98.890 Other specified postprocedural states; Z87.891 Personal history of nicotine dependence; Z87.442 Personal history of urinary calculi

== ENCOUNTER 2022-08-21 15:29 | Emergency (ER) | payer OTHER ==
[~2022-08-21] VITALS: Ht 180.3 cm; Wt 91.6 kg
[~2022-08-21 15:29] MED LIST changes: +[UNRECOGNIZED DRUG - OTHER] PO
[2022-08-21 15:42] VITALS: BP 138/81
[2022-08-21] MEDS ORDERED: NALTREXONE50 MG PO (16:23)
[2022-08-21] MEDS ORDERED: VRAYLAR6 MG PO (16:23)
== END 2022-08-21 16:31 | disposition home or self-care (01) ==
LOC: ED 15:29
DX: F32.A Depression, unspecified (principal); Z76.0 Encounter for issue of repeat prescription; F17.200 Nicotine dependence, unspecified, uncomplicated; Z88.8 Allergy status to other drugs, medicaments and biological substances; Z88.0 Allergy status to penicillin; Z88.5 Allergy status to narcotic agent; Z79.899 Other long term (current) drug therapy; Z79.82 Long term (current) use of aspirin; Z98.890 Other specified postprocedural states; Z90.89 Acquired absence of other organs

== ENCOUNTER 2023-04-28 11:33 | Emergency (ER) | payer OTHER ==
[~2023-04-28] VITALS: Ht 180.3 cm; Wt 136.1 kg
[~2023-04-28 11:33] MED LIST changes: +NALTREXONE50 MG PO
[2023-04-28 11:39] VITALS: BP 151/92
[2023-04-28] MEDS ORDERED: SODIUM CHLORIDE 0.9% 1,000 ML IV ONE (11:45)
[2023-04-28 12:06] LABS: BASO % 0.4 % (0.0-1.0); EOS # 0.4 10*3/uL (0.0-0.4); EOS % 4.9 % (1.0-4.0); HEMATOCRIT 45.7 % (42.0-52.0); LYMPH # 2.6 10*3/uL (1.3-4.4); LYMPH % 33.2 % (27.0-41.0); MEAN CELL VOLUME 83.7 fl (80.0-94.0); MEAN CORPUSCULAR HGB 29.1 pg (27.0-31.0); MEAN CORPUSCULAR HGB CONC 34.8 g/dl (33.0-37.0); MEAN PLATELET VOLUME 10.3 fl (9.6-12.3); MONO # 0.4 10*3/uL (0.1-1.0); MONO % 5.1 % (3.0-9.0); NEUT # 4.4 10*3/uL (2.3-7.9); PLATELET COUNT AUTOMATED 219 10*3/uL (130-400); RED BLOOD COUNT 5.46 10*6/uL (4.50-5.90); RED CELL DISTRI WIDTH 12.4 % (0-14.5); VENOUS PH 7.327 (7.37-7.45); WHITE BLOOD COUNT 7.8 10*3/uL (4.8-10.8)
[2023-04-28 12:30] LABS: ALKALINE PHOSPHATASE 82 U/L (46-116); BUN 13 mg/dl (9-23); CHLORIDE 103 mmol/L (98-107); POTASSIUM 4.1 mmol/L (3.4-5.1); SGPT/ALT 70 U/L (5-49); TOTAL PROTEIN 7.1 gm/dL (6.0-8.0)
[2023-04-28] MEDS ORDERED: Insulin Lispro, Recombinant 1 UNIT/0.01 ML UN SC ONE (12:40)
[2023-04-28] MEDS ORDERED: INSULIN LISPRO 1 UNIT/0.01 ML SQ ONE (12:45)
[2023-04-28 12:51] LABS: BILIRUBIN Negative (Negative); BLOOD Negative (Negative); CLARITY Clear (Clear); COLOR Yellow (Yellow); GLUCOSE Trace (Negative); KETONE Trace (Negative); LEUKO ESTERASE Trace (Negative); NITRITE Negative (Negative); PH 5.5 (4.5-8.0); SPECIFIC GRAVITY >= 1.030 (1.001-1.030)
[2023-04-28 13:01] LABS: FINE GRANULAR CAST 0-2; MUCOUS 3+
== END 2023-04-28 17:43 | disposition home or self-care (01) ==
LOC: ED 11:33
PROVIDERS: Physician Assistant Medical
DX: E11.65 Type 2 diabetes mellitus with hyperglycemia (principal); F32.A Depression, unspecified; F17.220 Nicotine dependence, chewing tobacco, uncomplicated; Z88.8 Allergy status to other drugs, medicaments and biological substances; Z88.0 Allergy status to penicillin; Z88.5 Allergy status to narcotic agent; Z79.899 Other long term (current) drug therapy; Z79.82 Long term (current) use of aspirin; Z87.442 Personal history of urinary calculi; Z98.890 Other specified postprocedural states; Z90.89 Acquired absence of other organs

== ENCOUNTER 2023-04-28 21:40 | Emergency (ER) | payer OTHER ==
[~2023-04-28] VITALS: Ht 180.3 cm
[2023-04-28] MEDS ORDERED: INSULIN REGULAR, HUMAN 1 UNIT/0.01 ML SC ONE (22:45)
[2023-04-28 22:54] VITALS: BP 142/95
[2023-04-28 23:23] LABS: BUN 13 mg/dl (9-23); CHLORIDE 101 mmol/L (98-107); POTASSIUM 3.7 mmol/L (3.4-5.1)
[2023-04-28] MEDS ORDERED: ACETAMINOPHEN 325 MG TAB PO ONE (23:40)
== END 2023-04-29 00:40 | disposition home or self-care (01) ==
LOC: ED 21:40
PROVIDERS: Internal Medicine
DX: E11.65 Type 2 diabetes mellitus with hyperglycemia (principal); H53.8 Other visual disturbances; R20.2 Paresthesia of skin; F32.A Depression, unspecified; F17.220 Nicotine dependence, chewing tobacco, uncomplicated; Z88.8 Allergy status to other drugs, medicaments and biological substances; Z88.0 Allergy status to penicillin; Z88.5 Allergy status to narcotic agent; Z79.899 Other long term (current) drug therapy; Z98.890 Other specified postprocedural states; Z90.89 Acquired absence of other organs

== ENCOUNTER 2023-06-21 18:59 | Emergency (ER) | payer OTHER ==
[~2023-06-21] VITALS: Ht 177.8 cm; Wt 108.9 kg
[2023-06-21 19:28] VITALS: BP 161/99
[2023-06-21 19:43] LABS: BASO # 0.1 10*3/uL (0.0-0.1); BASO % 0.7 % (0.0-1.0); EOS # 0.3 10*3/uL (0.0-0.4); EOS % 3.1 % (1.0-4.0); LYMPH % 34.3 % (27.0-41.0); MEAN CELL VOLUME 81.9 fl (80.0-94.0); MEAN CORPUSCULAR HGB CONC 35.4 g/dl (33.0-37.0); MEAN PLATELET VOLUME 10.5 fl (9.6-12.3); MONO # 0.5 10*3/uL (0.1-1.0); NEUT # 4.8 10*3/uL (2.3-7.9); NEUT % 55.6 % (47.0-73.0); PLATELET COUNT AUTOMATED 261 10*3/uL (130-400); RED BLOOD COUNT 5.86 10*6/uL (4.50-5.90); RED CELL DISTRI WIDTH 11.8 % (0-14.5); WHITE BLOOD COUNT 8.7 10*3/uL (4.8-10.8)
[2023-06-21 20:04] LABS: ALKALINE PHOSPHATASE 81 U/L (46-116); BUN 11 mg/dl (9-23); CHLORIDE 99 mmol/L (98-107); POTASSIUM 4.5 mmol/L (3.4-5.1); SGPT/ALT 53 U/L (5-49)
[2023-06-21 20:06] LABS: BILIRUBIN Negative (Negative); BLOOD Negative (Negative); CLARITY Clear (Clear); COLOR Yellow (Yellow); GLUCOSE 3+ (Negative); KETONE Trace (Negative); LEUKO ESTERASE Negative (Negative); NITRITE Negative (Negative); SPECIFIC GRAVITY >= 1.030 (1.001-1.030); UROBILINOGEN 0.2 E.U./dl (0.0-1.0)
[2023-06-21 20:17] LABS: BACTERIA TRACE
[2023-06-21] MEDS ORDERED: SODIUM CHLORIDE 0.9% 1,000 ML IV ONE (20:30)
[2023-06-21] MEDS ORDERED: INSULIN REGULAR, HUMAN 1 UNIT/0.01 ML IV ONE (20:30)
== END 2023-06-21 20:55 | disposition home or self-care (01) ==
LOC: ED 18:59
PROVIDERS: Internal Medicine
DX: E11.65 Type 2 diabetes mellitus with hyperglycemia (principal); K21.9 Gastro-esophageal reflux disease without esophagitis; I11.0 Hypertensive heart disease with heart failure; I50.9 Heart failure, unspecified; F32.A Depression, unspecified; F90.9 Attention-deficit hyperactivity disorder, unspecified type; Z87.442 Personal history of urinary calculi; E78.00 Pure hypercholesterolemia, unspecified; Z88.0 Allergy status to penicillin; Z88.8 Allergy status to other drugs, medicaments and biological substances; Z88.5 Allergy status to narcotic agent; Z95.5 Presence of coronary angioplasty implant and graft; Z90.89 Acquired absence of other organs; Z98.890 Other specified postprocedural states; F10.10 Alcohol abuse, uncomplicated; Z72.0 Tobacco use

== ENCOUNTER 2023-08-18 11:36 | Emergency (ER) | payer OTHER | END 2023-08-18 14:56 | disposition left against medical advice (07) | LOC: ED 11:36 ==

== ENCOUNTER 2023-09-10 18:50 | Emergency (ER) | payer OTHER ==
[~2023-09-10] VITALS: Ht 180.3 cm; Wt 135.6 kg
[2023-09-10 19:00] VITALS: BP 138/76
[2023-09-10] MEDS ORDERED: LEVEMIR100 UNIT/1 SC (19:16)
[2023-09-10] MEDS ORDERED: NALTREXONE50 MG PO (19:16)
[2023-09-10 19:57] LABS: BILIRUBIN Negative (Negative); BLOOD Negative (Negative); CLARITY Clear (Clear); COLOR Yellow (Yellow); GLUCOSE 3+ (Negative); KETONE Trace (Negative); NITRITE Negative (Negative); PH 6.5 (4.5-8.0); SPECIFIC GRAVITY 1.025 (1.001-1.030); UROBILINOGEN 0.2 E.U./dl (0.0-1.0)
[2023-09-10 20:00] LABS: BASO # 0.1 10*3/uL (0.0-0.1); BASO % 0.6 % (0.0-1.0); EOS # 0.4 10*3/uL (0.0-0.4); EOS % 4.6 % (1.0-4.0); HEMATOCRIT 43.4 % (42.0-52.0); LYMPH # 2.7 10*3/uL (1.3-4.4); LYMPH % 30.4 % (27.0-41.0); MEAN CORPUSCULAR HGB 29.1 pg (27.0-31.0); MEAN CORPUSCULAR HGB CONC 35.5 g/dl (33.0-37.0); MEAN PLATELET VOLUME 10.1 fl (9.6-12.3); MONO # 0.5 10*3/uL (0.1-1.0); MONO % 5.6 % (3.0-9.0); NEUT # 5.2 10*3/uL (2.3-7.9); NEUT % 58.3 % (47.0-73.0); PLATELET COUNT AUTOMATED 214 10*3/uL (130-400); RED BLOOD COUNT 5.29 10*6/uL (4.50-5.90); RED CELL DISTRI WIDTH 12.5 % (0-14.5); WHITE BLOOD COUNT 8.9 10*3/uL (4.8-10.8)
[2023-09-10 20:04] LABS: LEUKO ESTERASE Trace (Negative)
[2023-09-10 20:05] LABS: BACTERIA 1+; RBC 0-2 rbc/hpf (0-2)
[2023-09-10 20:11] LABS: ACT PARTIAL THROMBO TIME 25.1 SECONDS (20.0-32.1)
[2023-09-10 20:19] LABS: ALKALINE PHOSPHATASE 78 U/L (46-116); BUN 9 mg/dl (9-23); CHLORIDE 103 mmol/L (98-107); POTASSIUM 3.8 mmol/L (3.4-5.1); SGPT/ALT 47 U/L (5-49); TOTAL PROTEIN 6.6 gm/dL (6.0-8.0)
== END 2023-09-10 22:36 | disposition home or self-care (01) ==
LOC: ED 18:50
PROVIDERS: Internal Medicine
DX: R07.89 Other chest pain (principal); E78.5 Hyperlipidemia, unspecified; E11.9 Type 2 diabetes mellitus without complications; K21.9 Gastro-esophageal reflux disease without esophagitis; I11.0 Hypertensive heart disease with heart failure; I50.9 Heart failure, unspecified; E78.00 Pure hypercholesterolemia, unspecified; F90.9 Attention-deficit hyperactivity disorder, unspecified type; F10.10 Alcohol abuse, uncomplicated; Z87.442 Personal history of urinary calculi; Z72.0 Tobacco use; Z88.0 Allergy status to penicillin; Z88.5 Allergy status to narcotic agent; Z88.8 Allergy status to other drugs, medicaments and biological substances; Z95.5 Presence of coronary angioplasty implant and graft; Z90.89 Acquired absence of other organs; Z98.890 Other specified postprocedural states

== ENCOUNTER → 2023-10-01 | Outpatient (CLI) | payer OTHER ==
[~2023-10-01] MED LIST changes: +LEVEMIR100 UNIT/1 SC
[2023-10-01 08:33] LABS: ALKALINE PHOSPHATASE 80 U/L (46-116); BUN 17 mg/dl (9-23); CHLORIDE 103 mmol/L (98-107); CHOLESTEROL 143 mg/dL (<200); CPK 71 U/L (34-171); POTASSIUM 3.9 mmol/L (3.4-5.1); SGPT/ALT 48 U/L (5-49); TRIGLYCERIDES 577 mg/dl (<150)
[2023-10-01 08:43] LABS: HEMATOCRIT 43.5 % (42.0-52.0); MEAN CELL VOLUME 81.8 fl (80.0-94.0); MEAN CORPUSCULAR HGB 29.9 pg (27.0-31.0); MEAN CORPUSCULAR HGB CONC 36.6 g/dl (33.0-37.0); MEAN PLATELET VOLUME 10.6 fl (9.6-12.3); RED BLOOD COUNT 5.32 10*6/uL (4.50-5.90); RED CELL DISTRI WIDTH 12.7 % (0-14.5); WHITE BLOOD COUNT 7.1 10*3/uL (4.8-10.8)
[2023-10-01 09:32] LABS: VITAMIN D, 25-HYDROXY 39.8 ng/mL (30-100)
== END | disposition home or self-care (01) ==
LOC: LAB 07:32
PROVIDERS: ATTEND Family Medicine
DX: Z12.5 Encounter for screening for malignant neoplasm of prostate (principal); I10 Essential (primary) hypertension; E11.9 Type 2 diabetes mellitus without complications; E78.00 Pure hypercholesterolemia, unspecified; E55.9 Vitamin D deficiency, unspecified; R53.83 Other fatigue

== ENCOUNTER 2023-11-06 17:43 | Observation (INO) | payer OTHER ==
[~2023-11-06] VITALS: Ht 180.3 cm; Wt 111.1 kg
[2023-11-06 17:51] VITALS: BP 137/102
[2023-11-06] MEDS ORDERED: LAMOTRIGINE100 MG PO (17:51)
[2023-11-06] MEDS ORDERED: Ketorolac Tromethamine 15 MG/ML VIAL IV ONE (18:05)
[2023-11-06 18:18] LABS: BASO % 0.4 % (0.0-1.0); EOS # 0.2 10*3/uL (0.0-0.4); EOS % 1.9 % (1.0-4.0); HEMATOCRIT 43.8 % (42.0-52.0); LYMPH # 1.9 10*3/uL (1.3-4.4); LYMPH % 21.1 % (27.0-41.0); MEAN CORPUSCULAR HGB 29.2 pg (27.0-31.0); MEAN CORPUSCULAR HGB CONC 35.6 g/dl (33.0-37.0); MEAN PLATELET VOLUME 10.3 fl (9.6-12.3); MONO # 0.4 10*3/uL (0.1-1.0); MONO % 4.7 % (3.0-9.0); NEUT # 6.4 10*3/uL (2.3-7.9); NEUT % 71.5 % (47.0-73.0); PLATELET COUNT AUTOMATED 198 10*3/uL (130-400); RED BLOOD COUNT 5.34 10*6/uL (4.50-5.90); RED CELL DISTRI WIDTH 11.9 % (0-14.5); WHITE BLOOD COUNT 8.9 10*3/uL (4.8-10.8)
[2023-11-06 18:35] LABS: ALKALINE PHOSPHATASE 84 U/L (46-116); BUN 11 mg/dl (9-23); CHLORIDE 102 mmol/L (98-107); POTASSIUM 3.7 mmol/L (3.4-5.1); SGPT/ALT 54 U/L (5-49); TOTAL PROTEIN 6.8 gm/dL (6.0-8.0)
[2023-11-06] MEDS ORDERED: INSULIN REGULAR, HUMAN 1 UNIT/0.01 ML IV ONE (18:40)
[2023-11-06 18:42] LABS: ACT PARTIAL THROMBO TIME 25.9 SECONDS (20.0-32.1)
[2023-11-06] MEDS ORDERED: Magnesium Hydroxide 30 ML UDC PO PRN (20:40)
[2023-11-06] MEDS ORDERED: ACETAMINOPHEN 325 MG TAB PO PRN (20:40)
[2023-11-06] MEDS ORDERED: BISACODYL 10 MG SUPP R PRN (20:40)
[2023-11-06] MEDS ORDERED: ACETAMINOPHEN 650 MG SUPP R PRN (20:40)
[2023-11-06] MEDS ORDERED: BISACODYL 5 MG TAB PO PRN (20:40)
[2023-11-06 21:12] VITALS: BP 150/87
[2023-11-06] MEDS ORDERED: Metoprolol Tartrate 50 MG TAB PO SCH (22:25)
[2023-11-06] MEDS ORDERED: ASPIRIN, CHEWABLE 81 MG TAB PO ONE (22:25)
[2023-11-06] MEDS ORDERED: DEXTROSE 10 % IN WATER 250 ML IV PRN (23:30)
[2023-11-06 23:49] VITALS: BP 124/70
[2023-11-07] MEDS ORDERED: INSULIN LISPRO 1 UNIT/0.01 ML SQ SCH (07:30)
[2023-11-07] MEDS ORDERED: Enoxaparin Sodium 40 MG/0.4 ML SYR SC SCH (10:00)
[2023-11-07] MEDS ORDERED: ASPIRIN, CHEWABLE 81 MG TAB PO SCH (10:00)
== END 2023-11-07 00:36 | disposition left against medical advice (07) ==
LOC: ED 17:43 → EDHOLD 18:42
PROVIDERS: Emergency Medicine; ADMIT Student in an Organized Health Care Education/Training Program; ATTEND Student in an Organized Health Care Education/Training Program
DX: R07.89 Other chest pain (principal); I11.0 Hypertensive heart disease with heart failure; I50.32 Chronic diastolic (congestive) heart failure; E78.5 Hyperlipidemia, unspecified; K21.9 Gastro-esophageal reflux disease without esophagitis; F41.9 Anxiety disorder, unspecified; F31.9 Bipolar disorder, unspecified; I25.10 Atherosclerotic heart disease of native coronary artery without angina pectoris; F90.9 Attention-deficit hyperactivity disorder, unspecified type; F17.210 Nicotine dependence, cigarettes, uncomplicated; Z79.899 Other long term (current) drug therapy

== ENCOUNTER 2023-11-27 18:51 | Inpatient (IN) | payer OTHER ==
[~2023-11-27] VITALS: Ht 177.8 cm; Wt 106.6 kg
[~2023-11-27 18:51] MED LIST changes: +LAMOTRIGINE100 MG PO
[2023-11-27 19:07] VITALS: BP 129/109
[2023-11-27] MEDS ORDERED: MULTIVITAMIN CONCENTRATE (IV) 10 ML,Thiamine 100 MG,FOLIC ACID 1 MG in SODIUM CHLORIDE ... IV ONE (19:15)
[2023-11-27 19:29] LABS: BASO # 0.1 10*3/uL (0.0-0.1); BASO % 0.5 % (0.0-1.0); EOS # 0.2 10*3/uL (0.0-0.4); EOS % 2.5 % (1.0-4.0); HEMATOCRIT 43.8 % (42.0-52.0); LYMPH # 2.5 10*3/uL (1.3-4.4); LYMPH % 26.1 % (27.0-41.0); MEAN CORPUSCULAR HGB CONC 35.8 g/dl (33.0-37.0); MEAN PLATELET VOLUME 10.1 fl (9.6-12.3); MONO # 0.4 10*3/uL (0.1-1.0); MONO % 4.5 % (3.0-9.0); NEUT # 6.2 10*3/uL (2.3-7.9); NEUT % 65.8 % (47.0-73.0); PLATELET COUNT AUTOMATED 235 10*3/uL (130-400); RED BLOOD COUNT 5.41 10*6/uL (4.50-5.90); RED CELL DISTRI WIDTH 11.7 % (0-14.5); WHITE BLOOD COUNT 9.4 10*3/uL (4.8-10.8)
[2023-11-27 19:35] LABS: BILIRUBIN Negative (Negative); BLOOD 1+ (Negative); CLARITY Clear (Clear); COLOR Yellow (Yellow); GLUCOSE 3+ (Negative); KETONE Trace (Negative); LEUKO ESTERASE Negative (Negative); NITRITE Negative (Negative); PH 5.5 (4.5-8.0); SPECIFIC GRAVITY 1.015 (1.001-1.030); UROBILINOGEN 0.2 E.U./dl (0.0-1.0)
[2023-11-27 19:42] LABS: BACTERIA TRACE; URINE AMPHETAMINES Negative (1000ng/ml); URINE BARBITURATES Negative (200ng/ml); URINE BENZODIAZEPINES Negative (200ng/ml); URINE CANNABINOIDS (THC) Negative (50ng/ml); URINE COCAINE Negative (300ng/ml); URINE METHADONE Negative (300ng/ml); URINE OPIATES Negative (300ng/ml); URINE PHENCYCLIDINE Negative (25ng/ml)
[2023-11-27 19:44] LABS: ACT PARTIAL THROMBO TIME 25.5 SECONDS (20.0-32.1)
[2023-11-27 19:50] LABS: ALKALINE PHOSPHATASE 88 U/L (46-116); BUN 12 mg/dl (9-23); CHLORIDE 101 mmol/L (98-107); CPK 79 U/L (34-171); ETHYL ALCOHOL 4.4 mg/dl (<3); LIPASE 32 U/L (12-53); POTASSIUM 3.6 mmol/L (3.4-5.1); SGPT/ALT 66 U/L (5-49); TOTAL PROTEIN 7.2 gm/dL (6.0-8.0)
[2023-11-27] MEDS ORDERED: ASPIRIN ADULT L81 M2 PO (20:42)
[2023-11-27] MEDS ORDERED: LEVEMIR FLEXPEN 100 (20:43)
[2023-11-27] MEDS ORDERED: GOOD NEIGHBOR PH2 M1 PO (20:43)
[2023-11-27] MEDS ORDERED: LOSARTAN POTASS25 M1 PO (20:45)
[2023-11-27] MEDS ORDERED: IBUPROFEN 600 MG TAB PO PRN (20:55)
[2023-11-27] MEDS ORDERED: BISACODYL 10 MG SUPP R PRN (20:55)
[2023-11-27] MEDS ORDERED: ACETAMINOPHEN 500 MG TAB PO PRN (20:55)
[2023-11-27] MEDS ORDERED: MG-AL HYDROXIDE/SIMETICONE 30 ML UDC PO PRN (20:55)
[2023-11-27] MEDS ORDERED: Ondansetron Hydrochloride 4 MG/2 ML VIAL IV PRN (20:55)
[2023-11-27] MEDS ORDERED: Ondansetron Hydrochloride 4 MG TAB PO PRN (20:55)
[2023-11-27] MEDS ORDERED: NICOTINE POLACRILEX 4 MG GUM PO PRN (20:55)
[2023-11-27] MEDS ORDERED: Loperamide Hydrochloride 2 MG CAP PO PRN (20:55)
[2023-11-27] MEDS ORDERED: DEXTROSE 10 % IN WATER 250 ML IV PRN (21:00)
[2023-11-27] MEDS ORDERED: LORazepam 1 MG TAB PO SCH (21:05)
[2023-11-27] MEDS ORDERED: INSULIN LISPRO 1 UNIT/0.01 ML SQ SCH (22:00)
[2023-11-27] MEDS ORDERED: Metoprolol Tartrate 50 MG TAB PO SCH (22:00)
[2023-11-28] VITALS: BP 143/96
[2023-11-28 02:19] VITALS: BP 143/96
[2023-11-28] MEDS ORDERED: OMEPRAZOLE 20 MG CAP PO SCH (06:00)
[2023-11-28 06:57] LABS: BASO % 0.5 % (0.0-1.0); EOS # 0.6 10*3/uL (0.0-0.4); EOS % 6.4 % (1.0-4.0); HEMATOCRIT 42.4 % (42.0-52.0); LYMPH # 2.7 10*3/uL (1.3-4.4); LYMPH % 31.3 % (27.0-41.0); MEAN CELL VOLUME 81.5 fl (80.0-94.0); MEAN CORPUSCULAR HGB 28.8 pg (27.0-31.0); MEAN CORPUSCULAR HGB CONC 35.4 g/dl (33.0-37.0); MEAN PLATELET VOLUME 10.5 fl (9.6-12.3); MONO # 0.5 10*3/uL (0.1-1.0); MONO % 5.7 % (3.0-9.0); NEUT # 4.8 10*3/uL (2.3-7.9); NEUT % 55.5 % (47.0-73.0); PLATELET COUNT AUTOMATED 224 10*3/uL (130-400); RED CELL DISTRI WIDTH 11.9 % (0-14.5); WHITE BLOOD COUNT 8.6 10*3/uL (4.8-10.8)
[2023-11-28 07:03] LABS: ALKALINE PHOSPHATASE 77 U/L (46-116); BUN 12 mg/dl (9-23); CHLORIDE 100 mmol/L (98-107); POTASSIUM 3.6 mmol/L (3.4-5.1); SGPT/ALT 59 U/L (5-49); TOTAL PROTEIN 6.4 gm/dL (6.0-8.0)
[2023-11-28] MEDS ORDERED: METHOCARBAMOL 750 MG TAB PO PRN (07:35)
[2023-11-28] MEDS ORDERED: LORazepam 2 MG/ML VIAL IV PRN (07:35)
[2023-11-28] MEDS ORDERED: Water, Sterile 10 ML VIAL IV PRN (07:35)
[2023-11-28] MEDS ORDERED: Dicyclomine Hydrochloride 20 MG TAB PO PRN (07:35)
[2023-11-28] MEDS ORDERED: hydrOXYzine 50 MG CAP PO PRN (07:35)
[2023-11-28 08:00] VITALS: BP 128/75
[2023-11-28] MEDS ORDERED: LAMOTRIGINE 100 MG TAB PO SCH (10:00)
[2023-11-28] MEDS ORDERED: Thiamine 100 MG TAB PO SCH (10:00)
[2023-11-28] MEDS ORDERED: CARIPRAZINE HCL 3 MG CAPSULE PO SCH (10:00)
[2023-11-28] MEDS ORDERED: FOLIC ACID 1 MG TAB PO SCH (10:00)
[2023-11-28] MEDS ORDERED: MULTIVITAMIN 1 TAB TAB PO SCH (10:00)
[2023-11-28] MEDS ORDERED: Losartan Potassium 25 MG TAB PO SCH (10:00)
[2023-11-28] MEDS ORDERED: ASPIRIN ENTERIC COATED 81 MG TAB PO SCH (10:00)
[2023-11-28 12:00] VITALS: BP 132/72
[2023-11-28 16:00] VITALS: BP 129/78
[2023-11-28 20:00] VITALS: BP 131/80
[2023-11-28] MEDS ORDERED: LORazepam 1 MG TAB PO SCH (22:00)
[2023-11-28] MEDS ORDERED: Insulin Glargine, Recombinan 1 UNIT/0.01 ML SC SCH (22:00)
[2023-11-29] VITALS: BP 127/77
[2023-11-29 08:00] VITALS: BP 103/83
[2023-11-29 12:00] VITALS: BP 134/80
[2023-11-29 16:00] VITALS: BP 148/87
[2023-11-29 20:00] VITALS: BP 143/67
[2023-11-29] MEDS ORDERED: Insulin Glargine, Recombinan 1 UNIT/0.01 ML SC SCH (22:00)
[2023-11-30] VITALS: BP 112/56
[2023-11-30 08:00] VITALS: BP 105/59
[2023-11-30 08:29] LABS: BASO # 0.1 10*3/uL (0.0-0.1); BASO % 0.7 % (0.0-1.0); EOS # 0.5 10*3/uL (0.0-0.4); EOS % 6.3 % (1.0-4.0); HEMATOCRIT 43.8 % (42.0-52.0); LYMPH # 3.1 10*3/uL (1.3-4.4); LYMPH % 36.2 % (27.0-41.0); MEAN CELL VOLUME 83.1 fl (80.0-94.0); MEAN CORPUSCULAR HGB 29.4 pg (27.0-31.0); MEAN CORPUSCULAR HGB CONC 35.4 g/dl (33.0-37.0); MEAN PLATELET VOLUME 10.7 fl (9.6-12.3); MONO # 0.5 10*3/uL (0.1-1.0); NEUT # 4.3 10*3/uL (2.3-7.9); NEUT % 49.9 % (47.0-73.0); PLATELET COUNT AUTOMATED 196 10*3/uL (130-400); RED BLOOD COUNT 5.27 10*6/uL (4.50-5.90); RED CELL DISTRI WIDTH 12.1 % (0-14.5); WHITE BLOOD COUNT 8.6 10*3/uL (4.8-10.8)
[2023-11-30] MEDS ORDERED: LORazepam 1 MG TAB PO PRN ×2 (08:35)
[2023-11-30 08:51] LABS: BUN 15 mg/dl (9-23); CHLORIDE 103 mmol/L (98-107); POTASSIUM 3.7 mmol/L (3.4-5.1)
[2023-11-30] MEDS ORDERED: ANTIFUNGAL113 GM T ×2 (11:04→16:38)
== END 2023-11-30 11:45 | disposition home or self-care (01) | DRG 775 ==
LOC: ED 18:51 → EDHOLD 20:17 → 4E 20:17
PROVIDERS: Internal Medicine; Student in an Organized Health Care Education/Training Program; ADMIT Family Medicine; ATTEND Family Medicine
DX: F10.232 Alcohol dependence with withdrawal with perceptual disturbance (principal); E87.20 Acidosis, unspecified; F31.70 Bipolar disorder, currently in remission, most recent episode unspecified; I25.10 Atherosclerotic heart disease of native coronary artery without angina pectoris; I50.32 Chronic diastolic (congestive) heart failure; F41.1 Generalized anxiety disorder; I11.0 Hypertensive heart disease with heart failure; E87.1 Hypo-osmolality and hyponatremia; R74.01 Elevation of levels of liver transaminase levels; F17.220 Nicotine dependence, chewing tobacco, uncomplicated; E11.42 Type 2 diabetes mellitus with diabetic polyneuropathy; F90.0 Attention-deficit hyperactivity disorder, predominantly inattentive type; E78.5 Hyperlipidemia, unspecified; Z88.6 Allergy status to analgesic agent; Z88.0 Allergy status to penicillin; Z88.8 Allergy status to other drugs, medicaments and biological substances; Z83.3 Family history of diabetes mellitus; Z82.49 Family history of ischemic heart disease and other diseases of the circulatory system; Z81.1 Family history of alcohol abuse and dependence; Z82.3 Family history of stroke; Z83.6 Family history of other diseases of the respiratory system; Z71.6 Tobacco abuse counseling; Z79.4 Long term (current) use of insulin

== ENCOUNTER 2024-01-24 20:02 | Emergency (ER) | payer OTHER ==
[~2024-01-24] VITALS: Ht 180.3 cm; Wt 111.1 kg
[~2024-01-24 20:02] MED LIST changes: +ANTIFUNGAL113 GM T; +ASPIRIN ADULT L81 M2 PO; +LEVEMIR FLEXPEN 100 SQ; +LOSARTAN POTASS25 M1 PO
[2024-01-24 20:15] VITALS: BP 156/98
[2024-01-24] MEDS ORDERED: SODIUM CHLORIDE 0.9% 1,000 ML IV ONE ×2 (20:25→21:10)
[2024-01-24 20:37] LABS: BASO # 0.1 10*3/uL (0.0-0.1); BASO % 0.6 % (0.0-1.0); EOS # 0.3 10*3/uL (0.0-0.4); EOS % 2.6 % (1.0-4.0); HEMATOCRIT 45.9 % (42.0-52.0); MEAN CELL VOLUME 82.1 fl (80.0-94.0); MEAN CORPUSCULAR HGB 29.3 pg (27.0-31.0); MEAN CORPUSCULAR HGB CONC 35.7 g/dl (33.0-37.0); MEAN PLATELET VOLUME 10.7 fl (9.6-12.3); MONO # 0.6 10*3/uL (0.1-1.0); NEUT # 6.5 10*3/uL (2.3-7.9); NEUT % 62.9 % (47.0-73.0); PLATELET COUNT AUTOMATED 251 10*3/uL (130-400); RED BLOOD COUNT 5.59 10*6/uL (4.50-5.90); RED CELL DISTRI WIDTH 12.2 % (0-14.5); WHITE BLOOD COUNT 10.3 10*3/uL (4.8-10.8)
[2024-01-24 20:57] LABS: BUN 14 mg/dl (9-23); CHLORIDE 103 mmol/L (98-107)
[2024-01-24] MEDS ORDERED: INSULIN REGULAR, HUMAN 1 UNIT/0.01 ML IV ONE (21:10)
== END 2024-01-24 21:45 | disposition home or self-care (01) ==
LOC: ED 20:02
PROVIDERS: Internal Medicine
DX: E11.65 Type 2 diabetes mellitus with hyperglycemia (principal); K21.9 Gastro-esophageal reflux disease without esophagitis; I11.0 Hypertensive heart disease with heart failure; I50.9 Heart failure, unspecified; F90.9 Attention-deficit hyperactivity disorder, unspecified type; E78.00 Pure hypercholesterolemia, unspecified; F41.9 Anxiety disorder, unspecified; F31.9 Bipolar disorder, unspecified; F10.10 Alcohol abuse, uncomplicated; Z88.0 Allergy status to penicillin; Z88.5 Allergy status to narcotic agent; Z88.8 Allergy status to other drugs, medicaments and biological substances; Z87.442 Personal history of urinary calculi; Z90.89 Acquired absence of other organs; Z95.5 Presence of coronary angioplasty implant and graft; Z98.890 Other specified postprocedural states; Z72.0 Tobacco use

== ENCOUNTER 2024-01-27 06:54 | Emergency (ER) | payer OTHER ==
[~2024-01-27] VITALS: Ht 180.3 cm; Wt 105.2 kg
[2024-01-27] MEDS ORDERED: SODIUM CHLORIDE 0.9% 1,000 ML IV ONE (07:40)
[2024-01-27] MEDS ORDERED: GLIMEPIRIDE4 M1 PO (07:44)
[2024-01-27] MEDS ORDERED: INSULIN REGULAR, HUMAN 1 UNIT/0.01 ML IV ONE ×2 (07:45→09:25)
[2024-01-27] MEDS ORDERED: Labetalol Hydrochloride 20 MG/4 ML SYR IV ONE (07:45)
[2024-01-27 07:59] LABS: BASO # 0.1 10*3/uL (0.0-0.1); BASO % 0.7 % (0.0-1.0); EOS # 0.2 10*3/uL (0.0-0.4); EOS % 3.1 % (1.0-4.0); MEAN CELL VOLUME 80.9 fl (80.0-94.0); MEAN CORPUSCULAR HGB 29.3 pg (27.0-31.0); MEAN CORPUSCULAR HGB CONC 36.2 g/dl (33.0-37.0); MEAN PLATELET VOLUME 10.4 fl (9.6-12.3); MONO # 0.5 10*3/uL (0.1-1.0); NEUT # 4.9 10*3/uL (2.3-7.9); NEUT % 64.7 % (47.0-73.0); PLATELET COUNT AUTOMATED 220 10*3/uL (130-400); RED BLOOD COUNT 5.19 10*6/uL (4.50-5.90); WHITE BLOOD COUNT 7.6 10*3/uL (4.8-10.8)
[2024-01-27 08:01] LABS: VENOUS BLOOD GAS O2 SAT 94.3 % (60.0-85.0)
[2024-01-27 08:51] LABS: BUN 17 mg/dl (9-23); CHLORIDE 97 mmol/L (98-107)
[2024-01-27 11:17] VITALS: BP 134/80
== END 2024-01-27 11:17 | disposition home or self-care (01) ==
LOC: ED 06:54
PROVIDERS: Emergency Medicine
DX: E11.65 Type 2 diabetes mellitus with hyperglycemia (principal); F31.9 Bipolar disorder, unspecified; F90.9 Attention-deficit hyperactivity disorder, unspecified type; E78.5 Hyperlipidemia, unspecified; K21.9 Gastro-esophageal reflux disease without esophagitis; I11.0 Hypertensive heart disease with heart failure; I50.9 Heart failure, unspecified; F41.9 Anxiety disorder, unspecified; E78.00 Pure hypercholesterolemia, unspecified; F10.10 Alcohol abuse, uncomplicated; Z72.0 Tobacco use; Z88.0 Allergy status to penicillin; Z88.5 Allergy status to narcotic agent; Z88.8 Allergy status to other drugs, medicaments and biological substances; Z95.5 Presence of coronary angioplasty implant and graft; Z90.89 Acquired absence of other organs; Z98.890 Other specified postprocedural states

== ENCOUNTER 2024-05-01 00:21 | Emergency (ER) | payer OTHER ==
[~2024-05-01] VITALS: Ht 177.8 cm; Wt 108.9 kg
[~2024-05-01 00:21] MED LIST changes: +GLIMEPIRIDE4 M1 PO; +LANTUS SOL100 UNIT/1 SC; +Nicorette Gum4 MG PO; +TAB-A-VITE TA400 MCG PO
[2024-05-01] MEDS ORDERED: INSULIN REGULAR, HUMAN 1 UNIT/0.01 ML SC ONE (00:45)
[2024-05-01 00:51] VITALS: BP 141/68
[2024-05-06] MEDS ORDERED: VIVITROL380 MG PO (06:46)
== END 2024-05-01 00:55 | disposition home or self-care (01) ==
LOC: ED 00:21
DX: E11.65 Type 2 diabetes mellitus with hyperglycemia (principal); K21.9 Gastro-esophageal reflux disease without esophagitis; I11.0 Hypertensive heart disease with heart failure; I50.9 Heart failure, unspecified; F90.9 Attention-deficit hyperactivity disorder, unspecified type; F31.9 Bipolar disorder, unspecified; F41.9 Anxiety disorder, unspecified; E78.00 Pure hypercholesterolemia, unspecified; F10.10 Alcohol abuse, uncomplicated; Z87.442 Personal history of urinary calculi; Z88.5 Allergy status to narcotic agent; Z88.0 Allergy status to penicillin; Z88.8 Allergy status to other drugs, medicaments and biological substances; Z95.5 Presence of coronary angioplasty implant and graft; Z90.89 Acquired absence of other organs; Z98.890 Other specified postprocedural states; Z79.82 Long term (current) use of aspirin; Z79.899 Other long term (current) drug therapy; Z79.4 Long term (current) use of insulin; Z79.84 Long term (current) use of oral hypoglycemic drugs; Z87.891 Personal history of nicotine dependence

== ENCOUNTER → 2024-06-30 | Outpatient (CLI) | payer OTHER ==
[~2024-06-30] MED LIST changes: +ATORVASTATIN CA40 M1 PO; +VIVITROL380 MG PO
== END | disposition home or self-care (01) ==
LOC: RAD 08:27
PROVIDERS: ATTEND Chiropractor
DX: M54.50 Low back pain, unspecified (principal); G89.29 Other chronic pain

== ENCOUNTER 2024-07-15 04:22 | Inpatient (IN) | payer OTHER ==
[~2024-07-15] VITALS: Ht 180.3 cm; Wt 106.6 kg
[2024-07-15 04:38] VITALS: BP 137/89
[2024-07-15] MEDS ORDERED: SODIUM CHLORIDE 0.9% 500 ML IV ONE (04:55)
[2024-07-15 05:29] LABS: URINE AMPHETAMINES Negative (1000ng/ml); URINE BARBITURATES Negative (200ng/ml); URINE BENZODIAZEPINES Negative (200ng/ml); URINE CANNABINOIDS (THC) Negative (50ng/ml); URINE COCAINE Negative (300ng/ml); URINE METHADONE Negative (300ng/ml); URINE OPIATES Negative (300ng/ml); URINE PHENCYCLIDINE Negative (25ng/ml)
[2024-07-15 05:38] LABS: ALKALINE PHOSPHATASE 95 U/L (46-116); BUN 14 mg/dl (9-23); CHLORIDE 98 mmol/L (98-107); ETHYL ALCOHOL 77.6 mg/dl (<3); POTASSIUM 3.4 mmol/L (3.4-5.1); SGPT/ALT 46 U/L (5-49); TOTAL PROTEIN 7.2 gm/dL (6.0-8.0)
[2024-07-15 06:03] LABS: BASO % 0.4 % (0.0-1.0); EOS # 0.1 10*3/uL (0.0-0.4); EOS % 1.3 % (1.0-4.0); HEMATOCRIT 45.2 % (42.0-52.0); MEAN CELL VOLUME 81.1 fl (80.0-94.0); MEAN CORPUSCULAR HGB 28.9 pg (27.0-31.0); MEAN CORPUSCULAR HGB CONC 35.6 g/dl (33.0-37.0); MEAN PLATELET VOLUME 10.9 fl (9.6-12.3); MONO # 0.4 10*3/uL (0.1-1.0); NEUT # 4.5 10*3/uL (2.3-7.9); NEUT % 64.5 % (47.0-73.0); PLATELET COUNT AUTOMATED 241 10*3/uL (130-400); RED BLOOD COUNT 5.57 10*6/uL (4.50-5.90)
[2024-07-15] MEDS ORDERED: Ondansetron Hydrochloride 4 MG/2 ML VIAL IV PRN (07:30)
[2024-07-15] MEDS ORDERED: BISACODYL 10 MG SUPP R PRN (07:30)
[2024-07-15] MEDS ORDERED: BISACODYL 5 MG TAB PO PRN (07:30)
[2024-07-15] MEDS ORDERED: TEMAZEPAM 15 MG CAP PO PRN (07:30)
[2024-07-15] MEDS ORDERED: Magnesium Hydroxide 30 ML UDC PO PRN (07:30)
[2024-07-15] MEDS ORDERED: LORazepam 2 MG/ML VIAL IV PRN (07:35)
[2024-07-15] MEDS ORDERED: hydrOXYzine 50 MG CAP PO PRN (07:35)
[2024-07-15] MEDS ORDERED: DEXTROSE 50% 25 GM/50 ML VIAL IV PRN (07:35)
[2024-07-15] MEDS ORDERED: Dicyclomine Hydrochloride 20 MG TAB PO PRN (07:35)
[2024-07-15] MEDS ORDERED: METHOCARBAMOL 750 MG TAB PO PRN (07:35)
[2024-07-15] MEDS ORDERED: FOLIC ACID 1 MG TAB PO ONE ×2 (07:35)
[2024-07-15] MEDS ORDERED: Water, Sterile 10 ML VIAL IV PRN (07:35)
[2024-07-15] MEDS ORDERED: MAGNESIUM SULFATE 100 ML IV ONE (07:35)
[2024-07-15] MEDS ORDERED: Thiamine 200 MG/2 ML VIAL IV SCH (08:00)
[2024-07-15] MEDS ORDERED: LORazepam 1 MG TAB PO SCH (08:00)
[2024-07-15 09:54] VITALS: BP 133/78
[2024-07-15] MEDS ORDERED: MULTIVITAMIN 1 TAB TAB PO SCH (10:00)
[2024-07-15] MEDS ORDERED: Enoxaparin Sodium 40 MG/0.4 ML SYR SC SCH ×2 (10:00)
[2024-07-15] MEDS ORDERED: NICOTINE POLACRILEX 4 MG GUM PO PRN (11:10)
[2024-07-15] MEDS ORDERED: INSULIN LISPRO 1 UNIT/0.01 ML SQ SCH (11:30)
[2024-07-15 12:22] VITALS: BP 141/94
[2024-07-15 15:55] VITALS: BP 132/91
[2024-07-15 19:45] VITALS: BP 144/86
[2024-07-15] MEDS ORDERED: Insulin Glargine, Recombinan 1 UNIT/0.01 ML SC SCH (22:00)
[2024-07-15] MEDS ORDERED: ATORVASTATIN CALCIUM 40 MG TABLET PO SCH (22:00)
[2024-07-15 23:37] VITALS: BP 147/87
[2024-07-16 03:47] VITALS: BP 136/91
[2024-07-16] MEDS ORDERED: Pantoprazole Sodium 40 MG TAB PO SCH (06:00)
[2024-07-16 06:10] VITALS: BP 134/79
[2024-07-16 06:15] LABS: BASO % 0.5 % (0.0-1.0); EOS # 0.3 10*3/uL (0.0-0.4); EOS % 3.6 % (1.0-4.0); HEMATOCRIT 45.9 % (42.0-52.0); MEAN CELL VOLUME 82.6 fl (80.0-94.0); MEAN CORPUSCULAR HGB CONC 35.1 g/dl (33.0-37.0); MEAN PLATELET VOLUME 10.5 fl (9.6-12.3); MONO # 0.5 10*3/uL (0.1-1.0); MONO % 6.5 % (3.0-9.0); NEUT # 4.5 10*3/uL (2.3-7.9); NEUT % 56.7 % (47.0-73.0); PLATELET COUNT AUTOMATED 217 10*3/uL (130-400); RED BLOOD COUNT 5.56 10*6/uL (4.50-5.90); RED CELL DISTRI WIDTH 12.4 % (0-14.5)
[2024-07-16 06:31] LABS: ACT PARTIAL THROMBO TIME 25.4 SECONDS (20.0-32.1)
[2024-07-16 06:38] LABS: ALKALINE PHOSPHATASE 93 U/L (46-116); BUN 16 mg/dl (9-23); CHLORIDE 101 mmol/L (98-107); CHOLESTEROL 163 mg/dL (<200); FREE T4 1.09 ng/dl (0.89-1.76); LDL CHOLESTEROL 54 mg/dL (9-159); POTASSIUM 3.7 mmol/L (3.4-5.1); SGPT/ALT 46 U/L (5-49); TOTAL PROTEIN 6.6 gm/dL (6.0-8.0); TRIGLYCERIDES 380 mg/dl (<150)
[2024-07-16] MEDS ORDERED: ASPIRIN ENTERIC COATED 81 MG TAB PO SCH (10:00)
[2024-07-16] MEDS ORDERED: CARIPRAZINE HCL 3 MG CAPSULE PO SCH (10:00)
[2024-07-16] MEDS ORDERED: Losartan Potassium 25 MG TAB PO SCH (10:00)
[2024-07-16] MEDS ORDERED: LORazepam 1 MG TAB PO SCH (10:00)
[2024-07-16 10:05] VITALS: BP 136/80
[2024-07-16] MEDS ORDERED: LORAZEPAM1 MG PO (10:50)
[2024-07-17] MEDS ORDERED: LORazepam 1 MG TAB PO PRN (04:00)
== END 2024-07-16 11:42 | disposition home or self-care (01) | DRG 775 ==
LOC: ED 04:22 → EDHOLD 06:40
PROVIDERS: Emergency Medicine; Student in an Organized Health Care Education/Training Program; ADMIT Family Medicine; ATTEND Family Medicine
DX: F10.239 Alcohol dependence with withdrawal, unspecified (principal); E11.65 Type 2 diabetes mellitus with hyperglycemia; F31.9 Bipolar disorder, unspecified; F90.9 Attention-deficit hyperactivity disorder, unspecified type; I25.10 Atherosclerotic heart disease of native coronary artery without angina pectoris; I50.32 Chronic diastolic (congestive) heart failure; E78.5 Hyperlipidemia, unspecified; I11.0 Hypertensive heart disease with heart failure; F41.1 Generalized anxiety disorder; K21.9 Gastro-esophageal reflux disease without esophagitis; E11.40 Type 2 diabetes mellitus with diabetic neuropathy, unspecified; Z88.0 Allergy status to penicillin; Z88.8 Allergy status to other drugs, medicaments and biological substances; Z91.09 Other allergy status, other than to drugs and biological substances; Z79.899 Other long term (current) drug therapy; Z79.01 Long term (current) use of anticoagulants; Z79.2 Long term (current) use of antibiotics; Z72.0 Tobacco use; Z83.3 Family history of diabetes mellitus; Z82.3 Family history of stroke; Z82.49 Family history of ischemic heart disease and other diseases of the circulatory system; Z81.1 Family history of alcohol abuse and dependence; Z82.5 Family history of asthma and other chronic lower respiratory diseases; Y90.0 Blood alcohol level of less than 20 mg/100 ml

== ENCOUNTER 2024-07-22 01:37 | Emergency (ER) | payer OTHER ==
[~2024-07-22] VITALS: Ht 180.3 cm; Wt 104.8 kg
[~2024-07-22 01:37] MED LIST changes: +LORAZEPAM1 MG PO
[2024-07-22] MEDS ORDERED: ZYRTEC10 M2 PO (02:32)
[2024-07-22] MEDS ORDERED: diazePAM 5 MG TAB PO ONE (03:15)
[2024-07-22 03:24] LABS: BASO % 0.4 % (0.0-1.0); EOS # 0.2 10*3/uL (0.0-0.4); EOS % 2.3 % (1.0-4.0); HEMATOCRIT 44.1 % (42.0-52.0); MEAN CELL VOLUME 81.1 fl (80.0-94.0); MEAN CORPUSCULAR HGB 28.9 pg (27.0-31.0); MEAN CORPUSCULAR HGB CONC 35.6 g/dl (33.0-37.0); MEAN PLATELET VOLUME 10.3 fl (9.6-12.3); MONO # 0.5 10*3/uL (0.1-1.0); NEUT % 52.8 % (47.0-73.0); PLATELET COUNT AUTOMATED 214 10*3/uL (130-400); RED BLOOD COUNT 5.44 10*6/uL (4.50-5.90); RED CELL DISTRI WIDTH 12.1 % (0-14.5); WHITE BLOOD COUNT 7.5 10*3/uL (4.8-10.8)
[2024-07-22 03:48] LABS: ALKALINE PHOSPHATASE 92 U/L (46-116); BUN 9 mg/dl (9-23); CHLORIDE 100 mmol/L (98-107); ETHYL ALCOHOL 5.7 mg/dl (<3); POTASSIUM 3.7 mmol/L (3.4-5.1); SGPT/ALT 58 U/L (5-49); TOTAL PROTEIN 6.9 gm/dL (6.0-8.0)
[2024-07-22 04:00] LABS: URINE AMPHETAMINES Negative (1000ng/ml); URINE BARBITURATES Negative (200ng/ml); URINE BENZODIAZEPINES Negative (200ng/ml); URINE CANNABINOIDS (THC) Negative (50ng/ml); URINE COCAINE Negative (300ng/ml); URINE METHADONE Negative (300ng/ml); URINE OPIATES Negative (300ng/ml); URINE PHENCYCLIDINE Negative (25ng/ml)
[2024-07-22 05:29] VITALS: BP 101/64
== END 2024-07-22 06:04 | disposition home or self-care (01) ==
LOC: ED 01:37
PROVIDERS: Emergency Medicine
DX: F10.20 Alcohol dependence, uncomplicated (principal); R74.01 Elevation of levels of liver transaminase levels; R25.1 Tremor, unspecified; L29.9 Pruritus, unspecified; Z88.8 Allergy status to other drugs, medicaments and biological substances; Z88.0 Allergy status to penicillin; Z88.5 Allergy status to narcotic agent; Z79.899 Other long term (current) drug therapy; Z79.82 Long term (current) use of aspirin; Z79.4 Long term (current) use of insulin; Z79.84 Long term (current) use of oral hypoglycemic drugs; Z98.890 Other specified postprocedural states; Z90.89 Acquired absence of other organs; Z87.891 Personal history of nicotine dependence; Y90.0 Blood alcohol level of less than 20 mg/100 ml

== ENCOUNTER → 2024-08-22 | Outpatient (CLI) | payer OTHER ==
[~2024-08-22] MED LIST changes: +ZYRTEC10 M2 PO
== END | disposition home or self-care (01) ==
LOC: RESCLI 10:22
PROVIDERS: ATTEND Student in an Organized Health Care Education/Training Program
DX: I10 Essential (primary) hypertension (principal); F10.21 Alcohol dependence, in remission; K21.9 Gastro-esophageal reflux disease without esophagitis; F41.1 Generalized anxiety disorder; E78.5 Hyperlipidemia, unspecified; F17.220 Nicotine dependence, chewing tobacco, uncomplicated; F31.30 Bipolar disorder, current episode depressed, mild or moderate severity, unspecified; E11.9 Type 2 diabetes mellitus without complications; K58.9 Irritable bowel syndrome, unspecified; Z79.899 Other long term (current) drug therapy; Z79.82 Long term (current) use of aspirin; Z88.0 Allergy status to penicillin; Z88.8 Allergy status to other drugs, medicaments and biological substances

== ENCOUNTER → 2024-08-28 | Outpatient (CLI) | payer OTHER | END | disposition home or self-care (01) | LOC: RESCLI 02:40 | PROVIDERS: ATTEND Internal Medicine | DX: I10 Essential (primary) hypertension (principal); F10.21 Alcohol dependence, in remission; E11.9 Type 2 diabetes mellitus without complications; F17.200 Nicotine dependence, unspecified, uncomplicated; F41.1 Generalized anxiety disorder; F17.220 Nicotine dependence, chewing tobacco, uncomplicated; E78.5 Hyperlipidemia, unspecified; K21.9 Gastro-esophageal reflux disease without esophagitis; F31.30 Bipolar disorder, current episode depressed, mild or moderate severity, unspecified; Z79.899 Other long term (current) drug therapy; Z79.82 Long term (current) use of aspirin; Z98.890 Other specified postprocedural states; Z88.0 Allergy status to penicillin ==

== ENCOUNTER 2024-09-11 08:03 | Emergency (ER) | payer OTHER ==
[~2024-09-11] VITALS: Ht 180.3 cm; Wt 111.1 kg
[2024-09-11 08:09] VITALS: BP 156/93
[2024-09-11] MEDS ORDERED: NITROGLYCERIN 1 IN PACKET T ONE (08:15)
[2024-09-11] MEDS ORDERED: ASPIRIN 325 MG ENTERIC COATED PO ONE (08:15)
[2024-09-11 08:27] LABS: BASO # 0.0 10*3/uL (0.0-0.1); BASO % 0.5 % (0.0-1.0); EOS # 0.2 10*3/uL (0.0-0.4); EOS % 3.0 % (1.0-4.0); MEAN CELL VOLUME 81.4 fl (80.0-94.0); MEAN CORPUSCULAR HGB 29.3 pg (27.0-31.0); MEAN PLATELET VOLUME 10.3 fl (9.6-12.3); MONO # 0.5 10*3/uL (0.1-1.0); MONO % 6.5 % (3.0-9.0); NEUT # 5.2 10*3/uL (2.3-7.9); NEUT % 64.9 % (47.0-73.0); NUCLEATED RED BLOOD CELL 0.0 % (0.0-0.0); NUCLEATED RED BLOOD CELL 0.0 10*3/uL (0.0-0.0); PLATELET COUNT AUTOMATED 221 10*3/uL (130-400); RED CELL DISTRI WIDTH 12.1 % (0-14.5)
[2024-09-11 08:47] LABS: BUN 9 mg/dl (9-23); SGPT/ALT 35 U/L (5-49)
[2024-09-11 08:50] LABS: CPK 86 U/L (34-171)
[2024-09-11] MEDS ORDERED: METHOCARBAMOL750 M1 PO (10:42)
[2024-09-11] MEDS ORDERED: PREDNISONE20 M1 PO (10:42)
== END 2024-09-11 10:54 | disposition home or self-care (01) ==
LOC: ED 08:03
PROVIDERS: Emergency Medicine
DX: M94.0 Chondrocostal junction syndrome [Tietze] (principal); F10.90 Alcohol use, unspecified, uncomplicated; F17.290 Nicotine dependence, other tobacco product, uncomplicated; Z98.890 Other specified postprocedural states; Z90.89 Acquired absence of other organs; Y90.9 Presence of alcohol in blood, level not specified

== ENCOUNTER 2024-09-21 13:50 | Emergency (ER) | payer OTHER ==
[~2024-09-21] VITALS: Ht 154.9 cm; Wt 111.1 kg
[~2024-09-21 13:50] MED LIST changes: +PREDNISONE20 M1 PO
[2024-09-21 13:57] VITALS: BP 155/95
[2024-09-21 14:31] LABS: BASO # 0.0 10*3/uL (0.0-0.1); BASO % 0.5 % (0.0-1.0); EOS # 0.2 10*3/uL (0.0-0.4); EOS % 2.2 % (1.0-4.0); MEAN CELL VOLUME 81.4 fl (80.0-94.0); MEAN CORPUSCULAR HGB 29.3 pg (27.0-31.0); MEAN PLATELET VOLUME 10.5 fl (9.6-12.3); MONO # 0.4 10*3/uL (0.1-1.0); MONO % 5.3 % (3.0-9.0); NEUT # 5.7 10*3/uL (2.3-7.9); NEUT % 68.2 % (47.0-73.0); NUCLEATED RED BLOOD CELL 0.0 % (0.0-0.0); NUCLEATED RED BLOOD CELL 0.0 10*3/uL (0.0-0.0); PLATELET COUNT AUTOMATED 201 10*3/uL (130-400); RED CELL DISTRI WIDTH 12.0 % (0-14.5)
[2024-09-21] MEDS ORDERED: IOHEXOL 300 MG/ML 100 ML VIAL IV ONE (14:40)
[2024-09-21 15:14] LABS: BUN 15 mg/dl (9-23); SGPT/ALT 35 U/L (5-49)
[2024-09-21] MEDS ORDERED: INSULIN REGULAR, HUMAN 1 UNIT/0.01 ML IV ONE (15:20)
[2024-09-21] MEDS ORDERED: SODIUM CHLORIDE 0.9% 1,000 ML IV ONE (15:20)
[2024-09-21 16:18] LABS: BILIRUBIN Negative (Negative); BLOOD Trace-Intact (Negative); CLARITY Clear (Clear); COLOR Yellow (Yellow); KETONE Negative (Negative); LEUKO ESTERASE Negative (Negative); NITRITE Negative (Negative); PH 7.0 (4.5-8.0); SPECIFIC GRAVITY >= 1.030 (1.001-1.030); UROBILINOGEN 0.2 E.U./dl (0.0-1.0)
[2024-09-21 16:26] LABS: BACTERIA 1+; RBC 21-30 rbc/hpf (0-2)
== END 2024-09-21 17:35 | disposition home or self-care (01) ==
LOC: ED 13:50
PROVIDERS: Internal Medicine
DX: K59.00 Constipation, unspecified (principal); E11.65 Type 2 diabetes mellitus with hyperglycemia; Z88.8 Allergy status to other drugs, medicaments and biological substances; Z88.0 Allergy status to penicillin; Z88.5 Allergy status to narcotic agent; Z79.899 Other long term (current) drug therapy; Z79.82 Long term (current) use of aspirin; Z79.4 Long term (current) use of insulin; Z79.84 Long term (current) use of oral hypoglycemic drugs; Z90.89 Acquired absence of other organs; Z87.891 Personal history of nicotine dependence

== ENCOUNTER → 2024-10-09 | Outpatient (CLI) | payer OTHER | END | disposition home or self-care (01) | LOC: RESCLI 01:22 | PROVIDERS: ATTEND Internal Medicine | DX: F10.21 Alcohol dependence, in remission (principal); I11.0 Hypertensive heart disease with heart failure; I50.9 Heart failure, unspecified; F17.220 Nicotine dependence, chewing tobacco, uncomplicated; F41.1 Generalized anxiety disorder; E78.5 Hyperlipidemia, unspecified; K21.9 Gastro-esophageal reflux disease without esophagitis; F31.30 Bipolar disorder, current episode depressed, mild or moderate severity, unspecified; E11.42 Type 2 diabetes mellitus with diabetic polyneuropathy; M62.830 Muscle spasm of back; M54.2 Cervicalgia; M54.9 Dorsalgia, unspecified; M25.519 Pain in unspecified shoulder; Z79.899 Other long term (current) drug therapy; Z98.890 Other specified postprocedural states; Z88.8 Allergy status to other drugs, medicaments and biological substances; Z88.5 Allergy status to narcotic agent; Z88.0 Allergy status to penicillin; Z79.82 Long term (current) use of aspirin; Z79.84 Long term (current) use of oral hypoglycemic drugs; Z79.4 Long term (current) use of insulin ==

== ENCOUNTER → 2024-11-06 | Outpatient (CLI) | payer OTHER | END | disposition home or self-care (01) | LOC: LAB 13:33 | PROVIDERS: ATTEND Internal Medicine | DX: E11.42 Type 2 diabetes mellitus with diabetic polyneuropathy (principal) ==

== ENCOUNTER → 2024-11-07 | Outpatient (CLI) | payer OTHER | END | disposition home or self-care (01) | LOC: LAB 10:35 | PROVIDERS: ATTEND Internal Medicine | DX: E11.42 Type 2 diabetes mellitus with diabetic polyneuropathy (principal) ==

== ENCOUNTER 2024-11-08 14:11 | Emergency (ER) | payer OTHER ==
[~2024-11-08] VITALS: Ht 180.3 cm; Wt 111.1 kg
[2024-11-08 14:18] VITALS: BP 142/98
[2024-11-08] MEDS ORDERED: ZITHROMAX250 MG PO (14:48)
== END 2024-11-08 15:20 | disposition home or self-care (01) ==
LOC: ED 14:11
DX: J01.90 Acute sinusitis, unspecified (principal); K21.9 Gastro-esophageal reflux disease without esophagitis; I11.0 Hypertensive heart disease with heart failure; I50.9 Heart failure, unspecified; E11.9 Type 2 diabetes mellitus without complications; F31.9 Bipolar disorder, unspecified; F41.9 Anxiety disorder, unspecified; Z98.890 Other specified postprocedural states; F17.290 Nicotine dependence, other tobacco product, uncomplicated; Z87.442 Personal history of urinary calculi; Z90.89 Acquired absence of other organs; Z88.0 Allergy status to penicillin; Z88.5 Allergy status to narcotic agent; Z88.8 Allergy status to other drugs, medicaments and biological substances

== ENCOUNTER → 2024-11-08 | Outpatient (CLI) | payer OTHER | END | disposition home or self-care (01) | LOC: RESCLI 13:45 | PROVIDERS: ATTEND Family Medicine | DX: E11.42 Type 2 diabetes mellitus with diabetic polyneuropathy (principal); I10 Essential (primary) hypertension; F41.1 Generalized anxiety disorder; E78.5 Hyperlipidemia, unspecified; K21.9 Gastro-esophageal reflux disease without esophagitis; R07.9 Chest pain, unspecified; F31.30 Bipolar disorder, current episode depressed, mild or moderate severity, unspecified; Z79.899 Other long term (current) drug therapy; Z88.8 Allergy status to other drugs, medicaments and biological substances; Z98.890 Other specified postprocedural states ==

== ENCOUNTER → 2024-11-13 | Outpatient (CLI) | payer OTHER | END | disposition home or self-care (01) | LOC: RESCLI 01:30 | PROVIDERS: ATTEND Student in an Organized Health Care Education/Training Program | DX: I10 Essential (primary) hypertension (principal); F41.1 Generalized anxiety disorder; E11.42 Type 2 diabetes mellitus with diabetic polyneuropathy; E78.5 Hyperlipidemia, unspecified; K21.9 Gastro-esophageal reflux disease without esophagitis; F31.30 Bipolar disorder, current episode depressed, mild or moderate severity, unspecified; K31.84 Gastroparesis; J30.9 Allergic rhinitis, unspecified; Z79.82 Long term (current) use of aspirin; Z79.899 Other long term (current) drug therapy; Z98.890 Other specified postprocedural states; Z88.0 Allergy status to penicillin; Z88.5 Allergy status to narcotic agent ==

== ENCOUNTER 2024-12-05 10:41 | Emergency (ER) | payer OTHER ==
[~2024-12-05] VITALS: Ht 180.3 cm; Wt 103.9 kg
[2024-12-05 10:48] VITALS: BP 170/101
[2024-12-05] MEDS ORDERED: INSULIN REGULAR, HUMAN 1 UNIT/0.01 ML IV ONE (10:55)
[2024-12-05] MEDS ORDERED: Ondansetron Hydrochloride 4 MG/2 ML VIAL IV ONE (10:55)
[2024-12-05] MEDS ORDERED: fentaNYL CITRATE/PF 50 MCG/ML SYRINGE IV ONE (10:55)
[2024-12-05 11:09] LABS: BASO # 0.0 10*3/uL (0.0-0.1); BASO % 0.5 % (0.0-1.0); EOS # 0.2 10*3/uL (0.0-0.4); EOS % 3.1 % (1.0-4.0); MEAN CELL VOLUME 81.0 fl (80.0-94.0); MEAN CORPUSCULAR HGB 29.1 pg (27.0-31.0); MEAN PLATELET VOLUME 10.0 fl (9.6-12.3); MONO # 0.4 10*3/uL (0.1-1.0); MONO % 6.8 % (3.0-9.0); NEUT # 3.6 10*3/uL (2.3-7.9); NEUT % 61.6 % (47.0-73.0); NUCLEATED RED BLOOD CELL 0.0 % (0.0-0.0); NUCLEATED RED BLOOD CELL 0.0 10*3/uL (0.0-0.0); PLATELET COUNT AUTOMATED 186 10*3/uL (130-400); RED CELL DISTRI WIDTH 12.3 % (0-14.5); VENOUS BLOOD GAS O2 SAT 93.3 % (60.0-85.0)
[2024-12-05 11:32] LABS: BUN 10 mg/dl (9-23)
[2024-12-06] MEDS ORDERED: REGLAN10 M1 PO (11:25)
== END 2024-12-05 11:59 | disposition home or self-care (01) ==
LOC: ED 10:41
PROVIDERS: Emergency Medicine
DX: E11.65 Type 2 diabetes mellitus with hyperglycemia (principal); M79.671 Pain in right foot; M79.672 Pain in left foot; I11.0 Hypertensive heart disease with heart failure; I50.9 Heart failure, unspecified; I25.10 Atherosclerotic heart disease of native coronary artery without angina pectoris; F31.9 Bipolar disorder, unspecified; E78.5 Hyperlipidemia, unspecified; Z88.8 Allergy status to other drugs, medicaments and biological substances; Z88.0 Allergy status to penicillin; Z88.5 Allergy status to narcotic agent; Z79.899 Other long term (current) drug therapy; Z79.82 Long term (current) use of aspirin; Z79.4 Long term (current) use of insulin; Z79.84 Long term (current) use of oral hypoglycemic drugs; Z98.890 Other specified postprocedural states; Z90.89 Acquired absence of other organs; Z87.891 Personal history of nicotine dependence

== ENCOUNTER 2024-12-06 09:31 | Emergency (ER) | payer OTHER ==
[~2024-12-06] VITALS: Ht 180.3 cm; Wt 102.1 kg
[2024-12-06 09:44] VITALS: BP 163/94
[2024-12-06] MEDS ORDERED: SODIUM CHLORIDE 0.9% 1,000 ML IV ONE (09:50)
[2024-12-06] MEDS ORDERED: fentaNYL CITRATE/PF 50 MCG/ML SYRINGE IV ONE (09:50)
[2024-12-06] MEDS ORDERED: Metoclopramide Hydrochloride 10 MG/2 ML VIAL IV ONE (09:50)
[2024-12-06] MEDS ORDERED: diphenhydrAMINE hydrochloride 50 MG/ML VIAL IV ONE (09:50)
[2024-12-06 10:05] LABS: BASO # 0.0 10*3/uL (0.0-0.1); BASO % 0.5 % (0.0-1.0); EOS # 0.2 10*3/uL (0.0-0.4); EOS % 2.7 % (1.0-4.0); MEAN CELL VOLUME 82.6 fl (80.0-94.0); MEAN CORPUSCULAR HGB 28.9 pg (27.0-31.0); MEAN PLATELET VOLUME 10.1 fl (9.6-12.3); MONO # 0.4 10*3/uL (0.1-1.0); MONO % 6.6 % (3.0-9.0); NEUT # 4.1 10*3/uL (2.3-7.9); NEUT % 62.4 % (47.0-73.0); NUCLEATED RED BLOOD CELL 0.0 % (0.0-0.0); NUCLEATED RED BLOOD CELL 0.0 10*3/uL (0.0-0.0); PLATELET COUNT AUTOMATED 208 10*3/uL (130-400); RED CELL DISTRI WIDTH 12.2 % (0-14.5)
[2024-12-06 10:28] LABS: BUN 8 mg/dl (9-23)
[2024-12-06] MEDS ORDERED: fentaNYL CITRATE/PF 50 MCG/ML SYRINGE IM ONE (10:30)
[2024-12-06] MEDS ORDERED: Metoclopramide Hydrochloride 10 MG/2 ML VIAL IM ONE (10:35)
[2024-12-06] MEDS ORDERED: REGLAN10 M1 PO (11:25)
== END 2024-12-06 11:58 | disposition home or self-care (01) ==
LOC: ED 09:31
PROVIDERS: Emergency Medicine
DX: R07.89 Other chest pain (principal); R11.2 Nausea with vomiting, unspecified; R19.7 Diarrhea, unspecified; E11.9 Type 2 diabetes mellitus without complications; I10 Essential (primary) hypertension; E78.5 Hyperlipidemia, unspecified; F17.200 Nicotine dependence, unspecified, uncomplicated; Z88.8 Allergy status to other drugs, medicaments and biological substances; Z88.0 Allergy status to penicillin; Z88.5 Allergy status to narcotic agent; Z79.899 Other long term (current) drug therapy; Z79.82 Long term (current) use of aspirin; Z79.4 Long term (current) use of insulin; Z79.84 Long term (current) use of oral hypoglycemic drugs; Z98.890 Other specified postprocedural states; Z90.89 Acquired absence of other organs

== ENCOUNTER → 2024-12-18 | Outpatient (CLI) | payer OTHER ==
[~2024-12-18] MED LIST changes: +REGLAN10 M1 PO
== END | disposition home or self-care (01) ==
LOC: RESCLI 00:22
PROVIDERS: ATTEND Internal Medicine
DX: E11.65 Type 2 diabetes mellitus with hyperglycemia (principal); E11.21 Type 2 diabetes mellitus with diabetic nephropathy; E11.42 Type 2 diabetes mellitus with diabetic polyneuropathy; E78.5 Hyperlipidemia, unspecified; K31.84 Gastroparesis; I11.0 Hypertensive heart disease with heart failure; I50.30 Unspecified diastolic (congestive) heart failure; F41.1 Generalized anxiety disorder; J30.9 Allergic rhinitis, unspecified; Z79.82 Long term (current) use of aspirin; Z79.899 Other long term (current) drug therapy; Z88.0 Allergy status to penicillin; Z88.8 Allergy status to other drugs, medicaments and biological substances; Z98.890 Other specified postprocedural states